=== PATIENT | male | born 1960 | race Caucasian/White ===

== ENCOUNTER 2024-02-15 08:23 | Emergency (ER) | payer OTHER, SELFPAY ==
--- NOTE | ~2024-02-15 | CT_ITS ---
EXAMINATION: CT HEAD WITHOUT CONTRAST CLINICAL INFORMATION: Mechanical fall. Blunt head trauma without loss of consciousness, significant head injury and posttraumatic headache and dizziness. COMPARISON: None available. TECHNIQUE: Contiguous axial imaging was performed from the skull base to vertex without intravenous administration of contrast. This CT examination was performed using dose optimization techniques as appropriate, variously including the following: *Automated exposure control *Adjustment of mA and/or kV according to patient size (this includes techniques or standardized protocols for targeted exams where dose is matched to indication/reason for exam; i.e. extremities or head) *Use of iterative reconstruction technique DLP: 891.31 mGy-cm FINDINGS: Ventricles, sulci and cisterns are normal for the patient's age. There is no midline shift, no abnormal intra- or extra- axial fluid accumulation. [place] and white matter differentiation is normal. Bone window images show no evidence of skull fracture. CT/CT cervical spine wo IV con IMPRESSION: 1. Normal CT scan of the brain. 2. No intracranial hemorrhage or skull fracture is seen. 3. No evidence of space occupying lesion could be found. 4. The current plain CT scan of the brain shows no diagnostic evidence of acute cerebral infarction. EXAMINATION: CT CERVICAL SPINE WITHOUT CONTRAST CLINICAL INFORMATION: Mechanical fall. Blunt head trauma without loss of consciousness, significant head injury and posttraumatic headache and dizziness. COMPARISON: None available. TECHNIQUE: Multiple 2.0 mm axial images were obtained from base of skull to T1 levels without IV contrast enhancement. Sagittal and coronal 2.0 mm bone window images were reconstructed from axial image data. This CT examination was performed using dose optimization techniques as appropriate, variously including the following: *Automated exposure control *Adjustment of mA and/or kV according to patient size (this includes techniques or standardized protocols for targeted exams where dose is matched to indication/reason for exam; i.e. extremities or head) *Use of iterative reconstruction technique DLP: 733.91 mGy-cm FINDINGS: C1/C2: Bony structures are intact with normal alignment. There is no spinal stenosis. C2/C3: Bony structures are intact with normal alignment. There is no spinal stenosis. Bilateral C2/C3 neuroforamina are patent. Bilateral apophyseal joints are intact with normal alignment. C3/C4: Bony structures are intact with normal alignment. There is no spinal stenosis. There is moderate asymmetric left C3/C4 neural foraminal stenosis. Bilateral apophyseal joints are intact with normal alignment. C4/C5: Bony structures are intact with normal alignment. Large sharp anterior bridging syndesmophytes are present. There is no spinal stenosis. Bilateral C4/C5 neuroforamina are patent. Bilateral apophyseal joints are intact with normal alignment. C5/C6: Bony structures are intact with normal alignment. Large sharp anterior bridging syndesmophytes are present. There is asymmetric right posterior inferior C5 syndesmophyte mildly effacing the right lateral recess. There is no spinal stenosis. Bilateral C5/C6 neuroforamina are mildly stenosed. Bilateral apophyseal joints are intact with normal alignment. C6/C7: Bony structures are intact with normal alignment. Sharp anterior inferior C6 syndesmophyte is present. There is no spinal stenosis. Bilateral C6/C7 neuroforamina are patent. Bilateral apophyseal joints are intact with normal alignment. C7/T1: Bony structures are intact with normal alignment. Large sharp anterior bridging syndesmophytes are present. There is marked loss of intervertebral disc height. There is no spinal stenosis. Bilateral C7/T1 neuroforamina are patent. Bilateral apophyseal joints are intact with normal alignment. IMPRESSION: 1. Multilevel cervical syndesmophytes, advanced C7-T1 degenerative cervical disc disease are seen. 2. Right posterior inferior C5 syndesmophyte is present, mildly effacing the right lateral recess at C5-C6 level. 3. No cervical fracture or dislocation is seen. Fleischner guidelines were followed.
--- NOTE | ~2024-02-15 | XR_ITS ---
EXAMINATION: XR KNEE, RIGHT CLINICAL INFORMATION: Patient states he fell yesterday, right knee pain. COMPARISON: None available. TECHNIQUE: 5 views of the right knee. FINDINGS: Trace joint effusion. Minimal tricompartmental arthritic changes. Minimal narrowing of the medial compartment. XR/XR knee RT 4V IMPRESSION: Minimal tricompartmental arthritic changes. This study was presented today February 15, 2024 for interpretation. Stat results provided at this time as requested by referring provider.
[2024-02-15 08:37] VITALS: BP 120/64; PULSE 62; RESP 16; TEMP 37; O2SAT 97; BMI 36.8
--- NOTE | 2024-02-15 08:45 | ECG_ITS ---
Test Reason : dizziness Blood Pressure : / mmHG Vent. Rate : 059 BPM Atrial Rate : 059 BPM P-R Int : 130 ms QRS Dur : 100 ms QT Int : 442 ms P-R-T Axes : 052 054 069 degrees QTc Int : 437 ms Sinus bradycardia Otherwise normal ECG No previous ECGs available Referred By: Generic ED Physician Electronically Signed By:BLAKE CHERRY MD
--- NOTE | 2024-02-15 08:54 | ED.GENADULT ---
HPI - General Adult General Chief complaint: Fall Stated complaint: Fall - knee injury Time Seen by Provider: 02/15/24 08:54 Source: patient Mode of arrival: ambulatory Limitations: no limitations History of Present Illness ED Provider: mary CORDERO narrative: Patient is a 63-year-old male with history of DM, HTN, CLL, CHF, COPD, CKD stage III, neurogenic bladder presenting to the ED with complaint of right knee pain after a fall yesterday. He was at [facility] for a pre-op echo, and when walking out of the parking lot he circled his cane several times while fooling around. This caused him to become dizzy and he fell to the ground onto his right knee. He did strike his head but denies loss of consciousness. He was able to ambulate afterwards but complains of ongoing pain to his knee, worse with kneeling. He also reports intermittnet episodes of dizziness over the last 1-2 months. He describes these as brief episodes of a few seconds of the room spinning, worse with position changes. He notices this specifically when getting into bed to lay down and with other position changes. He denies headaches, blurred vision, double vision or other visual changes. Denies chest pain, palpitations or dyspnea. States his primary concern today is evaluation of his knee pain. MD complaint: right knee pain Onset (ago): hour(s) Radiation: non-radiation Severity: moderate Quality: aching Pain Consistency: colicky Relieving factors: rest Exacerbating factors: movement and other (kneeling) Associated symptoms: other (episodic dizziness) Treatments prior to arrival: none Related Data Allergies Allergy/AdvReac Type Severity Reaction Status Date / Time Sulfa (Sulfonamide Allergy Rash Verified 02/15/24 08:44 Antibiotics) ticagrelor [From Brilinta] Allergy Abdominal Verified 02/15/24 08:44 Pain Review of Systems Review of Systems: As per HPI. Yes all other systems are reviewed and are negative Constitutional: Constitutional: Reports as per HPI [facility] Social History Social History Advance Directives: Yes Advance Directives Information Provided: Yes Advance Directives on File: No Physical Exam ED Vital Signs: Vital Signs - 24 hr 02/15/24 08:37 02/15/24 09:42 02/15/24 09:44 Temperature 98.6 F Pulse Rate 62 54 60 Respiratory Rate 16 Blood Pressure 120/64 109/63 94/49 L Pulse Oximetry 97 Oxygen Delivery Method Room Air 02/15/24 09:46 Temperature Pulse Rate 59 Respiratory Rate Blood Pressure 115/62 Pulse Oximetry Oxygen Delivery Method BMI result Body Mass Index 36.8 Vital signs have been reviewed and appear to be correct. Blood pressure normal. Heart rate normal. Respiratory rate normal. Temperature normal. Oxygen saturation normal. Const General: cooperative and no acute distress Orientation/consciousness: oriented to person, oriented to place, oriented to time and patient oriented x3 Limitations: no limitations HENMT Head: Yes normocephalic and Yes atraumatic Ears: external ears normal General nose exam: Normal external nose present Face and sinus: Yes face symmetric Mouth: oropharynx normal and moist mucous membranes Throat: Yes uvula midline Eyes General: appearance normal, both eyes and all related structures Pupils: Equal, round and reactive pupils present EOM: EOMs intact bilaterally and No Nystagmus present Neck Neck: Yes normal visual inspection, Yes no meningeal signs and Yes supple Resp Effort & Inspection: normal respiratory effort and able to speak in complete sentences Auscultation: clear to auscultation bilaterally Cardio Rate: regular rate Rhythm: regular rhythm Heart sounds: S1 normal heart sound present and S2 normal heart sound present GI Palpation (GI): Soft to palpation and nontender Auscultation: normoactive bowel sounds General: Yes no CVA tenderness Back/Spine/Pelvis Back: no CVA tenderness Skin General skin exam: elasticity normal and turgor normal Neuro General: oriented to person, oriented to place, oriented to time, patient oriented x3, No gait normal (ambulates with limp at baseline, no ataxia), tone normal, moves all extremities, Normal light touch and pain sensation, no meningeal signs, no focal motor deficits, CN's II-XI intact bilaterally, deep tendon reflexes 2+ bilaterally and [place] (positive left) Cranial nerves: Yes Equal, round and reactive pupils present and No Nystagmus present Cognition (Neuro): normal cognition Gait exam (Neuro): not ataxic Motor exam (neuro): 5/5 motor strength present throughout, Pronator motor function not present, no tremor noted, Normal motor muscle tone present throughout and Motor abnormalities not present Coordination: [id number] test normal, [id number] test normal, does not sway with eyes open and Romberg test negative Extrem General: Yes full ROM, Yes no pedal edema and Yes no calf tenderness Right lower extremity: knee Details: tenderness Location: of the patella, normal ROM, knee ligament exam normal and abrasion knee Details: multiple; no swelling, no ecchymosis, no deformity and no unusual warmth and foot Details: vascular exam Details: dorsalis pedis pulse present and posterior tibial pulse present Psych Mental Status: mental status grossly normal Affect: normal affect Thought process: Normal thought process present Medical Decision Making Medical Decision Making [facility] Narrative: Patient is a 63-year-old male with history of DM, HTN, CLL, CHF, COPD, CKD stage III, neurogenic bladder presenting to the ED with complaint of right knee pain after a fall yesterday. On exam patient is awake, A+Ox3, VS WNL, afebrile, normal neurological exam without focal deficits, physical exam findings as above. Given reported symptoms and physical exam findings, initial differential includes right knee contusion vs fracture. Patient stating he is only concerned with his knee and not his dizziness, however concern for ICH, skull or cervical vertebral fracture or subluxation given fall with headstrike. Physical exam findings consistent with peripheral cause for dizziness such as BPPV. Labs notable for leukocytosis, neutropenia, and elevated lymphocytes consistent with CLL. X-ray right knee notable for no acute fracture. CT head and c-spine notable for no evidence of ICH, skull or cervical vertebral fracture or subluxation. My interpretation is in agreement with the radiologist's interpretation. Patient updated on results. Left-sided Monique maneuver performed, and patient provided with printed instructions for how to continue with these exercises at home. Instructed patient to follow up with PCP. Return precautions discussed at bedside. Patient verbalized understanding of and agreement with plan. Differential Diagnosis Differential Diagnoses: The differential diagnosis associated with the presentation includes As per [facility]. Admission/Observation Consideration of admission/observation: Escalation of care including admission/observation considered Patient would have been admitted to the hospital had their work up had any findings where hospital admission was appropriate and their clinical presentation warranted hospital admission. Lab Data [facility] Lab Attestation statement: I reviewed the patient's lab results. as per [facility] 02/15/24 08:59 02/15/24 08:59 Labs: Lab Results 02/15/24 Range/Units 08:59 WBC 14.9 H (4.8-10.8) X10*3/uL RBC 4.97 (4.60-5.80) X10*6/uL Hgb 15.1 (14.0-18.0) g/dl Hct 44.0 (42.0-52.0) % MCV 88.5 (80.0-98.0) fL MCH 30.4 (27.0-33.0) pg MCHC 34.3 (31.0-36.0) g/dl RDW 14.0 (11.0-16.0) % Plt Count 109 L (160-400) X10*3/uL MPV 10.6 (9.4-12.4) fL Immature Gran % (Auto) Cancelled Neut % (Auto) Cancelled Lymph % (Auto) Cancelled [place] % (Auto) Cancelled Eos % (Auto) Cancelled Baso % (Auto) Cancelled Lymph # (Auto) Cancelled [place] # (Auto) Cancelled Eos # (Auto) Cancelled Baso # (Auto) Cancelled Abs Immat Gran (auto) Cancelled Absolute Neuts (auto) Cancelled Absolute Nucleated RBC 0.000 (0.0-0.012) X10*3/uL Nucleated RBC % (auto) 0.0 (0.0-0.2) /100WBC Neutrophils % (Manual) 32 L (45-73) % Band Neutrophils % 1 L (3-5) % Lymphocytes % (Manual) 58 H (20-40) % Atypical Lymphs % (Man) 2 (0-6) % Monocytes % (Manual) 3 (2-11) % Eosinophils % (Manual) 2 (0-4) % Basophils % (Manual) 1 (0-2) % Metamyelocytes % 1 % Abs Neuts (Manual) 4.9 (2.0-8.3) X10*3/uL Lymphocytes # (Manual) 8.6 H (1.2-4.9) X10*3/uL Atyp Lymphs # (Manual) 0.3 x10*3/uL Monocytes # (Manual) 0.4 (0.1-1.2) X10*3/uL Eosinophils # (Manual) 0.3 (0.0-0.4) X10*3/uL Basophils # (Manual) 0.1 (0.0-0.2) X10*3/uL Metamyelocytes # 0.1 X10*3/uL Smudge Cells PRESENT Platelet Estimate DECREASED (NORMAL) Plt Morphology Comment NORMAL RBC Morphology NORMAL Sodium 142 (135-145) mmol/L Potassium 4.1 (3.3-5.1) mmol/L Chloride 105 (96-108) mmol/L Carbon Dioxide 26 (22-29) mmol/L Anion Gap 15 (12-20) BUN 17 H (9-16) mg/dL Creatinine 1.39 (0.5-1.4) mg/dL Estim Creat Clear Calc 71.3 Estimated GFR 52 Random Glucose 250 H (60-115) mg/dL Calcium 9.5 (8.4-10.2) mg/dL Independent Interpretation I performed an independent interpretation of an: Plain X-Ray and CT Scan Interpretation: X-ray right knee notable for no acute fracture. CT head and c-spine notable for no evidence of ICH, skull or cervical vertebral fracture or subluxation. Radiology Impression Discussion of test interpretation with radiology: I have reviewed the radiologist's reading. Radiologist Impression: MPRESSION: 1. Multilevel cervical syndesmophytes, advanced C7-T1 degenerative cervical disc disease are seen. 2. Right posterior inferior C5 syndesmophyte is present, mildly effacing the right lateral recess at C5-C6 level. 3. No cervical fracture or dislocation is seen. XR/XR knee RT 4V IMPRESSION: Minimal tricompartmental arthritic changes. This study was presented today February 15, 2024 for interpretation. Stat results provided at this time as requested by referring provider. External Record Review External record reviewed: Inpatient record, Office record and Outpatient record Discharge Plan Discharge Clinical Impression: Contusion of right knee, Vertigo Patient Disposition: Home, Self-Care Instructions: Vertigo (DC), Contusion in Adults (ED), R.I.C.E. Treatment (ED) Additional Instructions: You were evaluated in the emergency department today for right knee pain after an episode of dizziness. Your knee x-ray did not show evidence of a fracture. We recommend keeping your leg elevated at rest, and applying ice for 10-15 minutes at a time several times daily. Do not apply ice directly to your skin. Your evaluation suggests that your dizziness symptoms are most likely due to peripheral vertigo. You can continue to do the Monique maneuvers at home 3 times daily to help relieve your symptoms, instructions have been included in your discharge paperwork. Please follow up with your primary care provider within the next 3 days. Return to the emergency department immediately for worsening or uncontrolled symptoms, worsening headache, chest pain, shortness of breath, persistent vomiting, vision changes, fainting, or for any other concerning symptoms. Print Language: Syriac
[2024-02-15 09:10] LABS: Hemoglobin 15.1 g/dl (14.0-18.0); Mean Corpuscular HGB Conc 34.3 g/dl (31.0-36.0); Mean Corpuscular Hemoglobin 30.4 pg (27.0-33.0); Mean Corpuscular Volume 88.5 fL (80.0-98.0); Red Blood Count 4.97 X10*6/uL (4.60-5.80); White Blood Count 14.9 X10*3/uL (4.8-10.8)
[2024-02-15 09:19] LABS: Anion Gap 15 (12-20); Blood Urea Nitrogen 17 mg/dL (9-16); Calcium 9.5 mg/dL (8.4-10.2); Carbon Dioxide 26 mmol/L (22-29); Chloride 105 mmol/L (96-108); Creatinine Clr Calc Pharmacy 71.3; Estimated Glomerular Filt Rate 52; Glucose Random 250 mg/dL (60-115); Potassium 4.1 mmol/L (3.3-5.1); Sodium 142 mmol/L (135-145)
--- NOTE | 2024-02-15 09:19 | PC.NURSE ---
pt to radiology
[2024-02-15 09:42] VITALS: BP 109/63; PULSE 54
[2024-02-15 09:44] VITALS: BP 94/49; PULSE 60
[2024-02-15 09:46] VITALS: BP 115/62; PULSE 59
--- NOTE | 2024-02-15 09:53 | PC.NURSE ---
orthostats performed, pt became extremely dizzy from laying to sitting but remained unchanged from sitting to standing. denies shest pain/sob
[2024-02-15 10:01] LABS: Mean Platelet Volume 10.6 fL (9.4-12.4); Platelet Count 109 X10*3/uL (160-400)
[2024-02-15 10:03] LABS: Atypical Lymph Absolute Manual 0.3 x10*3/uL; Atypical Lymphs Percent Manual 2 % (0-6); Band Neutrophils Percent 1 % (3-5); Basophils Abs Manual 0.1 X10*3/uL (0.0-0.2); Basophils Percent Manual 1 % (0-2); Eosinophils Absolute Manual 0.3 X10*3/uL (0.0-0.4); Eosinophils Percent Manual 2 % (0-4); Lymphocytes Absolute Manual 8.6 X10*3/uL (1.2-4.9); Lymphocytes Percent Manual 58 % (20-40); Metamyelocytes Absolute 0.1 X10*3/uL; Metamyelocytes Percent 1 %; Monocytes Absolute Manual 0.4 X10*3/uL (0.1-1.2); Monocytes Percent Manual 3 % (2-11); Neutrophils Absolute Manual 4.9 X10*3/uL (2.0-8.3); Neutrophils Percent Manual 32 % (45-73)
[2024-02-15 10:04] LABS: Platelet Estimate DECREASED (NORMAL); Platelet Morphology Comment NORMAL; RBC Morphology NORMAL; Smudge Cells PRESENT
--- NOTE | 2024-02-15 11:08 | PC.NURSE ---
per provider UA is not needed, pt also states he self caths and has no feeling of urgency as to when to go he caths himself throughout the day.
--- NOTE | 2024-02-15 12:46 | MHC.EDTECH ---
This tech answered call bailee. Patient asking for something surgery , He states his sugar is low I asked him what his meter was saying, he stated 117 and that is low for him. Relayed information to SHILA Pickens
[2024-02-15 14:48] VITALS: BP 105/62; PULSE 53; RESP 15; TEMP 36.3; O2SAT 98
== END 2024-02-15 14:48 | disposition home or self-care (01) ==
PROVIDERS: Emergency Provider Emergency Medicine
DX: S80.01XA Contusion of right knee, initial encounter (principal); W18.30XA Fall on same level, unspecified, initial encounter; Y93.9 Activity, unspecified; Y92.9 Unspecified place or not applicable; Y99.9 Unspecified external cause status; R42 Dizziness and giddiness; M25.561 Pain in right knee; E11.22 Type 2 diabetes mellitus with diabetic chronic kidney disease; I13.0 Hypertensive heart and chronic kidney disease with heart failure and stage 1 through stage 4 chronic kidney disease, or unspecified chronic kidney disease; N18.30 Chronic kidney disease, stage 3 unspecified
CPT/HCPCS: 36415; 70450; 72125; 73564; 80048; 85007; 85025; 85027; 93005; 99284

== ENCOUNTER → 2024-02-15 08:45 | Outpatient (BNV) | payer OTHER, SELFPAY | PROVIDERS: Emergency Provider Emergency Medicine; Visit Provider Internal Medicine Cardiovascular Disease | DX: R42 Dizziness and giddiness (principal); R00.1 Bradycardia, unspecified | CPT/HCPCS: 93010 ==

== ENCOUNTER 2024-04-13 11:28 | Inpatient (IN) | payer MEDICAID, SELFPAY ==
--- NOTE | ~2024-04-13 | XR_ITS ---
EXAMINATION: XR CHEST CLINICAL INFORMATION: Right-sided rib cage pain COMPARISON: CT abdomen scalp 04/13/2024. CT cervical spine 02/15/2024. TECHNIQUE: AP portable upright view of the chest was obtained. FINDINGS: No acute rib fracture. Widening of the right AC joint raises the possibility of an AC joint separation. However, there is also widening of the left AC joint. Minor streaky lung opacities at the right base likely subsegmental atelectasis due to splinting. No lobar consolidation, effusion or pneumothorax. Heart and mediastinal grossly within normal limits. Nonobstructive gas pattern. XR/XR chest 1V IMPRESSION: 1. Widening of the right acromioclavicular joint. 2. Streaky opacity at the right base. Electronically signed by: Juan Jose Harris MD 04/15/2024 10:47 AM EDT
--- NOTE | ~2024-04-13 | CT_ITS ---
EXAMINATION: CT ABDOMEN AND PELVIS WITH CONTRAST CLINICAL INFORMATION: Right lower quadrant pain COMPARISON: None available. TECHNIQUE: Multidetector volumetric images were obtained from the superior aspect of the liver through the pubic symphysis following administration 85 mL of Omnipaque 350 intravenous contrast. Sagittal and coronal reformatted images were obtained on the technologist's workstation. Oral contrast: No This CT examination was performed using dose optimization techniques as appropriate, variously including the following: *Automated exposure control *Adjustment of mA and/or kV according to patient size (this includes techniques or standardized protocols for targeted exams where dose is matched to indication/reason for exam; i.e. extremities or head) *Use of iterative reconstruction technique DLP: 903 mGy-cm FINDINGS: LUNG BASES: There is platelike atelectasis right middle lobe. The heart size is normal. No evidence of hiatal hernia. LIVER, GALLBLADDER, AND BILIARY TREE: The liver is enlarged in size measuring 19 cm. Otherwise liver is normal shape and attenuation. No focal lesion or biliary ductal dilatation seen. The gallbladder is unremarkable with no evidence of radiopaque gallstones, gallbladder wall thickening, or obvious pericholecystic inflammatory changes. PANCREAS: Unremarkable. SPLEEN: Unremarkable. ADRENAL GLANDS: Unremarkable. KIDNEYS AND URETERS: The kidneys are normal in size, shape, and attenuation. No hydronephrosis, hydroureter, or calculi seen. No perinephric stranding. There is a 1.2 cm exophytic cyst mid pole right kidney and lower pole left kidney BLADDER: The bladder is mildly distended There is mild posterior bladder wall thickening. No radiopaque calculi. GASTROINTESTINAL TRACT: There are scattered stool, diverticuli and gas seen in colon without distention. The small bowel loops are normal caliber. Appendix is normal caliber. No free air or free fluid seen. ABDOMINAL WALL: No significant hernia is appreciated. LYMPH NODES: Normal. VASCULAR: Unremarkable. PELVIC VISCERA: The prostate gland is mildly enlarged. Mild posterior bladder wall thickening with bladder enlargement is noted. OSSEOUS STRUCTURES: Mild degenerative disc changes L4-5 and L2-3 disc levels. No aggressive lytic or sclerotic process seen. There is mild ventral spondylosis throughout lower dorsal and lumbar spine. CT/CT abdomen pelvis w IV con IMPRESSION: 1. No acute intra-abdominal process seen. 2. Mild hepatomegaly. 3. Mild constipation. 4. Mild posterior bladder wall thickening with bladder enlargement. 5. Mild prostate enlargement. Fleischner guidelines were followed. Electronically signed by: Braulio Pierre MD 04/13/2024 10:36 PM EDT RP
[2024-04-13 11:34] VITALS: BP 135/68; PULSE 69; RESP 16; TEMP 35.8; O2SAT 98; BMI 38.0
--- NOTE | 2024-04-13 11:35 | ED.MALEGU ---
HPI - Male Genitourinary General Chief complaint: Urogenital-Male Stated complaint: private area discomfort Time Seen by Provider: 04/13/24 20:51 Source: patient Mode of arrival: ambulatory Limitations: no limitations History of Present Illness ED Provider: Dr. Maribell Cha HPI Narrative: Patient comes to the emergency room complaining of right lower quadrant pain starting today. Patient states that he has history of neurogenic bladder, frequent UTIs. Patient has had dysuria and abdominal discomfort for several months, but today patient started having right upper quadrant pain and it has been constant nonradiating. Patient denies history of kidney stones. Patient denies hematuria or dysuria. Related Data Allergies Allergy/AdvReac Type Severity Reaction Status Date / Time Sulfa (Sulfonamide Allergy Rash Verified 04/13/24 11:35 Antibiotics) ticagrelor [From Brilinta] Allergy Abdominal Verified 04/13/24 11:35 Pain Review of Systems Review of Systems: Constitutional : No Weight loss, No Fever, No Chills, No Night Sweats, No Fatigue, No Malaise ENT/Mouth : No Hearing loss, No Ear Pain, No Nasal Congestion, No Sinus Pain, No Hoarseness, No sore throat, No Rhinorrhea, No Swallowing Difficulty Eyes: No Eye Pain, No Swelling, No Redness, No Foreign Body, No Discharge, No Vision Changes Cardiovascular : No Chest Pain, No SOB, No Dyspnea on Exertion, No Orthopnea, No Edema, No Palpitations Respiratory : No Cough, No Sputum, No Wheezing, No Smoke Exposure, No Dyspnea Gastrointestinal : No Nausea, No Vomiting, No Diarrhea, No Constipation, complaining of suprapubic pressure and right lower quadrant pain, no hematochezia Genitourinary : no irregular bleeding, No Dysuria, No Urinary Frequency, No Hematuria, No Urinary Incontinence, No Urgency, denies Flank Pain, No Urinary Flow Changes, No Hesitancy Musculoskeletal : No joint pain, No Myalgias, No Joint Swelling Skin : No Skin Lesions, No rash Neuro : No Weakness, No Numbness, No Paresthesias, No Loss of Consciousness, No Dizziness, No Headache Psych : No Anxiety/Panic, No Depression, No SI/HI/AH/VH, No Social Issues, Heme/Lymph: No Bruising, No Bleeding,No Lymphadenopathy Endocrine : No Polyuria, No Polydipsia, No Temperature Intolerance [facility] Past Medical History Medical History (Updated 04/13/24 @ 23:04 by Maribell Cha MD) CLL (chronic lymphocytic leukemia) Frequent UTI Neurogenic bladder Coronary artery disease Diabetes Hyperlipidemia Hypertension Social History Social History Alcohol intake: current Alcohol intake frequency: holidays/special occasions only Smoked in Last 30 Days: No Use of substances other than those prescribed or required for medical reasons: Yes Substance Use Type: Marijuana Substance Use Frequency: Occasionally Advance Directives: No Advance Directives Information Provided: No Do you have a plan to hurt others: No Plan Physical Exam Vital Signs: Vital Signs: Last Vital Signs Temp 97.9 F 04/13/24 19:11 Pulse 60 04/13/24 19:11 Resp 18 04/13/24 19:11 BP 134/67 04/13/24 19:11 Pulse Ox 97 04/13/24 19:11 O2 Del Method Room Air 04/13/24 11:34 BMI result Body Mass Index 38.0 Const: Other: Appearance: Alert. Oriented X3. No acute distress. Eyes: Pupils equal, round and reactive to light. ENT: Pharynx normal. Neck: Normal inspection. Neck supple. No lymph nodes noted. No crepitus CVS: Normal heart rate and rhythm. Pulses normal. Normal S1 and S2 Respiratory: No respiratory distress. Breath sounds normal. No Wheezing. No rales Abdomen: Soft , significant tenderness to palpation in the right lower quadrant, mild rebound, no guarding , mild CVA tenderness Skin: Skin warm and dry. Normal skin color. Normal skin turgor. Extremities: No lower extremity edema. No Lacerations. No Rash Neuro: Oriented X 3. No motor deficit. No sensory deficit. Moving all extremities. No slurred speech. CN 2 through 12 grossly intact Psych: calm, cooperative, normal affect Course Course Course Narrative: This is a Rapid Medical Examination (RME) performed by Matthew Barragan PA-C in triage. Full HPI, ROS, assessment and treatment plan per primary provider in the Main ED. 63 yo male with history of neurogenic bladder who self-cathiterizes, recurrent UTIs, hx CLL who presents to the ER for evaluation of UTI symptoms for the last 3 days. recently on antibiotics for UTI 1 week ago. reports extreme genital pain, bladder pain, urgency and frequency. no fevers, N/V/D. denies history of MDRO that he is aware of. Plan: labs and UA Medications Administered Discontinued Medications Generic Name Dose Route Start Last Admin Trade Name Isela PRN Reason Stop Dose Admin Piperacillin Sod/Tazobactam 50 mls @ 100 mls/hr 04/13/24 21:01 04/13/24 22:23 Sod 3.375 gm/ Sodium Chloride IV 04/13/24 21:30 Infused ONCE ONE Infusion Iohexol 85 ml 04/13/24 22:15 04/13/24 22:16 Iohexol 350 Mg/Ml 100 Ml Infus..Btl IV 04/13/24 22:16 85 ml ONCE ONE Administration Morphine Sulfate 4 mg 04/13/24 21:01 04/13/24 21:28 Morphine Sulfate 4 Mg/Ml Cartridge IVPUSH 04/13/24 21:02 4 mg ONCE ONE Administration Protocol Ondansetron HCl 4 mg 04/13/24 21:01 04/13/24 21:28 Ondansetron Hcl 4 Mg/2 Ml Vial IVPUSH 04/13/24 21:02 4 mg ONCE ONE Administration Medical Decision Making Medical Decision Making [facility] Narrative: On physical exam, patient has significant pain to palpation in the right lower quadrant, no CVA tenderness. Physical exam concerning for appendicitis -my interpretation of labs: Patient's white blood cell count 25.9, chemistry shows a creatinine of 1.44, positive UTI. -empirically treating for appendicitis and UTI, patient receiving a dose of Zosyn. -patient receiving IV fluids, Zofran and IV morphine. -CT scan of the abdomen pelvis do not show appendicitis or a kidney stone. Patient's pain likely secondary to pyelonephritis. -patient is still having pain despite having pain medication. Patient has high leukocytosis. Blood cultures pending. Patient was treated with Zosyn empirically. -patient's blood pressure within normal limits, no fever. Sepsis is not suspected. -I discussed the patient with Dr. Andrade from the Medicine team, patient being admitted. -Patient agrees with plan Differential Diagnosis Differential Diagnoses: The differential diagnosis associated with the presentation includes (Appendicitis, pyelonephritis, ureterolithiasis, UTI, SBO) Admission/Observation Consideration of admission/observation: Escalation of care including admission/observation considered (Given patient's labs and symptoms, admission considered) Lab Data [facility] Lab Attestation statement: I reviewed the patient's lab results. 04/13/24 12:24 04/13/24 12:24 Labs: Lab Results 04/13/24 04/13/24 Range/Units 12:24 21:22 WBC 25.9 H (4.8-10.8) X10*3/uL RBC 5.42 (4.60-5.80) X10*6/uL Hgb 16.2 (14.0-18.0) g/dl Hct 49.0 (42.0-52.0) % MCV 90.4 (80.0-98.0) fL MCH 29.9 (27.0-33.0) pg MCHC 33.1 (31.0-36.0) g/dl RDW 15.5 (11.0-16.0) % Plt Count 150 L D (160-400) X10*3/uL MPV 10.3 (9.4-12.4) fL Immature Gran % (Auto) 3.0 H (0.0-0.4) % Neut % (Auto) 36.7 L (45-73) % Lymph % (Auto) 56.7 H (20-40) % [place] % (Auto) 3.0 (2-11) % Eos % (Auto) 0.2 (0-4) % Baso % (Auto) 0.4 (0-2) % Lymph # (Auto) 14.7 H (1.2-4.9) X10*3/uL [place] # (Auto) 0.8 (0.1-1.2) X10*3/uL Eos # (Auto) 0.0 (0.0-0.4) X10*3/uL Baso # (Auto) 0.1 (0.0-0.2) X10*3/uL Abs Immat Gran (auto) 0.78 H (0.00-0.03) X10*3/uL Absolute Neuts (auto) 9.5 H (2.0-8.3) x10*3/uL Absolute Nucleated RBC 0.000 (0.0-0.012) X10*3/uL Nucleated RBC % (auto) 0.0 (0.0-0.2) /100WBC Smear Tech's Comments VERIFIED Sodium 142 (135-145) mmol/L Potassium 4.6 (3.3-5.1) mmol/L Chloride 106 (96-108) mmol/L Carbon Dioxide 29 (22-29) mmol/L Anion Gap 12 (12-20) BUN 28 H (9-16) mg/dL Creatinine 1.44 H (0.5-1.4) mg/dL Estim Creat Clear Calc 70.0 Estimated GFR 50 Random Glucose 230 H (60-115) mg/dL Lactic Acid 1.3 (0.5-2.0) mmol/L Calcium 10.2 D (8.4-10.2) mg/dL Magnesium 2.2 (1.6-2.6) mg/dL Total Bilirubin 0.7 (0.0-1.0) mg/dL Direct Bilirubin 0.2 (0.0-0.5) mg/dL AST 8 (5-37) U/L ALT 13 (0-40) U/L Alkaline Phosphatase 163 H (39-117) U/L Total Protein 6.9 (6.5-8.0) g/dL Albumin 4.3 (3.5-5.0) g/dL Urine Color Yellow Urine Appearance Hazy Urine pH 6.0 (5.0-9.0) Ur Specific [place] 1.010 (1.005-1.025) Urine Protein 30 (1+) H (Neg-Trace) mg/dL Urine Glucose (UA) 500 H (Negative) mg/dL Urine Ketones Negative (Negative) mg/dL Urine Blood Moderate (2+) H (Negative) Urine Nitrite Negative (Negative) Ur Leukocyte Esterase Large (3+) H (Negative) Urine RBC 0-2 (0-2) /HPF Urine WBC >50 H (0-5) /HPF Ur Squamous Epith Cells 0-2 (0-2) /HPF Urine Bacteria None Seen (None Seen) Hyaline Casts 0-2 (0-2) /LPF Urine Yeast Present Independent Interpretation I performed an independent interpretation of an: CT Scan Radiology Impression Discussion of test interpretation with radiology: I have reviewed the radiologist's reading. Radiologist Impression: FINDINGS: LUNG BASES: There is platelike atelectasis right middle lobe. The heart size is normal. No evidence of hiatal hernia. LIVER, GALLBLADDER, AND BILIARY TREE: The liver is enlarged in size measuring 19 cm. Otherwise liver is normal shape and attenuation. No focal lesion or biliary ductal dilatation seen. The gallbladder is unremarkable with no evidence of radiopaque gallstones, gallbladder wall thickening, or obvious pericholecystic inflammatory changes. PANCREAS: Unremarkable. SPLEEN: Unremarkable. ADRENAL GLANDS: Unremarkable. KIDNEYS AND URETERS: The kidneys are normal in size, shape, and attenuation. No hydronephrosis, hydroureter, or calculi seen. No perinephric stranding. There is a 1.2 cm exophytic cyst mid pole right kidney and lower pole left kidney BLADDER: The bladder is mildly distended There is mild posterior bladder wall thickening. No radiopaque calculi. GASTROINTESTINAL TRACT: There are scattered stool, diverticuli and gas seen in colon without distention. The small bowel loops are normal caliber. Appendix is normal caliber. No free air or free fluid seen. ABDOMINAL WALL: No significant hernia is appreciated. LYMPH NODES: Normal. VASCULAR: Unremarkable. PELVIC VISCERA: The prostate gland is mildly enlarged. Mild posterior bladder wall thickening with bladder enlargement is noted. OSSEOUS STRUCTURES: Mild degenerative disc changes L4-5 and L2-3 disc levels. No aggressive lytic or sclerotic process seen. There is mild ventral spondylosis throughout lower dorsal and lumbar spine. CT/CT abdomen pelvis w IV con IMPRESSION: 1. No acute intra-abdominal process seen. 2. Mild hepatomegaly. 3. Mild constipation. 4. Mild posterior bladder wall thickening with bladder enlargement. 5. Mild prostate enlargement. Fleischner guidelines were followed. Critical Care Time Critical Care Time Critical Care Time: Yes Total Critical Care Time: 60 Attestation: I have personally provided critical care time. Time includes review of lab data, radiology results, discussion with consultants, and monitoring for potential decompensation. Intervention performed as documented. Discharge Plan Discharge Clinical Impression: Acute pyelonephritis Patient Disposition: Admitted As Inpatient Print Language: [place] Zealander
--- NOTE | 2024-04-13 12:12 | MHC.EDTECH ---
Patient self catheterized for urine sample.
[2024-04-13 12:33] LABS: Basophils Absolute Auto 0.1 X10*3/uL (0.0-0.2); Basophils Percent Auto 0.4 % (0-2); Eosinophils Percent Auto 0.2 % (0-4); Hemoglobin 16.2 g/dl (14.0-18.0); Imm Gran Abs Auto 0.78 X10*3/uL (0.00-0.03); Lymphocytes Absolute Auto 14.7 X10*3/uL (1.2-4.9); Lymphocytes Percent Auto 56.7 % (20-40); MANUAL DIFF FLAG SCAN; Mean Corpuscular HGB Conc 33.1 g/dl (31.0-36.0); Mean Corpuscular Hemoglobin 29.9 pg (27.0-33.0); Mean Corpuscular Volume 90.4 fL (80.0-98.0); Mean Platelet Volume 10.3 fL (9.4-12.4); Monocytes Absolute Auto 0.8 X10*3/uL (0.1-1.2); Neutrophils Absolute Auto 9.5 x10*3/uL (2.0-8.3); Neutrophils Percent Auto 36.7 % (45-73); Platelet Count 150 X10*3/uL (160-400); Red Blood Count 5.42 X10*6/uL (4.60-5.80); Red Cell Distribution Width 15.5 % (11.0-16.0); SCAN SMEAR FLAG 1; White Blood Count 25.9 X10*3/uL (4.8-10.8)
[2024-04-13 12:35] LABS: Appearance Urine Hazy; Color Urine Yellow; Glucose Urine UA 500 mg/dL (Negative); Leukocyte Esterase Urine Large (3+) (Negative); Nitrite Urine Negative (Negative); UMIC TRIGGER UACC YES; Urine Blood Moderate (2+) (Negative); Urine Ketones Negative (Negative); Urine Protein 30 (1+) mg/dL (Neg-Trace)
[2024-04-13 12:50] LABS: SLIDE REVIEW VERIFIED
[2024-04-13 12:52] LABS: Alanine Aminotransferase 13 U/L (0-40); Albumin Level 4.3 g/dL (3.5-5.0); Alkaline Phosphatase 163 U/L (39-117); Anion Gap 12 (12-20); Aspartate Amino Transferase 8 U/L (5-37); Bilirubin Direct 0.2 mg/dL (0.0-0.5); Bilirubin Total 0.7 mg/dL (0.0-1.0); Blood Urea Nitrogen 28 mg/dL (9-16); Calcium 10.2 mg/dL (8.4-10.2); Carbon Dioxide 29 mmol/L (22-29); Chloride 106 mmol/L (96-108); Estimated Glomerular Filt Rate 50; Glucose Random 230 mg/dL (60-115); Magnesium 2.2 mg/dL (1.6-2.6); Potassium 4.6 mmol/L (3.3-5.1); Sodium 142 mmol/L (135-145); Total Protein 6.9 g/dL (6.5-8.0)
[2024-04-13 12:56] LABS: Bacteria Urine None Seen (None Seen); Hyaline Casts Urine 0-2 /LPF (0-2); RBC Urine 0-2 /HPF (0-2); Squamous Epithelial Cell Urine 0-2 /HPF (0-2); UACC Culture Trigger YES; WBC Urine >50 /HPF (0-5)
[2024-04-13 19:11] VITALS: BP 134/67; PULSE 60; RESP 18; TEMP 36.6; O2SAT 97
[2024-04-13] MEDS: Piperacillin Sodium/Tazobactam 3.375 GM in 0.9 % Sodium Chloride 50 ML IV (21:28)
[2024-04-13] MEDS: Morphine Sulfate 4 MG/ML CARTRIDGE IVPUSH (21:28)
[2024-04-13] MEDS: ondansetron HCL 4 MG/2 ML VIAL IVPUSH (21:28)
[2024-04-13 21:40] LABS: Lactic Acid 1.3 mmol/L (0.5-2.0)
[2024-04-13] MEDS: iohexoL 350 MG/ML 100 ML INFUS..BTL 85 ML IV (22:16)
--- NOTE | 2024-04-13 23:33 | P.HPHOSP_ITS ---
History of Present Illness Date of Service: 04/13/24 Attending physician on admission: Caitlyn Rees Chief Complaint: Right lower quadrant pain John Dowell is a 63 y/o man with past medical history of neurogenic bladder self catheterizations, type 2 diabetes mellitus on insulin, CKD, CLL, COPD and hypertension presents to the emergency department complaining of right lower quadrant pain that has been getting worse over the last several days. He denied associated nausea, vomiting, fevers or chills. He denied bloody years. He did not report any headache, dizziness or palpitations. Did not report any acute cardiopulmonary symptoms. He is a former tobacco smoker. Denied tobacco smoking or illicit drug use. In the ED, he was found to have normal vital signs. Blood workup significant for leukocytosis of 25.9. There is no lactic acidosis. Creatinine is 1.44 and BUN 28. Urinalysis is consistent with urinary tract infection. Abdominal pelvis CT scan showed no acute intra-abdominal process. ED tx: Zosyn 3.375 mg IV, morphine 4 mg IV, Zofran 4 mg IV. Review of Systems 2 Review of Systems: All 12 systems were reviewed and normal except as noted in HPI. [facility] Medical History (Updated 04/14/24 @ 00:02 by Caitlyn Rees MD) CLL (chronic lymphocytic leukemia) Frequent UTI Neurogenic bladder Coronary artery disease Diabetes Hyperlipidemia Hypertension Social History Alcohol intake: current Alcohol intake frequency: holidays/special occasions only Smoked in Last 30 Days: No Use of substances other than those prescribed or required for medical reasons: Yes Substance Use Type: Marijuana Substance Use Frequency: Occasionally Advance Directives: No Advance Directives Information Provided: No Do you have a plan to hurt others: No Plan Meds Allergies Allergy/AdvReac Type Severity Reaction Status Date / Time Sulfa (Sulfonamide Allergy Rash Verified 04/13/24 11:35 Antibiotics) ticagrelor [From Brilinta] Allergy Abdominal Verified 04/13/24 11:35 Pain Active Medications: Current Medications Acetaminophen (Acetaminophen 325 Mg Tablet) 975 mg PO Q6H PRN PRN Reason: Pain, Mild (Pain Scale 1-3), fever or headache Atorvastatin Calcium (Atorvastatin Calcium 40 Mg Tablet) 40 mg PO ONCE ONE Stop: 04/13/24 23:30 Calcium Carbonate (Calcium Carbonate 750 Mg Tab.Chew) 750 mg PO Q4H PRN PRN Reason: Heartburn Enoxaparin Sodium (Enoxaparin Sodium 40 Mg/0.4 Ml Syringe) 40 mg SUBCUT Q24H MONICA Glucose (Glucose Gel 15 Gm Gel..Gram.) 15 gm PO Q15M PRN; Protocol PRN Reason: per Hypoglycemia Standing Ord. Lactated Ringer's (Lr) 1,000 mls @ 125 mls/hr IVCONT .Q8H MONICA Dextrose (D10) 250 mls @ 750 mls/hr IV Q15M PRN; Protocol PRN Reason: per Hypoglycemia Standing Ord. Lactated Ringer's (Lr) 1,000 mls @ 80 mls/hr IVCONT .[id number] [facility] Insulin Glargine (Insulin Glargine,Hum.Rec.Anlog 100 Unit/Ml 10 Ml Vial) 48 unit SUBCUT DAILY [facility] Insulin Human Lispro (Insulin Lispro 100 Unit/Ml 3 Ml Vial) 0 unit SUBCUT QIDACHS [facility]; Protocol Magnesium Hydroxide (Milk Of Magnesia 30 Ml Oral.Susp) 30 ml PO DAILY PRN PRN Reason: Constipation Melatonin (Melatonin 3 Mg Tablet) 6 mg PO BEDTIME PRN PRN Reason: Insomnia Pregabalin (Pregabalin 200 Mg Capsule) 200 mg PO ONCE ONE Stop: 04/13/24 23:30 Ranolazine (Ranolazine 500 Mg Tab.Er.12h) 1,000 mg PO ONCE ONE Stop: 04/13/24 23:30 Sodium Chloride (0.9 % Sodium Chloride Flush 3 Ml Syringe) 3 ml IVFLUSH QSHIFT [facility] Physical Exam 2 Vital Signs and Narrative: Vital Signs: Last Vital Signs Temp 97.9 F 04/13/24 19:11 Pulse 60 04/13/24 19:11 Resp 18 04/13/24 19:11 BP 134/67 04/13/24 19:11 Pulse Ox 97 04/13/24 19:11 O2 Del Method Room Air 04/13/24 11:34 BMI result Body Mass Index 38.0 Constitutional - Awake and Alert, No apparent distress. Pleasant. Cooperative. HEENT - PERRL, EOMI Heart - RRR, No murmurs. Lungs - Normal lung expansion, Normal respiratory effort, No respiratory distress, CTA bilaterally Abdomen - Nondistended, RLQ tenderness. No rebound. No guarding. Normal bowel sounds. - (+) CVA tenderness Extremities - mild bilateral pitting edema. Musculoskeletal - Normal inspection, normal ROM Skin - Warm/Dry Neurological - Alert & oriented x3. No focal weakness. Normal speech. Psychological - Appropriate affect Results Labs 04/13/24 12:24 04/13/24 12:24 Labs: Laboratory Results - last 24 hr 04/13/24 04/13/24 12:24 21:22 MCV 90.4 MCH 29.9 MCHC 33.1 RDW 15.5 Plt Count 150 L D MPV 10.3 Immature Gran % (Auto) 3.0 H Neut % (Auto) 36.7 L Lymph % (Auto) 56.7 H [place] % (Auto) 3.0 Eos % (Auto) 0.2 Baso % (Auto) 0.4 Lymph # (Auto) 14.7 H [place] # (Auto) 0.8 Eos # (Auto) 0.0 Baso # (Auto) 0.1 Abs Immat Gran (auto) 0.78 H Absolute Neuts (auto) 9.5 H Absolute Nucleated RBC 0.000 Nucleated RBC % (auto) 0.0 Smear Tech's Comments VERIFIED Anion Gap 12 Estim Creat Clear Calc 70.0 Estimated GFR 50 Random Glucose 230 H Lactic Acid 1.3 Calcium 10.2 D Magnesium 2.2 Total Bilirubin 0.7 Direct Bilirubin 0.2 AST 8 ALT 13 Alkaline Phosphatase 163 H Total Protein 6.9 Albumin 4.3 Urine Color Yellow Urine Appearance Hazy Urine pH 6.0 Ur Specific [place] 1.010 Urine Protein 30 (1+) H Urine Glucose (UA) 500 H Urine Ketones Negative Urine Blood Moderate (2+) H Urine Nitrite Negative Ur Leukocyte Esterase Large (3+) H Urine RBC 0-2 Urine WBC >50 H Ur Squamous Epith Cells 0-2 Urine Bacteria None Seen Hyaline Casts 0-2 Urine Yeast Present Imaging Radiologist's Impressions: Impressions Abdomen/Pelvis CT 04/13/24 22:20 IMPRESSION: 1. No acute intra-abdominal process seen. 2. Mild hepatomegaly. 3. Mild constipation. 4. Mild posterior bladder wall thickening with bladder enlargement. 5. Mild prostate enlargement. Fleischner guidelines were followed. Electronically signed by: Braulio Pierre MD 04/13/2024 10:36 PM EDT Assessment and Plan (1) Acute pyelonephritis: Status: Acute (2) Leukocytosis: Status: Acute Plan John Dowell is a 63 y/o man with past medical history of neurogenic bladder self cath admitted with: * Acute pyelonephritis. Admit to hospitalist service. Continue empiric IV antibiotic therapy with Zosyn and IV fluids. Blood and urine culture obtained -will follow results. * Leukocytosis likely multifactorial: CLL, UTI and dehydration. Continue to monitor. * Type 2 diabetes mellitus. Continue Lantus and insulin sliding scale. BG monitoring before meals at bedtime. Diabetic diet. * COPD, not in acute exacerbation. Continue home inhalers. * Essential hypertension. Continue metoprolol and losartan. * CKD stage 3A. Continue to monitor renal function. Avoid nephrotoxic agents. * History of CLL. Continue follow-up as an outpatient. * Hyperlipidemia. Continue statin. * GERD. Continue pantoprazole. * Obesity, class II. BMI 30.1 kg/m2. Weight loss. DVT prophylaxis: Lovenox Code status: Full Patient will need hospitalization for at least 2 midnights for acute pyelonephritis treatment with IV antibiotics and IV fluids. Quality Stroke Does the patient have a stroke diagnosis?: No VTE Prior VTE?: No VTE Risk Level:: Medical - moderate - high VTE Device Contraindication: Treatment Not Indicated VTE Drug Contraindication: N/A - Med Ordered
[2024-04-14 00:24] VITALS: BP 105/61; PULSE 55; RESP 17; TEMP 36.6; O2SAT 93
[2024-04-14] MEDS: Lactated Ringers 1,000 ML 80 ML IVCONT ×3 (00:27→21:41)
[2024-04-14] MEDS: 0.9 % Sodium Chloride Flush 3 ML SYRINGE IVFLUSH ×3 (00:30→21:27)
[2024-04-14] MEDS: Pregabalin 200 MG CAPSULE PO ×3 (01:35→21:27)
[2024-04-14] MEDS: Atorvastatin Calcium 40 MG TABLET PO ×2 (01:35→21:27)
[2024-04-14] MEDS: Ranolazine 500 MG TAB.ER.12H 1000 MG PO ×3 (01:35→21:36)
--- NOTE | 2024-04-14 03:25 | PC.NURSE ---
1500ml output after straight cath
[2024-04-14 03:57] VITALS: BMI 36.9
[2024-04-14 04:00] VITALS: BP 166/79; PULSE 55; RESP 17; TEMP 36.1; O2SAT 97
[2024-04-14] MEDS: Piperacillin Sodium/Tazobactam 3.375 GM in 0.9 % Sodium Chloride 50 ML IV ×3 (04:32→21:33)
[2024-04-14] MEDS: Acetaminophen 325 MG TABLET 975 MG PO ×4 (04:35→21:28)
[2024-04-14 06:48] VITALS: BP 153/69; PULSE 58; RESP 16; TEMP 36.6; O2SAT 100
[2024-04-14 07:11] LABS: Hematocrit 45.9 % (42.0-52.0); Mean Corpuscular HGB Conc 32.7 g/dl (31.0-36.0); Mean Corpuscular Hemoglobin 30.2 pg (27.0-33.0); Mean Corpuscular Volume 92.4 fL (80.0-98.0); Mean Platelet Volume 11.1 fL (9.4-12.4); Platelet Count 130 X10*3/uL (160-400); Red Blood Count 4.97 X10*6/uL (4.60-5.80); Red Cell Distribution Width 15.5 % (11.0-16.0); White Blood Count 19.5 X10*3/uL (4.8-10.8)
[2024-04-14 07:15] LABS: Glucose, Whole Blood 116 mg/dL (60-115)
[2024-04-14 07:16] LABS: Anion Gap 13 (12-20); Blood Urea Nitrogen 26 mg/dL (9-16); Calcium 9.4 mg/dL (8.4-10.2); Carbon Dioxide 28 mmol/L (22-29); Chloride 106 mmol/L (96-108); Creatinine Clr Calc Pharmacy 76.4; Estimated Glomerular Filt Rate 56; Glucose Random 120 mg/dL (60-115); Magnesium 2.1 mg/dL (1.6-2.6); Potassium 4.3 mmol/L (3.3-5.1); Sodium 143 mmol/L (135-145)
[2024-04-14 07:24] LABS: Band Neutrophils Percent 3 % (3-5); Lymphocytes Absolute Manual 5.1 X10*3/uL (1.2-4.9); Lymphocytes Percent Manual 26 % (20-40); Metamyelocytes Absolute 1.2 X10*3/uL; Metamyelocytes Percent 6 %; Monocytes Absolute Manual 0.4 X10*3/uL (0.1-1.2); Monocytes Percent Manual 2 % (2-11); Neutrophils Absolute Manual 12.9 X10*3/uL (2.0-8.3); Neutrophils Percent Manual 63 % (45-73)
[2024-04-14 07:25] LABS: Platelet Estimate DECREASED (NORMAL); Platelet Morphology Comment NORMAL; RBC Morphology NORMAL; Smudge Cells PRESENT
[2024-04-14] MEDS: Insulin Glargine,Hum.rec.anlog 100 UNIT/ML 10 ML VIAL 48 UNIT SUBCUT (09:13)
--- NOTE | 2024-04-14 10:33 | PHA.MEDREC ---
Addendum entered by Paty Jo RPh 04/14/24 10:59: Reviewed by [facility]. Pt states he takes 48 units of Lantus in the morning. Pt takes a sliding scale of Humalog 12-14 based on glucose levels. Original Note: Pharmacy Consult ? Medication Reconciliation Pharmacy has completed the medication reconciliation. Confirmed medications with patient and list patient had on him. Patient has on his person is Baqsimi, Glucose tablets and Nitroglycerin. I asked more about those and Mirtazapine 30mg and the patient states hes still taking the Mirtazapine and get that and the other medications [facility] in [place]. I called the [facility] and they confirmed the patient got the Baqsimi on January 062023, He got the Glucose tablets December 20 2023, He filled Mirtazapine 30mg tabs February 03 for 90 days and his Nitroglycerin tabs were last filled November of this year for him but patient says he has not had to use them in a while . He also confirmed his Lantus Solostar injection and he confirmed he injects 48 units every morning and he last did that yesterday morning. Patient also on a Insulin Lispo 100 unit injection and hes doing it based on a sliding scale per his sugar levels, he claims he was not able to take it yesterday but was able to do it 2 days ago.
[2024-04-14 11:02] LABS: Glucose, Whole Blood 297 mg/dL (60-115)
[2024-04-14] MEDS: Insulin Lispro 100 UNIT/ML 3 ML VIAL SUBCUT ×3 (11:40→21:26)
[2024-04-14] MEDS: Aspirin Enteric Coated 81 MG TABLET.DR PO (11:41)
[2024-04-14] MEDS: Metoprolol Succinate ER 50 MG TAB.ER.24H PO (11:41)
[2024-04-14] MEDS: Losartan Potassium 25 MG TABLET PO (11:41)
[2024-04-14] MEDS: Fluticasone Propionate Nasal 16 GM SPRAY 2 SPRAY NOSTRIL-B (13:12)
[2024-04-14] MEDS: oxyCODONE HCl Immed Release 5 MG TABLET PO ×2 (13:12→21:36)
--- NOTE | 2024-04-14 15:02 | MHC.CM.PN ---
Patient lives in a home w/ sister/nephew. Functionally independent. Ambulates w/ cane. Has CPAP, supplied by [facility]. Dx neurogenic bladder, self caths. Supplies through [facility] in [place]. PCP Alex Felipe MD Reports he has an HCP listing HCA's as 1) sister Rosibel and 2) ex Lisa Dowell DP: Goal is home self care. ? need for services, referrals in place. Car is in [facility] lot and patient would like to self transport. CM will continue to follow.
[2024-04-14 15:29] VITALS: BP 122/72; PULSE 57; RESP 18; TEMP 36.4; O2SAT 93
--- NOTE | 2024-04-14 15:57 | P.PNIM_ITS ---
Subjective Subjective Date of Service: 04/14/24 Interval History: pyelonephritis Review of Systems pain seems improving Encouraged for p.o. intake and hydration No fevers. Physical Exam 2 Vital Signs: Vital Signs: Last Vital Signs Temp 97.6 F 04/14/24 15:29 Pulse 57 04/14/24 15:29 Resp 18 04/14/24 15:29 BP 122/72 04/14/24 15:29 Pulse Ox 93 04/14/24 15:29 O2 Del Method Room Air 04/14/24 15:29 O2 Flow Rate 2 04/14/24 06:48 BMI result Body Mass Index 36.9 Appearance: Alert.? Oriented X3.? cvs: rrr, [id number] . res: clear to auscultation ,no rhonchii or wheezing abd: no rebound or guarding ,nt, bs present. ext pulses present , no cyanosis . neuro: axo3 , nonfocal. Objective Data Active Medications Acetaminophen (Acetaminophen 325 Mg Tablet) 975 mg PO TID [facility] Last Admin: 04/14/24 14:15 Dose: 975 mg Documented By: LEIDA Albuterol Sulfate (Albuterol Sulfate 90 Mcg 8 Gm Inhaler) 2 puff INHALE RQ6H PRN PRN Reason: wheezing Aspirin (Aspirin Enteric Coated 81 Mg Tablet.) 81 mg PO DAILY [facility] Last Admin: 04/14/24 11:41 Dose: 81 mg Documented By: LEIDA Atorvastatin Calcium (Atorvastatin Calcium 40 Mg Tablet) 40 mg PO BEDTIME [facility] Calcium Carbonate (Calcium Carbonate 750 Mg Tab.Chew) 750 mg PO Q4H PRN PRN Reason: Heartburn Docusate Sodium (Docusate Sodium 100 Mg Capsule) 100 mg PO BEDTIME [facility] Enoxaparin Sodium (Enoxaparin Sodium 40 Mg/0.4 Ml Syringe) 40 mg SUBCUT Q24H [facility] Last Admin: 04/14/24 01:32 Dose: Not Given Documented By: JOSY Non-Admin Reason: allergy to sulfa Fluticasone Propionate (Fluticasone Propionate Nasal 16 Gm [place]) 2 spray NOSTRIL-B DAILY [facility] Last Admin: 04/14/24 13:12 Dose: 2 spray Documented By: LEIDA Glucose (Glucose Gel 15 Gm Gel..Gram.) 15 gm PO Q15M PRN; Protocol PRN Reason: per Hypoglycemia Standing Ord. Dextrose (D10) 250 mls @ 750 mls/hr IV Q15M PRN; Protocol PRN Reason: per Hypoglycemia Standing Ord. Lactated Ringer's (Lr) 1,000 mls @ 80 mls/hr IVCONT .[id number] [facility] Last Admin: 04/14/24 13:08 Dose: 80 mls/hr Documented By: LEIDA Piperacillin Sod/Tazobactam (Sod 3.375 gm/ Sodium Chloride) 50 mls @ 100 mls/hr IV Q8H [facility] Last Infusion: 04/14/24 14:54 Dose: Infused Documented By: LEIDA Insulin Glargine (Insulin Glargine,Hum.Rec.Anlog 100 Unit/Ml 10 Ml Vial) 48 unit SUBCUT DAILY [facility] Last Admin: 04/14/24 09:13 Dose: 48 unit Documented By: LEIDA Insulin Human Lispro (Insulin Lispro 100 Unit/Ml 3 Ml Vial) 0.1 - 10 unit SUBCUT QIDACHS [facility]; Protocol Last Admin: 04/14/24 11:40 Dose: 6 unit Documented By: LEIDA Losartan Potassium (Losartan Potassium 25 Mg Tablet) 25 mg PO DAILY [facility]; Protocol Last Admin: 04/14/24 11:41 Dose: 25 mg Documented By: LEIDA Magnesium Hydroxide (Milk Of Magnesia 30 Ml Oral.Susp) 30 ml PO DAILY PRN PRN Reason: Constipation Melatonin (Melatonin 3 Mg Tablet) 6 mg PO BEDTIME PRN PRN Reason: Insomnia Metoprolol Succinate (Metoprolol Succinate Er 50 Mg Tab.Er.24h) 50 mg PO DAILY [facility]; Protocol Last Admin: 04/14/24 11:41 Dose: 50 mg Documented By: LEIDA Mirtazapine (Mirtazapine 30 Mg Tablet) 30 mg PO BEDTIME [facility] Nitroglycerin (Nitroglycerin 0.4 Mg Tab.Subl) 0.4 mg SUBLINGUAL Q5MX3 PRN PRN Reason: Chest Pain Non-Formulary Medication (Finerenone [Kerendia]) 10 mg PO DAILY [facility] Omeprazole (Omeprazole 20 Mg Capsule.Dr) 20 mg PO DAILY@0630 [facility] Oxycodone HCl (Oxycodone Hcl Immed Release 5 Mg Tablet) 5 mg PO Q4H PRN PRN Reason: Pain, Severe (Pain Scale 7-10) Last Admin: 04/14/24 13:12 Dose: 5 mg Documented By: LEIDA Polyethylene Glycol (Polyethylene Glycol 3350 17 Gm Powd.Pack) 17 gm PO DAILY PRN PRN Reason: Constipation Pregabalin (Pregabalin 200 Mg Capsule) 200 mg PO BID [facility] Last Admin: 04/14/24 11:41 Dose: 200 mg Documented By: LEIDA Ranolazine (Ranolazine 500 Mg Tab.Er.12h) 1,000 mg PO BID [facility] Last Admin: 04/14/24 11:41 Dose: 1,000 mg Documented By: LEIDA Sodium Chloride (0.9 % Sodium Chloride Flush 3 Ml Syringe) 3 ml IVFLUSH QSHIFT [facility] Last Admin: 04/14/24 14:15 Dose: 3 ml Documented By: LEIDA Tamsulosin HCl (Tamsulosin Hcl 0.4 Mg Capsule) 0.4 mg PO BEDTIME [facility] Labs 04/14/24 05:51 04/14/24 05:51 Labs: Laboratory Results - last 24 hr 04/13/24 04/14/24 04/14/24 21:22 05:51 07:08 MCV 92.4 MCH 30.2 MCHC 32.7 RDW 15.5 Plt Count 130 L MPV 11.1 Immature Gran % (Auto) Cancelled Neut % (Auto) Cancelled Lymph % (Auto) Cancelled [place] % (Auto) Cancelled Eos % (Auto) Cancelled Baso % (Auto) Cancelled Lymph # (Auto) Cancelled [place] # (Auto) Cancelled Eos # (Auto) Cancelled Baso # (Auto) Cancelled Abs Immat Gran (auto) Cancelled Absolute Neuts (auto) Cancelled Absolute Nucleated RBC 0.000 Nucleated RBC % (auto) 0.0 Neutrophils % (Manual) 63 Band Neutrophils % 3 Lymphocytes % (Manual) 26 Monocytes % (Manual) 2 Metamyelocytes % 6 Abs Neuts (Manual) 12.9 H Lymphocytes # (Manual) 5.1 H Monocytes # (Manual) 0.4 Metamyelocytes # 1.2 Smudge Cells PRESENT Platelet Estimate DECREASED Plt Morphology Comment NORMAL RBC Morphology NORMAL Anion Gap 13 Estim Creat Clear Calc 76.4 Estimated GFR 56 POC Glucose 116 H Random Glucose 120 H Lactic Acid 1.3 Calcium 9.4 D Magnesium 2.1 04/14/24 10:59 MCV MCH MCHC RDW Plt Count MPV Immature Gran % (Auto) Neut % (Auto) Lymph % (Auto) [place] % (Auto) Eos % (Auto) Baso % (Auto) Lymph # (Auto) [place] # (Auto) Eos # (Auto) Baso # (Auto) Abs Immat Gran (auto) Absolute Neuts (auto) Absolute Nucleated RBC Nucleated RBC % (auto) Neutrophils % (Manual) Band Neutrophils % Lymphocytes % (Manual) Monocytes % (Manual) Metamyelocytes % Abs Neuts (Manual) Lymphocytes # (Manual) Monocytes # (Manual) Metamyelocytes # Smudge Cells Platelet Estimate Plt Morphology Comment RBC Morphology Anion Gap Estim Creat Clear Calc Estimated GFR POC Glucose 297 H Random Glucose Lactic Acid Calcium Magnesium Microbiology Microbiology Results: Microbiology 04/13/24 Unknown Urine Culture - Preliminary Urine Catheterized - Straight Catheter Culture in progress. Assessment and Plan (1) Leukocytosis: Status: Acute (2) Acute pyelonephritis: Status: Acute Plan 63 y/o man with past medical history of neurogenic bladder self cath admitted with: Acute pyelonephritis: leucocystosis improving-multifactorial: CLL, UTI and dehydration. Continue empiric IV antibiotic therapy with Zosyn and IV fluids. Blood and urine culture obtained -will follow results. Type 2 diabetes mellitus. Continue Lantus and insulin sliding scale. BG monitoring before meals at bedtime. Diabetic diet. COPD, not in acute exacerbation. Continue home inhalers. Essential hypertension. Continue metoprolol and losartan. CKD stage 3A. Continue to monitor renal function. Avoid nephrotoxic agents. History of CLL. Continue follow-up as an outpatient. Hyperlipidemia. Continue statin. GERD. Continue pantoprazole. Obesity, class II. BMI 30.1 kg/m2. Encouraged for Weight loss and cutdown calories. Ongoing need for hospitalization: Acute pyelonephritis-need IV antibiotics and clinical monitoring for any worsening, monitor renal function electrolytes. Quality Stroke Does the patient have a stroke diagnosis?: No VTE Prior VTE?: No VTE Risk Level:: Medical - moderate - high VTE Device Contraindication: Treatment Not Indicated VTE Drug Contraindication: N/A - Med Ordered
[2024-04-14 16:10] LABS: Glucose, Whole Blood 180 mg/dL (60-115)
[2024-04-14 19:45] VITALS: PULSE 55; RESP 16; TEMP 36.1; O2SAT 93
[2024-04-14 20:07] LABS: Glucose, Whole Blood 225 mg/dL (60-115)
[2024-04-14] MEDS: Tamsulosin HCL 0.4 MG CAPSULE PO (21:27)
[2024-04-14] MEDS: Docusate Sodium 100 MG CAPSULE PO (21:27)
[2024-04-14] MEDS: Mirtazapine 30 MG TABLET PO (21:27)
[2024-04-14 22:50] VITALS: PULSE 53; RESP 16; O2SAT 92
[2024-04-15] VITALS (7 sets, daily range): BP systolic 96–125; BP diastolic 51–64; PULSE 50–63; RESP 16–20; TEMP 36.2–36.5; O2SAT 93–97
[2024-04-15] MEDS: Omeprazole 20 MG CAPSULE.DR PO (06:21)
[2024-04-15] MEDS: Piperacillin Sodium/Tazobactam 3.375 GM in 0.9 % Sodium Chloride 50 ML IV ×3 (06:24→21:00)
[2024-04-15 07:36] LABS: Glucose, Whole Blood 103 mg/dL (60-115)
[2024-04-15] MEDS: FINERENONE 10 MG 10 EACH PO (07:56)
[2024-04-15] MEDS: Ranolazine 500 MG TAB.ER.12H 1000 MG PO ×2 (07:57→20:49)
[2024-04-15] MEDS: Acetaminophen 325 MG TABLET 975 MG PO ×3 (07:57→20:50)
[2024-04-15] MEDS: Losartan Potassium 25 MG TABLET PO (07:58)
[2024-04-15] MEDS: Insulin Glargine,Hum.rec.anlog 100 UNIT/ML 10 ML VIAL 48 UNIT SUBCUT (07:59)
[2024-04-15] MEDS: Pregabalin 200 MG CAPSULE PO ×2 (07:59→21:00)
[2024-04-15] MEDS: 0.9 % Sodium Chloride Flush 3 ML SYRINGE IVFLUSH ×3 (07:59→20:48)
[2024-04-15] MEDS: Aspirin Enteric Coated 81 MG TABLET.DR PO (07:59)
[2024-04-15] MEDS: Fluticasone Propionate Nasal 16 GM SPRAY 2 SPRAY NOSTRIL-B (09:23)
[2024-04-15] MEDS: Lactated Ringers 1,000 ML 80 ML IVCONT (09:32)
[2024-04-15] MEDS: polyethylene glycoL 3350 17 GM POWD.PACK PO (09:35)
[2024-04-15 09:40] LABS: Hematocrit 45.1 % (42.0-52.0); Hemoglobin 14.7 g/dl (14.0-18.0); Mean Corpuscular HGB Conc 32.6 g/dl (31.0-36.0); Mean Platelet Volume 10.3 fL (9.4-12.4); Platelet Count 118 X10*3/uL (160-400); Red Cell Distribution Width 15.5 % (11.0-16.0); White Blood Count 16.7 X10*3/uL (4.8-10.8)
[2024-04-15 09:54] LABS: Alanine Aminotransferase 12 U/L (0-40); Albumin Level 3.5 g/dL (3.5-5.0); Alkaline Phosphatase 87 U/L (39-117); Anion Gap 11 (12-20); Aspartate Amino Transferase 8 U/L (5-37); Bilirubin Total 0.9 mg/dL (0.0-1.0); Blood Urea Nitrogen 24 mg/dL (9-16); Calcium 8.8 mg/dL (8.4-10.2); Carbon Dioxide 28 mmol/L (22-29); Chloride 105 mmol/L (96-108); Creatinine Clr Calc Pharmacy 65.3; Estimated Glomerular Filt Rate 47; Glucose Random 270 mg/dL (60-115); Potassium 4.5 mmol/L (3.3-5.1); Sodium 139 mmol/L (135-145); Total Protein 5.5 g/dL (6.5-8.0)
[2024-04-15 10:52] LABS: Folate 9.2 ng/mL (> or = 4.0); Vitamin B12 265 pg/mL (200-900)
--- NOTE | 2024-04-15 11:04 | HO.PM.IMPN ---
Subjective Subjective Date of Service: 04/15/24 Interval History: uti generalised weak has right side rib cage discomfort Review of Systems no fever rest as above. Physical Exam Vital Signs: Vital Signs: Last Vital Signs Temp 97.1 F 04/15/24 07:52 Pulse 51 04/15/24 07:52 Resp 18 04/15/24 07:52 BP 113/62 04/15/24 07:52 Pulse Ox 97 04/15/24 07:52 O2 Del Method Room Air 04/15/24 07:24 O2 Flow Rate 2 04/14/24 06:48 BMI result Body Mass Index 36.9 Appearance: Alert.? Oriented X3,?generalised weak cvs: rrr, [id number] . res: air entry seems fair , no rales or wheezing has some right sided rib cage discomfort abd: no rebound or guarding ,nt, bs present. ext pulses present , no cyanosis . neuro: axo3 , nonfocal. Objective Data Active Medications Acetaminophen (Acetaminophen 325 Mg Tablet) 975 mg PO TID [facility] Last Admin: 04/15/24 07:57 Dose: 975 mg Documented By: JIM Albuterol Sulfate (Albuterol Sulfate 90 Mcg 8 Gm Inhaler) 2 puff INHALE RQ6H PRN PRN Reason: wheezing Aspirin (Aspirin Enteric Coated 81 Mg Tablet.) 81 mg PO DAILY [facility] Last Admin: 04/15/24 07:59 Dose: 81 mg Documented By: JIM Atorvastatin Calcium (Atorvastatin Calcium 40 Mg Tablet) 40 mg PO BEDTIME [facility] Last Admin: 04/14/24 21:27 Dose: 40 mg Documented By: KIESHA Calcium Carbonate (Calcium Carbonate 750 Mg Tab.Chew) 750 mg PO Q4H PRN PRN Reason: Heartburn Docusate Sodium (Docusate Sodium 100 Mg Capsule) 100 mg PO BEDTIME [facility] Last Admin: 04/14/24 21:27 Dose: 100 mg Documented By: KIESHA Enoxaparin Sodium (Enoxaparin Sodium 40 Mg/0.4 Ml Syringe) 40 mg SUBCUT Q24H [facility] Last Admin: 04/14/24 21:39 Dose: Not Given Documented By: KIESHA Non-Admin Reason: Patient Refused Fluticasone Propionate (Fluticasone Propionate Nasal 16 Gm [place]) 2 spray NOSTRIL-B DAILY [facility] Last Admin: 04/15/24 09:23 Dose: 2 spray Documented By: JIM Glucose (Glucose Gel 15 Gm Gel..Gram.) 15 gm PO Q15M PRN; Protocol PRN Reason: per Hypoglycemia Standing Ord. Dextrose (D10) 250 mls @ 750 mls/hr IV Q15M PRN; Protocol PRN Reason: per Hypoglycemia Standing Ord. Lactated Ringer's (Lr) 1,000 mls @ 80 mls/hr IVCONT .[id number] [facility] Last Admin: 04/15/24 09:32 Dose: 80 mls/hr Documented By: JIM Piperacillin Sod/Tazobactam (Sod 3.375 gm/ Sodium Chloride) 50 mls @ 100 mls/hr IV Q8H [facility] Last Infusion: 04/15/24 06:55 Dose: Infused Documented By: KIESHA Insulin Glargine (Insulin Glargine,Hum.Rec.Anlog 100 Unit/Ml 10 Ml Vial) 48 unit SUBCUT DAILY [facility] Last Admin: 04/15/24 07:59 Dose: 48 unit Documented By: JIM Insulin Human Lispro (Insulin Lispro 100 Unit/Ml 3 Ml Vial) 0.1 - 10 unit SUBCUT QIDACHS [facility]; Protocol Last Admin: 04/15/24 08:34 Dose: Not Given Documented By: JIM Non-Admin Reason: No Insulin Coverage Losartan Potassium (Losartan Potassium 25 Mg Tablet) 25 mg PO DAILY [facility]; Protocol Last Admin: 04/15/24 07:58 Dose: 25 mg Documented By: JIM Magnesium Hydroxide (Milk Of Magnesia 30 Ml Oral.Susp) 30 ml PO DAILY PRN PRN Reason: Constipation Melatonin (Melatonin 3 Mg Tablet) 6 mg PO BEDTIME PRN PRN Reason: Insomnia Metoprolol Succinate (Metoprolol Succinate Er 50 Mg Tab.Er.24h) 50 mg PO DAILY [facility]; Protocol Last Admin: 04/15/24 08:35 Dose: Not Given Documented By: JIM Non-Admin Reason: held for HR 51 Mirtazapine (Mirtazapine 30 Mg Tablet) 30 mg PO BEDTIME [facility] Last Admin: 04/14/24 21:27 Dose: 30 mg Documented By: KIESHA Nitroglycerin (Nitroglycerin 0.4 Mg Tab.Subl) 0.4 mg SUBLINGUAL Q5MX3 PRN PRN Reason: Chest Pain Pt Own (Finerenone [ Kerendia] 10 Mg Tablet) 10 mg PO DAILY [facility] Last Admin: 04/15/24 07:56 Dose: 10 mg Documented By: JIM Omeprazole (Omeprazole 20 Mg Capsule.Dr) 20 mg PO DAILY@0630 [facility] Last Admin: 04/15/24 06:21 Dose: 20 mg Documented By: KIESHA Oxycodone HCl (Oxycodone Hcl Immed Release 5 Mg Tablet) 5 mg PO Q4H PRN PRN Reason: Pain, Severe (Pain Scale 7-10) Last Admin: 04/14/24 21:36 Dose: 5 mg Documented By: KIESHA Polyethylene Glycol (Polyethylene Glycol 3350 17 Gm Powd.Pack) 17 gm PO DAILY PRN PRN Reason: Constipation Last Admin: 04/15/24 09:35 Dose: 17 gm Documented By: JIM Pregabalin (Pregabalin 200 Mg Capsule) 200 mg PO BID [facility] Last Admin: 04/15/24 07:59 Dose: 200 mg Documented By: JIM Ranolazine (Ranolazine 500 Mg Tab.Er.12h) 1,000 mg PO BID [facility] Last Admin: 04/15/24 07:57 Dose: 1,000 mg Documented By: JIM Sodium Chloride (0.9 % Sodium Chloride Flush 3 Ml Syringe) 3 ml IVFLUSH QSHIFT [facility] Last Admin: 04/15/24 07:59 Dose: 3 ml Documented By: JIM Tamsulosin HCl (Tamsulosin Hcl 0.4 Mg Capsule) 0.4 mg PO BEDTIME [facility] Last Admin: 04/14/24 21:27 Dose: 0.4 mg Documented By: KIESHA Labs 04/15/24 09:01 04/15/24 09:01 Labs: Laboratory Results - last 24 hr 04/14/24 04/14/24 04/15/24 16:04 19:47 07:12 MCV MCH MCHC RDW Plt Count MPV Absolute Nucleated RBC Nucleated RBC % (auto) Anion Gap Estim Creat Clear Calc Estimated GFR POC Glucose 180 H 225 H 103 Random Glucose Calcium Total Bilirubin AST ALT Alkaline Phosphatase Total Protein Albumin Vitamin B12 Folate 04/15/24 09:01 MCV 92.0 MCH 30.0 MCHC 32.6 RDW 15.5 Plt Count 118 L MPV 10.3 Absolute Nucleated RBC 0.000 Nucleated RBC % (auto) 0.0 Anion Gap 11 L Estim Creat Clear Calc 65.3 Estimated GFR 47 POC Glucose Random Glucose 270 H Calcium 8.8 D Total Bilirubin 0.9 AST 8 ALT 12 Alkaline Phosphatase 87 Total Protein 5.5 L Albumin 3.5 Vitamin B12 265 Folate 9.2 Microbiology Microbiology Results: Microbiology 04/13/24 21:22 Blood Culture - Preliminary Blood - Venous No growth after 24 hours. 04/13/24 21:22 Blood Culture - Preliminary Blood - Venous No growth after 24 hours. 04/13/24 Unknown Urine Culture - Preliminary Urine Catheterized - Straight Catheter Culture in progress. Assessment and Plan (1) Leukocytosis: Status: Acute (2) Acute pyelonephritis: Status: Acute Plan 63 y/o man with past medical history of neurogenic bladder self cath admitted with: Acute pyelonephritis: leucocystosis improving-multifactorial: CLL, UTI and dehydration. Blood and urine culture obtained -will follow results. Continue empiric IV antibiotic therapy with Zosyn and IV fluids. rib cage pain may be reffered due to above -no cough or any other symptoms -will check cxr. id eval Type 2 diabetes mellitus. insulin COPD:stable continue albuterol. Essential hypertension. Continue metoprolol. gaurav onCKD stage 3A. Continue to monitor renal function. Avoid nephrotoxic agents. hold losartan, adjusted Lr@100 ml/hr History of CLL. Continue follow-up as an outpatient. Hyperlipidemia. Continue statin. GERD. Continue pantoprazole. Neurogenic bladder: prn self staright cath. Obesity, class II. BMI 30.1 kg/m2. Encouraged for Weight loss and cutdown calories. Ongoing need for hospitalization: Acute pyelonephritis-need IV antibiotics and clinical monitoring for any worsening, monitor renal function electrolytes. Quality Stroke Does the patient have a stroke diagnosis?: No VTE Prior VTE?: No VTE Risk Level:: Medical - moderate - high VTE Device Contraindication: Treatment Not Indicated VTE Drug Contraindication: N/A - Med Ordered
[2024-04-15 11:10] LABS: Glucose, Whole Blood 207 mg/dL (60-115)
--- NOTE | 2024-04-15 11:34 | PC.NURSE ---
Addendum entered by Edith Carrizales RN 04/15/24 16:29: Pt straight cathed self again for 500Ml, pt used good technique with this RN supervision. Original Note: Pt self caths at home per baseline. Pt straight cathing self at hospital every 4-6hrs, MD Horton aware. This RN assisted pt in bathroom at 11:30 for 900ml. Pt practiced good hand hygiene and technique.
[2024-04-15] MEDS: Insulin Lispro 100 UNIT/ML 3 ML VIAL SUBCUT ×2 (11:59→20:49)
--- NOTE | 2024-04-15 13:09 | P.CNID_ITS ---
History of Present Illness Data of Consult Service Date: 04/15/24 Requesting physician: Aimee Horton Primary Care Provider: Unknown Physician HPI Reason for consult: pyelonephritis He presents with RLQ on 04/13 for a day. He reports being prescribed Cipro he thinks one week ago for dysuria. He denies h/o nephrolithiasis. He has CT increased bladder size and prostatomegaly. He has neurogenic bladder and self caths. He has CLL as well. His WBC is 25.9 on admission and blood cultures negative and urine culture negative so far. Review of Systems 2 Review of Systems: Yes all other systems are reviewed and are negative PMFSH Past Medical History Medical History CLL (chronic lymphocytic leukemia) Frequent UTI Neurogenic bladder Coronary artery disease Diabetes Hyperlipidemia Hypertension Family History Family history: reviewed and not pertinent Social History Social History Household Members: Family Household Members Other:: patient lives with his sister and her son who is 27yrs old. Do you presently have visiting nurse or other home services: No Alcohol intake: current Alcohol intake frequency: holidays/special occasions only Patient Tobacco Use Status: Former Tobacco user Tobacco use type: Cigarette Second Hand Smoke Exposure: No Substance Use Type: Marijuana service: No Meds Allergies Allergy/AdvReac Type Severity Reaction Status Date / Time Sulfa (Sulfonamide Allergy Rash Verified 04/13/24 11:35 Antibiotics) ticagrelor [From Brilinta] Allergy Abdominal Verified 04/13/24 11:35 Pain Active Medications: Current Medications Acetaminophen (Acetaminophen 325 Mg Tablet) 975 mg PO TID [facility] Last Admin: 04/15/24 07:57 Dose: 975 mg Albuterol Sulfate (Albuterol Sulfate 90 Mcg 8 Gm Inhaler) 2 puff INHALE RQ6H PRN PRN Reason: wheezing Aspirin (Aspirin Enteric Coated 81 Mg Tablet.) 81 mg PO DAILY [facility] Last Admin: 04/15/24 07:59 Dose: 81 mg Atorvastatin Calcium (Atorvastatin Calcium 40 Mg Tablet) 40 mg PO BEDTIME [facility] Last Admin: 04/14/24 21:27 Dose: 40 mg Calcium Carbonate (Calcium Carbonate 750 Mg Tab.Chew) 750 mg PO Q4H PRN PRN Reason: Heartburn Docusate Sodium (Docusate Sodium 100 Mg Capsule) 100 mg PO BEDTIME [facility] Last Admin: 04/14/24 21:27 Dose: 100 mg Enoxaparin Sodium (Enoxaparin Sodium 40 Mg/0.4 Ml Syringe) 40 mg SUBCUT Q24H [facility] Last Admin: 04/14/24 21:39 Dose: Not Given Fluticasone Propionate (Fluticasone Propionate Nasal 16 Gm S[place]) 2 spray NOSTRIL-B DAILY [facility] Last Admin: 04/15/24 09:23 Dose: 2 spray Glucose (Glucose Gel 15 Gm Gel..Gram.) 15 gm PO Q15M PRN; Protocol PRN Reason: per Hypoglycemia Standing Ord. Dextrose (D10) 250 mls @ 750 mls/hr IV Q15M PRN; Protocol PRN Reason: per Hypoglycemia Standing Ord. Lactated Ringer's (Lr) 1,000 mls @ 100 mls/hr IVCONT .Q10H [facility] Last Infusion: 04/15/24 11:10 Dose: 100 mls/hr Piperacillin Sod/Tazobactam (Sod 3.375 gm/ Sodium Chloride) 50 mls @ 100 mls/hr IV Q8H [facility] Last Infusion: 04/15/24 06:55 Dose: Infused Insulin Glargine (Insulin Glargine,Hum.Rec.Anlog 100 Unit/Ml 10 Ml Vial) 48 unit SUBCUT DAILY [facility] Last Admin: 04/15/24 07:59 Dose: 48 unit Insulin Human Lispro (Insulin Lispro 100 Unit/Ml 3 Ml Vial) 0.1 - 10 unit SUBCUT QIDACHS [facility]; Protocol Last Admin: 04/15/24 11:59 Dose: 4 unit Magnesium Hydroxide (Milk Of Magnesia 30 Ml Oral.Susp) 30 ml PO DAILY PRN PRN Reason: Constipation Melatonin (Melatonin 3 Mg Tablet) 6 mg PO BEDTIME PRN PRN Reason: Insomnia Metoprolol Succinate (Metoprolol Succinate Er 50 Mg Tab.Er.24h) 50 mg PO DAILY [facility]; Protocol Last Admin: 04/15/24 08:35 Dose: Not Given Mirtazapine (Mirtazapine 30 Mg Tablet) 30 mg PO BEDTIME [facility] Last Admin: 04/14/24 21:27 Dose: 30 mg Nitroglycerin (Nitroglycerin 0.4 Mg Tab.Subl) 0.4 mg SUBLINGUAL Q5MX3 PRN PRN Reason: Chest Pain Pt Own (Finerenone [ Kerendia] 10 Mg Tablet) 10 mg PO DAILY [facility] Last Admin: 04/15/24 07:56 Dose: 10 mg Omeprazole (Omeprazole 20 Mg Capsule.Dr) 20 mg PO DAILY@0630 [facility] Last Admin: 04/15/24 06:21 Dose: 20 mg Oxycodone HCl (Oxycodone Hcl Immed Release 5 Mg Tablet) 5 mg PO Q4H PRN PRN Reason: Pain, Severe (Pain Scale 7-10) Last Admin: 04/14/24 21:36 Dose: 5 mg Polyethylene Glycol (Polyethylene Glycol 3350 17 Gm Powd.Pack) 17 gm PO DAILY PRN PRN Reason: Constipation Last Admin: 04/15/24 09:35 Dose: 17 gm Pregabalin (Pregabalin 200 Mg Capsule) 200 mg PO BID [facility] Last Admin: 04/15/24 07:59 Dose: 200 mg Ranolazine (Ranolazine 500 Mg Tab.Er.12h) 1,000 mg PO BID [facility] Last Admin: 04/15/24 07:57 Dose: 1,000 mg Sodium Chloride (0.9 % Sodium Chloride Flush 3 Ml Syringe) 3 ml IVFLUSH QSHIFT [facility] Last Admin: 04/15/24 07:59 Dose: 3 ml Tamsulosin HCl (Tamsulosin Hcl 0.4 Mg Capsule) 0.4 mg PO BEDTIME [facility] Last Admin: 04/14/24 21:27 Dose: 0.4 mg Home Medications ?Medication ?Instructions ?Recorded ?Confirmed ?Last Taken ?Type albuterol sulfate 90 mcg/actuation 2 puff inhalation Q6H PRN wheezing 04/14/24 04/14/24 Unknown History aerosol inhaler (Ventolin HFA) aspirin 81 mg tablet,delayed 81 mg PO DAILY 04/14/24 04/14/24 04/13/24 History release atorvastatin 40 mg tablet 40 mg PO BEDTIME 04/14/24 04/14/24 04/12/24 History finerenone 10 mg tablet (Kerendia) 10 mg PO DAILY 04/14/24 04/14/24 04/13/24 History fluticasone propionate 50 2 spray intranasal DAILY 04/14/24 04/14/24 04/13/24 History mcg/actuation nasal spray,suspension glucagon 3 mg/actuation nasal 3 mg intranasal DAILY PRN 04/14/24 04/14/24 04/13/24 History spray (Baqsimi) Hypoglycemia glucose 4 gram chewable tablet 16 g PO TID PRN diabetes mellitus 04/14/24 04/14/24 Unknown History insulin glargine 100 unit/mL (3 48 unit subcut DAILY@0730 04/14/24 04/14/24 04/13/24 History mL) subcutaneous pen (Lantus Solostar U-100 Insulin) insulin lispro 100 unit/mL 12 - 14 unit subcut BID-TID 04/14/24 04/14/24 04/12/24 History subcutaneous pen losartan 25 mg tablet 25 mg PO DAILY 04/14/24 04/14/24 04/13/24 History metoprolol succinate 50 mg 50 mg PO DAILY 04/14/24 04/14/24 04/13/24 History tablet,extended release 24 hr mirtazapine 30 mg tablet 30 mg PO BEDTIME 04/14/24 04/14/24 04/12/24 History nitroglycerin 0.4 mg sublingual 0.4 mg sublingual USEASDIRECTD PRN 04/14/24 04/14/24 Unknown History tablet Chest Pain pantoprazole 40 mg tablet,delayed 40 mg PO DAILY@0630 04/14/24 04/14/24 04/13/24 History release pregabalin 200 mg capsule 200 mg PO BID neuropathy 04/14/24 04/14/24 04/13/24 History ranolazine 1,000 mg 1,000 mg PO BID 04/14/24 04/14/24 04/13/24 History tablet,extended release,12 hr Physical Exam 2 Vital Signs: Vital Signs: Last Vital Signs Temp 97.1 F 04/15/24 07:52 Pulse 51 04/15/24 12:43 Resp 18 04/15/24 07:52 BP 113/62 04/15/24 12:43 Pulse Ox 97 04/15/24 12:43 O2 Del Method Room Air 04/15/24 07:24 O2 Flow Rate 2 04/14/24 06:48 BMI result Body Mass Index 36.9 Const: General: cooperative HEENT: Head: Yes normal to inspection Face and sinus: Yes normal facial exam Mouth: Normal oral and palatal mucosa present Teeth and gingiva: d entition normal Eyes: General: appearance normal, both eyes and all related structures P upils: Equal, round and reactive pupils present Resp: Effort & Inspection: normal respiratory effort Cardio: Rate: regular rate Rhythm: regular rhythm GI: Palpation (GI): Soft to palpation and nontender : General: Yes no CVA tenderness Back/Spine/Pelvis: Back: no CVA tenderness Skin: General skin exam: no rashes or lesions noted Neuro: General: moves all extremities Cranial nerves: Yes Equal, round and reactive pupils present Extrem: General: Yes normal to inspection Psych: Appearance: grossly normal Results Labs 04/15/24 09:01 04/15/24 09:01 Labs: Short CBC 04/15/24 Range/Units 09:01 WBC 16.7 H (4.8-10.8) X10*3/uL Hgb 14.7 (14.0-18.0) g/dl Hct 45.1 (42.0-52.0) % Plt Count 118 L (160-400) X10*3/uL BMP 04/15/24 09:01 Sodium 139 Potassium 4.5 Chloride 105 Carbon Dioxide 28 BUN 24 H Creatinine 1.52 H Calcium 8.8 D Liver Function 04/15/24 Range/Units 09:01 Total Bilirubin 0.9 (0.0-1.0) mg/dL AST 8 (5-37) U/L ALT 12 (0-40) U/L Alkaline Phosphatase 87 (39-117) U/L Albumin 3.5 (3.5-5.0) g/dL Microbiology Microbiology Results: Microbiology 04/13/24 21:22 Blood - Venous Blood Culture - Preliminary No growth after 24 hours. 04/13/24 21:22 Blood - Venous Blood Culture - Preliminary No growth after 24 hours. 04/13/24 Unknown Urine Catheterized - Straight Catheter Urine Culture - Preliminary Culture in progress. Assessment and Plan (1) Leukocytosis: Status: Acute (2) Acute pyelonephritis: Status: Acute Plan He has possible resistant pyelonephritis with possible gram negative MDRO. He feels improved on piperacilin/tazobactam but still no positive cultures. Would continue piperacillin/tazobactam for now. Would await cultures. Possible po Augmentin for 14 d as outpatient.
[2024-04-15 15:49] LABS: Glucose, Whole Blood 150 mg/dL (60-115)
--- NOTE | 2024-04-15 18:08 | PC.NURSE ---
Right foot second toe, EMILY. Pt has Hx DM2, wound care nurse consulted.
[2024-04-15] MEDS: Lactated Ringers 1,000 ML 100 ML IVCONT (19:49)
[2024-04-15 20:04] LABS: Glucose, Whole Blood 330 mg/dL (60-115)
[2024-04-15] MEDS: Mirtazapine 30 MG TABLET PO (20:49)
[2024-04-15] MEDS: Atorvastatin Calcium 40 MG TABLET PO (20:50)
[2024-04-15] MEDS: Tamsulosin HCL 0.4 MG CAPSULE PO (20:50)
[2024-04-15] MEDS: oxyCODONE HCl Immed Release 5 MG TABLET PO (20:50)
[2024-04-15] MEDS: Docusate Sodium 100 MG CAPSULE PO (20:50)
[2024-04-16 03:52] VITALS: BP 123/69; PULSE 50; RESP 16; TEMP 36.1; O2SAT 98
[2024-04-16] MEDS: Omeprazole 20 MG CAPSULE.DR PO (05:58)
[2024-04-16] MEDS: Piperacillin Sodium/Tazobactam 3.375 GM in 0.9 % Sodium Chloride 50 ML IV ×3 (06:00→21:28)
[2024-04-16 07:13] VITALS: BP 119/65; PULSE 62; RESP 20; TEMP 36.1; O2SAT 95
[2024-04-16 07:25] LABS: Glucose, Whole Blood 112 mg/dL (60-115)
[2024-04-16] MEDS: Ranolazine 500 MG TAB.ER.12H 1000 MG PO ×2 (08:47→21:27)
[2024-04-16] MEDS: Metoprolol Succinate ER 50 MG TAB.ER.24H PO (08:47)
[2024-04-16] MEDS: Pregabalin 200 MG CAPSULE PO ×2 (08:48→21:28)
[2024-04-16] MEDS: Aspirin Enteric Coated 81 MG TABLET.DR PO (08:48)
[2024-04-16] MEDS: Insulin Glargine,Hum.rec.anlog 100 UNIT/ML 10 ML VIAL 48 UNIT SUBCUT (08:48)
[2024-04-16] MEDS: FINERENONE 10 MG 10 EACH PO (08:48)
[2024-04-16] MEDS: 0.9 % Sodium Chloride Flush 3 ML SYRINGE IVFLUSH ×3 (08:49→21:33)
[2024-04-16] MEDS: Fluticasone Propionate Nasal 16 GM SPRAY 2 SPRAY NOSTRIL-B (08:49)
[2024-04-16] MEDS: Fluticasone/Vilanterol 200/25 BLST.W.DEV 1 PUFF INHALE (09:34)
[2024-04-16 09:35] VITALS: PULSE 62; RESP 20; O2SAT 97
--- NOTE | 2024-04-16 10:20 | HO.PM.IMPN ---
Subjective Subjective Date of Service: 04/16/24 Interval History: pyelonephritis Review of Systems urinary symptoms improving no fever still generalised weak Physical Exam Vital Signs: Vital Signs: Last Vital Signs Temp 97.0 F 04/16/24 07:13 Pulse 62 04/16/24 09:35 Resp 20 04/16/24 09:35 BP 119/65 04/16/24 07:13 Pulse Ox 95 04/16/24 07:13 O2 Del Method Room Air 04/16/24 07:13 O2 Flow Rate 2 04/14/24 06:48 BMI result Body Mass Index 36.9 Appearance: Alert.? Oriented X3,?generalised weak cvs: rrr, [id number] . res: air entry seems fair , no rales or wheezing has some right sided rib cage discomfort abd: no rebound or guarding ,nt, bs present. ext pulses present , no cyanosis . neuro: axo3 , nonfocal. Objective Data Active Medications Acetaminophen (Acetaminophen 325 Mg Tablet) 975 mg PO TID [facility] Last Admin: 04/16/24 08:54 Dose: Not Given Documented By: JIM Non-Admin Reason: Patient Refused Albuterol Sulfate (Albuterol Sulfate 90 Mcg 8 Gm Inhaler) 2 puff INHALE RQ6H PRN PRN Reason: wheezing Aspirin (Aspirin Enteric Coated 81 Mg Tablet.) 81 mg PO DAILY [facility] Last Admin: 04/16/24 08:48 Dose: 81 mg Documented By: JIM Atorvastatin Calcium (Atorvastatin Calcium 40 Mg Tablet) 40 mg PO BEDTIME [facility] Last Admin: 04/15/24 20:50 Dose: 40 mg Documented By: KIESHA Calcium Carbonate (Calcium Carbonate 750 Mg Tab.Chew) 750 mg PO Q4H PRN PRN Reason: Heartburn Docusate Sodium (Docusate Sodium 100 Mg Capsule) 100 mg PO BEDTIME [facility] Last Admin: 04/15/24 20:50 Dose: 100 mg Documented By: KIESHA Enoxaparin Sodium (Enoxaparin Sodium 40 Mg/0.4 Ml Syringe) 40 mg SUBCUT Q24H [facility] Last Admin: 04/15/24 21:01 Dose: Not Given Documented By: KIESHA Non-Admin Reason: Patient Refused Comments: pt refused d/t allergy Fluticasone Propionate (Fluticasone Propionate Nasal 16 Gm [place]) 2 spray NOSTRIL-B DAILY [facility] Last Admin: 04/16/24 08:49 Dose: 2 spray Documented By: JIM Fluticasone/Vilanterol (Fluticasone/Vilanterol 200/25 Blst.W.Dev) 1 puff INHALE RDAILY [facility] Last Admin: 04/16/24 09:34 Dose: 1 puff Documented By: GUIDO Glucose (Glucose Gel 15 Gm Gel..Gram.) 15 gm PO Q15M PRN; Protocol PRN Reason: per Hypoglycemia Standing Ord. Guaifenesin (Guaifenesin 200 Mg/10 Ml 10 Ml Liquid) 10 ml PO Q4H PRN PRN Reason: Cough Dextrose (D10) 250 mls @ 750 mls/hr IV Q15M PRN; Protocol PRN Reason: per Hypoglycemia Standing Ord. Piperacillin Sod/Tazobactam (Sod 3.375 gm/ Sodium Chloride) 50 mls @ 100 mls/hr IV Q8H [facility] Last Infusion: 04/16/24 06:59 Dose: Infused Documented By: JIM Insulin Glargine (Insulin Glargine,Hum.Rec.Anlog 100 Unit/Ml 10 Ml Vial) 48 unit SUBCUT DAILY [facility] Last Admin: 04/16/24 08:48 Dose: 48 unit Documented By: JIM Insulin Human Lispro (Insulin Lispro 100 Unit/Ml 3 Ml Vial) 0.1 - 10 unit SUBCUT QIDACHS [facility]; Protocol Last Admin: 04/16/24 08:39 Dose: Not Given Documented By: JIM Non-Admin Reason: No Insulin Coverage Magnesium Hydroxide (Milk Of Magnesia 30 Ml Oral.Susp) 30 ml PO DAILY PRN PRN Reason: Constipation Melatonin (Melatonin 3 Mg Tablet) 6 mg PO BEDTIME PRN PRN Reason: Insomnia Metoprolol Succinate (Metoprolol Succinate Er 50 Mg Tab.Er.24h) 50 mg PO DAILY [facility]; Protocol Last Admin: 04/16/24 08:47 Dose: 50 mg Documented By: JIM Mirtazapine (Mirtazapine 30 Mg Tablet) 30 mg PO BEDTIME [facility] Last Admin: 04/15/24 20:49 Dose: 30 mg Documented By: KIESHA Nitroglycerin (Nitroglycerin 0.4 Mg Tab.Subl) 0.4 mg SUBLINGUAL Q5MX3 PRN PRN Reason: Chest Pain Pt Own (Finerenone [ Kerendia] 10 Mg Tablet) 10 mg PO DAILY [facility] Last Admin: 04/16/24 08:48 Dose: 10 mg Documented By: JIM Omeprazole (Omeprazole 20 Mg Capsule.Dr) 20 mg PO DAILY@0630 [facility] Last Admin: 04/16/24 05:58 Dose: 20 mg Documented By: KIESHA Oxycodone HCl (Oxycodone Hcl Immed Release 5 Mg Tablet) 5 mg PO Q4H PRN PRN Reason: Pain, Severe (Pain Scale 7-10) Last Admin: 04/15/24 20:50 Dose: 5 mg Documented By: KIESHA Polyethylene Glycol (Polyethylene Glycol 3350 17 Gm Powd.Pack) 17 gm PO DAILY PRN PRN Reason: Constipation Last Admin: 04/15/24 09:35 Dose: 17 gm Documented By: JIM Pregabalin (Pregabalin 200 Mg Capsule) 200 mg PO BID [facility] Last Admin: 04/16/24 08:48 Dose: 200 mg Documented By: JIM Ranolazine (Ranolazine 500 Mg Tab.Er.12h) 1,000 mg PO BID [facility] Last Admin: 04/16/24 08:47 Dose: 1,000 mg Documented By: JIM Sodium Chloride (0.9 % Sodium Chloride Flush 3 Ml Syringe) 3 ml IVFLUSH QSHIFT [facility] Last Admin: 04/16/24 08:49 Dose: 3 ml Documented By: JIM Tamsulosin HCl (Tamsulosin Hcl 0.4 Mg Capsule) 0.4 mg PO BEDTIME [facility] Last Admin: 04/15/24 20:50 Dose: 0.4 mg Documented By: KIESHA Labs 04/15/24 09:01 04/15/24 09:01 Labs: Laboratory Results - last 24 hr 04/15/24 04/15/24 04/15/24 09:01 11:03 15:46 POC Glucose 207 H 150 H Vitamin B12 265 Folate 9.2 04/15/24 04/16/24 19:59 07:21 POC Glucose 330 H 112 Vitamin B12 Folate Microbiology Microbiology Results: Microbiology 10/03/24 Unknown Urine Culture - Final Urine Catheterized - Straight Catheter Liss albicans 04/13/24 21:22 Blood Culture - Preliminary Blood - Venous No growth after 48 hours. 04/13/24 21:22 Blood Culture - Preliminary Blood - Venous No growth after 48 hours. Assessment and Plan (1) Leukocytosis: Status: Acute (2) Acute pyelonephritis: Status: Acute Plan 63 y/o man with past medical history of neurogenic bladder self cath admitted with: Acute pyelonephritis: leucocystosis improving-multifactorial: CLL, UTI and dehydration. Blood and urine culture obtained -will follow results. rib cage pain improving, cxr - possible right lower lobe atelactasis vs aspiration pneumonitis. Continue empiric IV antibiotic therapy with Zosyn and IV fluids. Type 2 diabetes mellitus. insulin COPD:stable continue albuterol. Essential hypertension. Continue metoprolol. gaurav onCKD stage 3A. Continue to monitor renal function. Avoid nephrotoxic agents. hold losartan, adjusted Lr@100 ml/hr History of CLL. Continue follow-up as an outpatient. Hyperlipidemia. Continue statin. GERD. Continue pantoprazole. Neurogenic bladder: prn self staright cath. Obesity, class II. BMI 30.1 kg/m2. Encouraged for Weight loss and cutdown calories. Ongoing need for hospitalization: Acute pyelonephritis-need IV antibiotics and clinical monitoring for any worsening, monitor renal function electrolytes. Quality Stroke Does the patient have a stroke diagnosis?: No VTE Prior VTE?: No VTE Risk Level:: Medical - moderate - high VTE Device Contraindication: Treatment Not Indicated VTE Drug Contraindication: N/A - Med Ordered
[2024-04-16 11:10] LABS: Anion Gap 13 (12-20); Blood Urea Nitrogen 26 mg/dL (9-16); Calcium 8.8 mg/dL (8.4-10.2); Carbon Dioxide 26 mmol/L (22-29); Chloride 106 mmol/L (96-108); Creatinine Clr Calc Pharmacy 66.6; Estimated Glomerular Filt Rate 48; Glucose Random 258 mg/dL (60-115); Potassium 4.2 mmol/L (3.3-5.1); Sodium 141 mmol/L (135-145)
[2024-04-16 11:28] LABS: Glucose, Whole Blood 179 mg/dL (60-115)
[2024-04-16] MEDS: Insulin Lispro 100 UNIT/ML 3 ML VIAL SUBCUT ×3 (11:55→21:28)
[2024-04-16 15:37] VITALS: BP 123/69; PULSE 53; RESP 18; TEMP 36.6; O2SAT 96
[2024-04-16 16:04] LABS: Glucose, Whole Blood 212 mg/dL (60-115)
[2024-04-16] MEDS: Acetaminophen 325 MG TABLET 975 MG PO ×2 (17:01→21:27)
[2024-04-16 20:00] VITALS: BP 124/65; PULSE 57; RESP 17; TEMP 36.4; O2SAT 94
[2024-04-16 20:53] LABS: Glucose, Whole Blood 274 mg/dL (60-115)
[2024-04-16] MEDS: Tamsulosin HCL 0.4 MG CAPSULE PO (21:27)
[2024-04-16] MEDS: Mirtazapine 30 MG TABLET PO (21:27)
[2024-04-16] MEDS: Docusate Sodium 100 MG CAPSULE PO (21:28)
[2024-04-16] MEDS: Atorvastatin Calcium 40 MG TABLET PO (21:28)
[2024-04-16 22:32] VITALS: PULSE 55; RESP 24; O2SAT 94
[2024-04-17 04:00] VITALS: BP 111/68; PULSE 50; RESP 18; TEMP 36; O2SAT 97
[2024-04-17] MEDS: Piperacillin Sodium/Tazobactam 3.375 GM in 0.9 % Sodium Chloride 50 ML IV (05:18)
[2024-04-17] MEDS: Omeprazole 20 MG CAPSULE.DR PO (05:51)
[2024-04-17] MEDS: Fluticasone/Vilanterol 200/25 BLST.W.DEV 1 PUFF INHALE (07:45)
[2024-04-17 07:46] VITALS: PULSE 50; RESP 18; O2SAT 96
[2024-04-17 07:47] LABS: Glucose, Whole Blood 96 mg/dL (60-115)
[2024-04-17 08:00] VITALS: BP 109/62; PULSE 54; RESP 14; TEMP 36.6; O2SAT 96
[2024-04-17] MEDS: Aspirin Enteric Coated 81 MG TABLET.DR PO (08:53)
[2024-04-17] MEDS: Pregabalin 200 MG CAPSULE PO (08:53)
[2024-04-17] MEDS: Acetaminophen 325 MG TABLET 975 MG PO (08:53)
[2024-04-17] MEDS: FINERENONE 10 MG 10 EACH PO (08:54)
[2024-04-17] MEDS: Ranolazine 500 MG TAB.ER.12H 1000 MG PO (08:54)
[2024-04-17] MEDS: Insulin Glargine,Hum.rec.anlog 100 UNIT/ML 10 ML VIAL 48 UNIT SUBCUT (08:56)
[2024-04-17] MEDS: Fluticasone Propionate Nasal 16 GM SPRAY 2 SPRAY NOSTRIL-B (09:01)
[2024-04-17 09:02] LABS: Anion Gap 6 (12-20); Blood Urea Nitrogen 22 mg/dL (9-16); Calcium 8.8 mg/dL (8.4-10.2); Carbon Dioxide 32 mmol/L (22-29); Chloride 110 mmol/L (96-108); Creatinine Clr Calc Pharmacy 69.4; Estimated Glomerular Filt Rate 50; Glucose Random 125 mg/dL (60-115); Potassium 4.3 mmol/L (3.3-5.1); Sodium 144 mmol/L (135-145)
[2024-04-17] MEDS: 0.9 % Sodium Chloride Flush 3 ML SYRINGE IVFLUSH (09:02)
[2024-04-17 09:03] VITALS: BP 107/55; PULSE 56; RESP 16; O2SAT 96
[2024-04-17 09:47] VITALS: PULSE 61
[2024-04-17] MEDS: Metoprolol Succinate ER 50 MG TAB.ER.24H PO (09:47)
--- NOTE | 2024-04-17 10:44 | PM.DS ---
DS: Providers Provider Date of Service: 04/17/24 Date of admission: 04/13/24 23:01 Date of discharge: 04/17/24 Primary care physician: Unknown Physician Consults: 04/15/24 11:15 Consult to Infectious Diseases Routine Consulting Provider: [facility] Reason for consultation: pyelonephritis Has provider been notified: No 04/15/24 18:12 Consult to Wound Care Routine Reason for consultation: right foot 2nd toe small ulcer Attending physician on discharge: Aimee Horton Discharging clinician: Aimee Horton DS: Diagnosis Discharge Diagnosis (1) Leukocytosis: Status: Acute (2) Acute pyelonephritis: Status: Acute DS: Summary Hospital Course Hospital Course: HPI:63 y/o man with past medical history of neurogenic bladder self catheterizations, type 2 diabetes mellitus on insulin, CKD, CLL, COPD and hypertension presents to the emergency department complaining of right lower quadrant pain that has been getting worse over the last several days. He denied associated nausea, vomiting, fevers or chills. He denied bloody years. He did not report any headache, dizziness or palpitations. Did not report any acute cardiopulmonary symptoms. He is a former tobacco smoker. Denied tobacco smoking or illicit drug use. In the ED, he was found to have normal vital signs. Blood workup significant for leukocytosis of 25.9. There is no lactic acidosis. Creatinine is 1.44 and BUN 28. Urinalysis is consistent with urinary tract infection. Abdominal pelvis CT scan showed no acute intra-abdominal process. ED tx: Zosyn 3.375 mg IV, morphine 4 mg IV, Zofran 4 mg IV. hospital course: 63 y/o man with past medical history CLL of neurogenic bladder self cath admitted with:came with right flank/lower quadrent pain ,ua-pyuria ,has leucocytosis , lactic acid normal ,blood cultures and urine cultures sent ,ct abd No acute intra-abdominal process seen, Mild prostate enlargement and constipation, also has gaurav on possible ckd 3 -patient was started on iv antibiotics(zosyn) ,fluids as well as losartan placed on hold due to gaurav, also give cough medication,albuterol and incentive spriometry . also given luxative for constipation. blood culture neg , urine culture -priti ( seems colonization d/w ID) patient seems improved with above supportive care .seen by ID- patient will be going home with po augmentin 13 days and luxative prn for constipation gaurav improivng with hydration cr around 1.4 , losartan stopped , bp stable -patient encouraged for po intake and hydration-repeat bmp in 1 week outpatient ,flomax 0.4 mg at bedtime(has mild prostate enlargement). morbid obesity- Encouraged for Weight loss and cutdown calories. plan: complete augmentin 875 mg po bid for 13 days flomax 0.4 mg at bedtime . losartan stopped. repeat bmp outpatient in 1 week. continue incentive spriometry outaptient and ambulation. repeat cxr in 1 month to see resolution of atelactasis. follow up bmp outpatient-consider outpatient urology and nephrology outpatient. Time Attestation Total time managing care of this patient today: 40 mintues. Discharge Coordination Time (in mins): 40 min Quality: Safe Use of Opioids Does Pt have an Active Cancer Diagnosis on the Problem List?: No Quality: Stroke Does the patient have a stroke diagnosis?: No Physical Exam Vital Signs: Vital Signs: Last Vital Signs Temp 98 F 04/17/24 08:00 Pulse 61 04/17/24 09:47 Resp 16 04/17/24 09:03 BP 107/55 L 04/17/24 09:03 Pulse Ox 96 04/17/24 09:03 O2 Del Method Room Air 04/17/24 09:03 O2 Flow Rate 2 04/14/24 06:48 BMI result Body Mass Index 36.9 Appearance: Alert.? Oriented X3,?generalised weak cvs: rrr, [id number] . res: air entry seems fair , no rales or wheezing has some right sided rib cage discomfort seems improving abd: no rebound or guarding ,nt, bs present. ext pulses present , no cyanosis . neuro: axo3 , nonfocal. DS: Data Data Completed and Pending Labs on day of discharge: Laboratory Results - last 24 hr 04/16/24 04/16/24 04/16/24 09:31 11:24 16:00 Sodium 141 Potassium 4.2 Chloride 106 Carbon Dioxide 26 Anion Gap 13 BUN 26 H Creatinine 1.49 H Estim Creat Clear Calc 66.6 Estimated GFR 48 POC Glucose 179 H 212 H Random Glucose 258 H Calcium 8.8 04/16/24 04/17/24 04/17/24 20:44 07:27 08:17 Sodium 144 Potassium 4.3 Chloride 110 H Carbon Dioxide 32 H Anion Gap 6 L BUN 22 H Creatinine 1.43 H Estim Creat Clear Calc 69.4 Estimated GFR 50 POC Glucose 274 H 96 Random Glucose 125 H Calcium 8.8 Preliminary micro results at discharge 04/13/24 21:22 Blood Culture - Preliminary Blood - Venous No growth after 48 hours. 04/13/24 21:22 Blood Culture - Preliminary Blood - Venous No growth after 48 hours. Imaging Chest x-ray: Radiologist's impression: ITS Impressions Abdomen/Pelvis CT 04/13/24 22:20 IMPRESSION: 1. No acute intra-abdominal process seen. 2. Mild hepatomegaly. 3. Mild constipation. 4. Mild posterior bladder wall thickening with bladder enlargement. 5. Mild prostate enlargement. Fleischner guidelines were followed. Electronically signed by: Braulio Pierre MD 04/13/2024 10:36 PM EDT RP Chest X-Ray 04/15/24 08:40 IMPRESSION: 1. Widening of the right acromioclavicular joint. 2. Streaky opacity at the right base. Electronically signed by: Juan Jose Harris MD 04/15/2024 10:47 AM EDT RP Discharge Plan Discharge Anticipated Discharge Date/Time: 04/17/24 10:16 Patient Disposition: Home Health Service Discharge Diagnosis: gaurav on ckd ,uti ,possible atelactasis Referrals: Cameron MUNOZ [Outside] - 3-5 Days Physician,Unknown J [Physician] - 1 Week Discharge Medications: New acetaminophen 325 mg Tablet 975 mg PO TID Qty: 10 0RF polyethylene glycol 3350 17 gram Powder In Packet 17 g PO DAILY PRN (Reason: Constipation) Qty: 30 0RF tamsulosin 0.4 mg Capsule 0.4 mg PO BEDTIME Qty: 30 0RF docusate sodium 100 mg Capsule 100 mg PO BEDTIME Qty: 30 0RF amoxicillin-pot clavulanate 875-125 mg tablet 1 tab PO BID Qty: 25 0RF Robitussin Cough-Sore Throat 325-10 mg/10 mL liquid 20 ml PO Q4H PRN (Reason: cough) Qty: 118 0RF lidocaine 4 % adhesive patch,medicated 1 patch topical DAILY PRN (Reason: pain (scale score 4-6)) Qty: 10 0RF (DME) zuly [facility] [place] See Rx Instructions .ROUTE .MEDSUPPLY Qty: 1 0RF Rx Instructions: As directed Continued atorvastatin 40 mg tablet 40 mg PO BEDTIME metoprolol succinate 50 mg tablet extended release 24 hr 50 mg PO DAILY aspirin 81 mg tablet,delayed release (DR/EC) 81 mg PO DAILY pantoprazole 40 mg tablet,delayed release (DR/EC) 40 mg PO DAILY@0630 mirtazapine 30 mg tablet 30 mg PO BEDTIME glucose 4 gram tablet,chewable 16 g PO TID PRN (Reason: diabetes mellitus) Rx Instructions: if blood sugar is 70 or lower fluticasone propionate 50 mcg/actuation spray,suspension 2 spray intranasal DAILY Rx Instructions: 2 sprays each nostril pregabalin 200 mg capsule 200 mg PO BID ranolazine 1,000 mg tablet extended release 12 hr 1,000 mg PO BID Baqsimi 3 mg/actuation spray,non-aerosol 3 mg intranasal DAILY PRN (Reason: Hypoglycemia) Kerendia 10 mg tablet 10 mg PO DAILY nitroglycerin 0.4 mg tablet, sublingual 0.4 mg sublingual USEASDIRECTD PRN (Reason: Chest Pain) albuterol sulfate [Ventolin HFA] 90 mcg/actuation HFA aerosol inhaler 2 puff inhalation Q6H PRN (Reason: wheezing) insulin glargine [Lantus Solostar U-100 Insulin] 100 unit/mL (3 mL) insulin pen 48 unit subcut DAILY@0730 insulin lispro 100 unit/mL insulin pen 12 - 14 unit subcut BID-TID Discontinued losartan 25 mg tablet 25 mg PO DAILY Discharge Orders: Discharge Order (Routine); Ordered 04/17/24 Ordered By: Aimee Horton Diet: Advance to usual diet Activity on Discharge: As tolerated Stand Alone Forms: Patient Portal Discharge page Print Language: Sinhala Care Plan Goals: 63 y/o man with past medical history CLL of neurogenic bladder self cath admitted with:came with right flank/lower quadrent pain ,ua-pyuria ,has leucocytosis , lactic acid normal ,blood cultures and urine cultures sent ,ct abd No acute intra-abdominal process seen, Mild prostate enlargement and constipation, also has gaurav on possible ckd 3 -patient was started on iv antibiotics(zosyn) ,fluids as well as losartan placed on hold due to gaurav, also give cough medication,albuterol and incentive spriometry . also given luxative for constipation. blood culture neg , urine culture -priti ( seems contaminant) patient seems improved with above supportive care .seen by ID- patient will be going home with po augmentin 13 days and luxative prn for constipation gaurav improivng with hydration cr around 1.4 , losartan stopped , bp stable -patient encouraged for po intake and hydration-repeat bmp in 1 week outpatient ,flomax 0.4 mg at bedtime(has mild prostate enlargement). morbid obesity- Encouraged for Weight loss and cutdown calories. Health Concerns: complete augmentin 875 mg po bid for 13 days flomax 0.4 mg at bedtime . losartan stopped. repeat bmp outpatient in 1 week. walker prescription given since generalsied weak-see by pt-rec home pt and walker. continue incentive spriometry outaptient and ambulation. repeat cxr in 1 month to see resolution of atelactasis. follow up bmp outpatient-consider outpatient urology and nephrology outpatient. Plan of Treatment: as above. Assessment: as above. Patient Instructions: Acute Kidney Injury (DC), Kidney Infection (DC), Atelectasis (DC) Discharge Date/Time: 04/17/24 11:44
--- NOTE | 2024-04-17 10:50 | P.F2F_ITS ---
Service Date Service Date: 04/17/24 Encounter Date of encounter: 04/17/24 Encounter: gaurav,uti Reasons for Services Signs and symptoms assessed: fever or abd pain or urinary c/o. Reason for prison: CV/CP assess and/or care, medication management, medication treatment and teach disease management Homebound: Leaving the home is medically contraindicated at this time without the asist of a device and/or another person due th the listed conditions above and below. Reason homebound: weakness related to hospital stay Homebound supporting statement: patient is generalised weak post hospitlisation and need help with going to appointments and labs draws as well as PT. Certification: Based on the above findings, I certify that this patient is confined to the home and needs intermittent prison care, physical therapy and/or speech therapy, or continues to need occupational therapy. The patient is under my care, and I have initiated the establishment of the plan of care. The patient will be followed by a physician who will periodically review the plan of care. Time Spent With Patient Time: Total time managing care of this patient today ____ minutes.
--- NOTE | 2024-04-17 10:53 | MHC.CM.PN ---
Per MD rounds patient medically cleared for dc home w/ new [facility] services. [facility] made aware of dc. Patient's car is in [facility] lot. He prefers to self transport home if appropriate. RN aware. Requested rx for walker. aware.
--- NOTE | 2024-04-17 10:57 | P.F2F_ITS ---
Service Date Service Date: 04/17/24 Encounter Date of encounter: 04/17/24 Encounter: gaurav,uti Reasons for Services Signs and symptoms assessed: fever or abd pain or urinary c/o. Reason for physical therapy: home safety and mobility, therapeutic exercises, restore joint function, gait/transfer training, assess need for DME, ADL t raining, energy conservation and other Homebound: Leaving the home is medically contraindicated at this time without the asist of a device and/or another person due th the listed conditions above and below. Reason homebound: weakness related to hospital stay Homebound supporting statement: patient is generalised weak post hospitlisation and need help with going to appointments and labs draws as well as PT. Certification: Based on the above findings, I certify that this patient is confined to the home and needs intermittent long-term care, physical therapy and/or speech therapy, or continues to need occupational therapy. The patient is under my care, and I have initiated the establishment of the plan of care. The patient will be followed by a physician who will periodically review the plan of care. Time Spent With Patient Time: Total time managing care of this patient today ____ minutes.
--- NOTE | 2024-04-17 11:55 | HO.WOUND ---
Wound Consult: Initial 63yr old? male admitted to [facility] [place] [place] on 04/15/24 - See progress notes and H&P for detailed history.? Wound consult placed for Right 2nd toe wound.? Patient agreeable to assessment and photo documentation.? Patient reports he injured his tow several months ago. There is a stable dry scab noted - no oozing noted - no s/s of infection. Patient reports he has initial Podiatry appointment in May - he understands importance of keeping appointment. No topical intervention is needed at this time. The patient should keep the site dry and clean. May apply betadine every few days to ensure stable scab. Patient instructed to not attempt to cut his own nail on that toe until he discusses with podiatry since the toe nail is thickened and has split in the past with nail trimming.
[2024-04-17 12:11] VITALS: PULSE 61
--- NOTE | 2024-04-18 15:46 | MHC.CM.PN ---
Post d/c this CM was informed by [facility] that they cannot accept the patient d/t not being contracted w/ insurance. CM Director made aware. CM reached out to patient's insurance for list of contracted agencies and referrals expanded in [facility]. No accepting agency. Per CM director, called patient to update and advise f/u w/ PCP. No answer, LM w/ this information and requested call back.
== END 2024-04-17 11:44 | disposition home health service (06) | DRG 463 ==
LOC: HO.ED 23:04 → HO.EDOVER 23:09 → HO.S3 04-14 01:03
PROVIDERS: Physician Assistant; Admitting Provider Internal Medicine; Emergency Provider Emergency Medicine; Visit Provider Internal Medicine
DX: N10 Acute pyelonephritis (principal); N17.9 Acute kidney failure, unspecified; E11.22 Type 2 diabetes mellitus with diabetic chronic kidney disease; N40.0 Benign prostatic hyperplasia without lower urinary tract symptoms; J44.9 Chronic obstructive pulmonary disease, unspecified; N18.31 Chronic kidney disease, stage 3a; E78.5 Hyperlipidemia, unspecified; E86.0 Dehydration; I12.9 Hypertensive chronic kidney disease with stage 1 through stage 4 chronic kidney disease, or unspecified chronic kidney disease; E66.01 Morbid (severe) obesity due to excess calories; J98.11 Atelectasis; Z85.6 Personal history of leukemia; Z71.3 Dietary counseling and surveillance; Z68.36 Body mass index [BMI] 36.0-36.9, adult; K21.9 Gastro-esophageal reflux disease without esophagitis; N31.9 Neuromuscular dysfunction of bladder, unspecified; Z79.4 Long term (current) use of insulin; Z87.440 Personal history of urinary (tract) infections; Z79.82 Long term (current) use of aspirin; Z79.899 Other long term (current) drug therapy
CPT/HCPCS: 36415; 71045; 74177; 80048; 80053; 80076; 81001; 82607; 82746; 82947; 83605; 83735; 85007; 85025; 85027; 87040; 87086; 87088; 94640; 94660; 97162; 97530; 99285; J2270; J2405; J2543; J7120; Q9967

== ENCOUNTER → 2024-04-13 23:01 | Outpatient (BNV) | payer OTHER, SELFPAY | PROVIDERS: Admitting Provider Internal Medicine; Emergency Provider Emergency Medicine; Visit Provider Internal Medicine | DX: D72.829 Elevated white blood cell count, unspecified (principal); N10 Acute pyelonephritis | CPT/HCPCS: 99222; 99232; 99239; G0180 ==

== ENCOUNTER → 2024-04-13 23:01 | Outpatient (BNV) | payer MEDICAID, SELFPAY | PROVIDERS: Admitting Provider Internal Medicine; Emergency Provider Emergency Medicine; Visit Provider Internal Medicine | DX: D72.829 Elevated white blood cell count, unspecified (principal); N10 Acute pyelonephritis | CPT/HCPCS: 99222 ==

== ENCOUNTER 2024-04-24 14:07 | Emergency (ER) | payer MEDICAID, SELFPAY ==
[2024-04-24 14:26] VITALS: BP 125/59; PULSE 67; RESP 20; TEMP 37.2; O2SAT 97; BMI 38.6
--- NOTE | 2024-04-24 14:28 | ED_ITS ---
HPI - General Adult General Chief complaint: Abdominal Pain Stated complaint: UTI seen here recently Time Seen by Provider: 04/24/24 22:52 Source: patient, RN notes reviewed and old records reviewed Mode of arrival: ambulatory Limitations: no limitations History of Present Illness ED Provider: Bárbara CORDERO narrative: 63-year-old male with past medical history significant for CLL, neurogenic bladder, diabetes, hyperlipidemia, hypertension, CAD presents for evaluation of bladder pain Patient was admitted to this facility on 04/13/2024 and discharged on 04/17/2024 for a diagnosis of pyelonephritis The patient's self catheterize is due to neurogenic bladder. He reports he has been having increased bladder pain after catheterizing He describes his pain as ?spasms. ? He is still taking his course of Augmentin that he was prescribed for 2 weeks recommended by Infectious Disease on his discharge Of note, his urine culture from his admission grew out Liss albicans, but no actual bacteria The patient does not believe he has ever been on any antifungal medications. He follows with urology in the [place] area but recently moved to [place] in his looking to get established with Urology locally. He reports his last cystoscopy was about 6 months ago The patient denies any fevers, chills Related Data Home Medications ?Medication ?Instructions ?Recorded ?Confirmed albuterol sulfate 90 mcg/actuation 2 puff inhalation Q6H PRN wheezing 04/14/24 04/14/24 aerosol inhaler (Ventolin HFA) aspirin 81 mg tablet,delayed 81 mg PO DAILY 04/14/24 04/14/24 release atorvastatin 40 mg tablet 40 mg PO BEDTIME 04/14/24 04/14/24 finerenone 10 mg tablet (Kerendia) 10 mg PO DAILY 04/14/24 04/14/24 fluticasone propionate 50 2 spray intranasal DAILY 04/14/24 04/14/24 mcg/actuation nasal spray,suspension glucagon 3 mg/actuation nasal 3 mg intranasal DAILY PRN 04/14/24 04/14/24 spray (Baqsimi) Hypoglycemia glucose 4 gram chewable tablet 16 g PO TID PRN diabetes mellitus 04/14/24 04/14/24 insulin glargine 100 unit/mL (3 48 unit subcut DAILY@0730 04/14/24 04/14/24 mL) subcutaneous pen (Lantus Solostar U-100 Insulin) insulin lispro 100 unit/mL 12 - 14 unit subcut BID-TID 04/14/24 04/14/24 subcutaneous pen metoprolol succinate 50 mg 50 mg PO DAILY 04/14/24 04/14/24 tablet,extended release 24 hr mirtazapine 30 mg tablet 30 mg PO BEDTIME 04/14/24 04/14/24 nitroglycerin 0.4 mg sublingual 0.4 mg sublingual USEASDIRECTD PRN 04/14/24 04/14/24 tablet Chest Pain pantoprazole 40 mg tablet,delayed 40 mg PO DAILY@0630 04/14/24 04/14/24 release pregabalin 200 mg capsule 200 mg PO BID neuropathy 04/14/24 04/14/24 ranolazine 1,000 mg 1,000 mg PO BID 04/14/24 04/14/24 tablet,extended release,12 hr Previous Rx's ?Medication ?Instructions ?Recorded acetaminophen 325 mg tablet 975 mg (3 x 325 mg) PO TID #10 tabs 04/17/24 acetaminophen 325 mg-DM 10 mg/10 20 ml PO Q4H PRN cough #118 mL 04/17/24 mL oral liquid (Robitussin Cough-Sore Throat) amoxicillin 875 mg-potassium 1 tab PO BID #25 tabs 04/17/24 clavulanate 125 mg tablet docusate sodium 100 mg capsule 100 mg PO BEDTIME #30 caps 04/17/24 lidocaine 4 % topical patch 1 patch topical DAILY PRN pain 04/17/24 (scale score 4-6) #10 ea polyethylene glycol 3350 17 gram 17 g PO DAILY PRN Constipation #30 04/17/24 oral powder packet ea tamsulosin 0.4 mg capsule 0.4 mg PO BEDTIME #30 caps 04/17/24 walker #1 ea 04/17/24 fluconazole 200 mg tablet 200 mg PO DAILY #14 tabs 04/24/24 (Diflucan) phenazopyridine 200 mg tablet 200 mg PO TID PRN pain 6 doses #6 04/24/24 (Pyridium) tabs Allergies Allergy/AdvReac Type Severity Reaction Status Date / Time Sulfa (Sulfonamide Allergy Rash Verified 04/24/24 14:29 Antibiotics) ticagrelor [From Brilinta] Allergy Abdominal Verified 04/24/24 14:29 Pain Review of Systems 2 Constitutional: Constitutional: Denies body ache(s), Denies chills, Denies fever(s) and Denies frequent falls Eyes: Eyes: Denies blurry vision ENT: Denies sore throat Cardiovascular: Cardiovascular: Denies chest pain and Denies dyspnea Respiratory: Respiratory: Denies cough and Denies dyspnea Gastrointestinal: Gastrointestinal: Reports abdominal pain, Denies nausea and Denies vomiting Genitourinary: Genitourinary: Denies hematuria, Denies oliguria, Denies difficulty urinating, Reports dysuria, Denies nocturia, Denies urinary frequency and Reports urinary hesitancy Musculoskeletal: Musculoskeletal: Denies back pain Integumentary/Breasts: Skin/Breast: Denies rash Neurologic: Denies frequent falls PMFSH Past Medical History Medical History CLL (chronic lymphocytic leukemia) Frequent UTI Neurogenic bladder Coronary artery disease Diabetes Hyperlipidemia Hypertension Social History Social History Household Members: Family Household Members Other:: patient lives with his sister and her son who is 27yrs old. Do you presently have visiting nurse or other home services: No Alcohol intake: current Alcohol intake frequency: holidays/special occasions only Patient Tobacco Use Status: Former Tobacco user Tobacco use type: Cigarette Second Hand Smoke Exposure: No Substance Use Type: Marijuana Advance Directives: No Advance Directives Information Provided: No Do you have a plan to hurt others: No Plan service: No Physical Exam ED Vital Signs: Vital Signs - 24 hr 04/24/24 14:26 04/24/24 21:24 04/24/24 22:49 Temperature 98.9 F 98.3 F 97.6 F Pulse Rate 67 60 56 Respiratory Rate 20 16 18 Blood Pressure 125/59 L 142/75 H 109/53 L Pulse Oximetry 97 96 95 Oxygen Delivery Method Room Air Room Air Room Air BMI result Body Mass Index 38.6 Const General: healthy appearing, comfortable, no acute distress, alert and awake Nutritional Appearance: well nourished Orientation/consciousness: patient oriented x3 HENMT Head: Yes normocephalic and Yes atraumatic Eyes Eyelids: Yes eyelids normal Conjunctivae: conjunctivae normal Sclerae: sclerae normal Corneas: corneas normal Pupils: Equal, round and reactive pupils present EOM: EOMs intact bilaterally Neck Neck: Yes full ROM Resp Effort & Inspection: normal respiratory effort, able to speak in complete sentences and not labored GI Inspection: No distended Palpation (GI): Soft to palpation, not firm, nontender, no guarding and not rigid Skin General skin exam: elasticity normal Neuro General: patient oriented x3 Cranial nerves: Yes Equal, round and reactive pupils present and Yes Bilaterally intact EOM present Cognition (Neuro): normal cognition Course Course Course Narrative: 63 y/o man with past medical history of neurogenic bladder self catheterizations, type 2 diabetes mellitus on insulin, CKD, CLL, COPD and hypertension presents to the emergency department with complaints of suprapubic pain since yesterday. No Fevers, chills, N/V/D. 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 Recent admission from 04/13 - 04/17 for pyelonephritis. Plan: Labs, UA, further ER eval needed. Medications Administered Discontinued Medications Generic Name Dose Route Start Last Admin Trade Name Fitoq PRN Reason Stop Dose Admin Fluconazole 150 mg 04/24/24 23:39 04/25/24 00:00 Fluconazole 150 Mg Tablet PO 04/24/24 23:40 150 mg ONCE ONE Administration Phenazopyridine HCl 200 mg 04/24/24 23:39 04/24/24 23:59 Phenazopyridine Hcl 200 Mg Tablet PO 04/24/24 23:40 200 mg ONCE ONE Administration Medical Decision Making Medical Decision Making [facility] Narrative: 63-year-old male past medical history as documented above presents for evaluation of abdominal pain specifically after urinating/self catheterizing. The patient is afebrile, he is not tachycardic, he is mildly hypotensive. He does have a leukocytosis to 15.6 K. this is continuing to trend downward from his last admission his chemistries are significant for a mild KALEY with a creatinine of 1.70 which is above his baseline of 1.4. This may be related to mild dehydration versus bladder outlet obstruction. He has no significant electrolyte abnormalities warranting intervention. I reviewed his recent admission which showed Liss albicans as the only cultured organism. There was no bacteria. Per up-to-date recommendations given the patient is experiencing symptomatic candiduria we will treat with Diflucan daily for 2 weeks. The patient was given referral to urology and follow-up locally Differential Diagnosis Differential Diagnoses: The differential diagnosis associated with the presentation includes UTI Pyelonephritis Cystitis Neurogenic bladder Candiduria Admission/Observation Consideration of admission/observation: Escalation of care including admission/observation considered The patient is not septic Lab Data MDM Lab Attestation statement: I reviewed the patient's lab results. See above 04/24/24 14:42 04/24/24 14:42 Labs: Lab Results 04/24/24 04/24/24 Range/Units 14:42 14:46 WBC 15.6 H (4.8-10.8) X10*3/uL RBC 5.02 (4.60-5.80) X10*6/uL Hgb 15.0 (14.0-18.0) g/dl Hct 44.6 (42.0-52.0) % MCV 88.8 (80.0-98.0) fL MCH 29.9 (27.0-33.0) pg MCHC 33.6 (31.0-36.0) g/dl RDW 15.4 (11.0-16.0) % Plt Count 114 L (160-400) X10*3/uL MPV 10.2 (9.4-12.4) fL Immature Gran % (Auto) 1.2 H (0.0-0.4) % Neut % (Auto) 37.4 L (45-73) % Lymph % (Auto) 58.0 H (20-40) % [place] % (Auto) 2.6 (2-11) % Eos % (Auto) 0.6 (0-4) % Baso % (Auto) 0.2 (0-2) % Lymph # (Auto) 9.1 H (1.2-4.9) X10*3/uL [place] # (Auto) 0.4 (0.1-1.2) X10*3/uL Eos # (Auto) 0.1 (0.0-0.4) X10*3/uL Baso # (Auto) 0.0 (0.0-0.2) X10*3/uL Abs Immat Gran (auto) 0.18 H (0.00-0.03) X10*3/uL Absolute Neuts (auto) 5.9 (2.0-8.3) x10*3/uL Absolute Nucleated RBC 0.000 (0.0-0.012) X10*3/uL Nucleated RBC % (auto) 0.0 (0.0-0.2) /100WBC Smear Tech's Comments VERIFIED Sodium 137 (135-145) mmol/L Potassium 4.4 (3.3-5.1) mmol/L Chloride 106 (96-108) mmol/L Carbon Dioxide 22 (22-29) mmol/L Anion Gap 13 (12-20) BUN 20 H (9-16) mg/dL Creatinine 1.70 H (0.5-1.4) mg/dL Estim Creat Clear Calc 57.9 Estimated GFR 41 Random Glucose 309 H (60-115) mg/dL Calcium 9.7 D (8.4-10.2) mg/dL Total Bilirubin 0.6 (0.0-1.0) mg/dL Direct Bilirubin 0.2 (0.0-0.5) mg/dL AST 10 (5-37) U/L ALT 19 (0-40) U/L Alkaline Phosphatase 137 H (39-117) U/L Total Protein 6.3 L (6.5-8.0) g/dL Albumin 4.1 (3.5-5.0) g/dL Lipase 119 H (8-78) U/L Urine Color Yellow Urine Appearance Turbid Urine pH 6.5 (5.0-9.0) Ur Specific [place] 1.010 (1.005-1.025) Urine Protein 30 (1+) H (Neg-Trace) mg/dL Urine Glucose (UA) 500 H (Negative) mg/dL Urine Ketones Negative (Negative) mg/dL Urine Blood Small (1+) H (Negative) Urine Nitrite Negative (Negative) Ur Leukocyte Esterase Large (3+) H (Negative) Urine RBC 6-10 H (0-2) /HPF Urine WBC >50 H (0-5) /HPF Ur Squamous Epith Cells 0-2 (0-2) /HPF Urine Bacteria None Seen (None Seen) Hyaline Casts 0-2 (0-2) /LPF Discharge Plan Discharge Clinical Impression: Urethritis Patient Disposition: Home, Self-Care Instructions: Urinary Tract Infection in Men (ED) Additional Instructions: Your workup in the ER today showed pyuria but no obvious bacteria in the urine. I recommend increasing water intake as you had a mild elevation of your kidney function You were given a dose of Diflucan and a medication called Pyridium that helps treat urinary pain I recommend that you take Diflucan daily for 2 weeks Follow with Urology You may call Dr. Bonds's office tomorrow morning to schedule follow-up Prescriptions: New fluconazole [Diflucan] 200 mg tablet 200 mg PO DAILY Qty: 14 0RF phenazopyridine [Pyridium] 200 mg tablet 200 mg PO TID PRN (Reason: pain) Qty: 6 0RF No Action atorvastatin 40 mg tablet 40 mg PO BEDTIME metoprolol succinate 50 mg tablet extended release 24 hr 50 mg PO DAILY aspirin 81 mg tablet,delayed release (DR/EC) 81 mg PO DAILY pantoprazole 40 mg tablet,delayed release (DR/EC) 40 mg PO DAILY@0630 mirtazapine 30 mg tablet 30 mg PO BEDTIME glucose 4 gram tablet,chewable 16 g PO TID PRN (Reason: diabetes mellitus) Rx Instructions: if blood sugar is 70 or lower fluticasone propionate 50 mcg/actuation spray,suspension 2 spray intranasal DAILY Rx Instructions: 2 sprays each nostril pregabalin 200 mg capsule 200 mg PO BID ranolazine 1,000 mg tablet extended release 12 hr 1,000 mg PO BID Baqsimi 3 mg/actuation spray,non-aerosol 3 mg intranasal DAILY PRN (Reason: Hypoglycemia) Kerendia 10 mg tablet 10 mg PO DAILY nitroglycerin 0.4 mg tablet, sublingual 0.4 mg sublingual USEASDIRECTD PRN (Reason: Chest Pain) albuterol sulfate [Ventolin HFA] 90 mcg/actuation HFA aerosol inhaler 2 puff inhalation Q6H PRN (Reason: wheezing) insulin glargine [Lantus Solostar U-100 Insulin] 100 unit/mL (3 mL) insulin pen 48 unit subcut DAILY@0730 insulin lispro 100 unit/mL insulin pen 12 - 14 unit subcut BID-TID acetaminophen 325 mg Tablet 975 mg PO TID Qty: 10 0RF polyethylene glycol 3350 17 gram Powder In Packet 17 g PO DAILY PRN (Reason: Constipation) Qty: 30 0RF tamsulosin 0.4 mg Capsule 0.4 mg PO BEDTIME Qty: 30 0RF docusate sodium 100 mg Capsule 100 mg PO BEDTIME Qty: 30 0RF amoxicillin-pot clavulanate 875-125 mg tablet 1 tab PO BID Qty: 25 0RF Robitussin Cough-Sore Throat 325-10 mg/10 mL liquid 20 ml PO Q4H PRN (Reason: cough) Qty: 118 0RF lidocaine 4 % adhesive patch,medicated 1 patch topical DAILY PRN (Reason: pain (scale score 4-6)) Qty: 10 0RF (DME) zuly Misc See Rx Instructions .ROUTE .MEDSUPPLY Qty: 1 0RF Rx Instructions: As directed Interventions: ED Discharge Assessment Last Done: 04/25/24 00:08 Print Language: Azeri
[2024-04-24 14:47] LABS: Basophils Percent Auto 0.2 % (0-2); Eosinophils Absolute Auto 0.1 X10*3/uL (0.0-0.4); Eosinophils Percent Auto 0.6 % (0-4); Hematocrit 44.6 % (42.0-52.0); Imm Gran Abs Auto 0.18 X10*3/uL (0.00-0.03); Imm Gran Pct Auto 1.2 % (0.0-0.4); Lymphocytes Absolute Auto 9.1 X10*3/uL (1.2-4.9); MANUAL DIFF FLAG SCAN; Mean Corpuscular HGB Conc 33.6 g/dl (31.0-36.0); Mean Corpuscular Hemoglobin 29.9 pg (27.0-33.0); Mean Corpuscular Volume 88.8 fL (80.0-98.0); Mean Platelet Volume 10.2 fL (9.4-12.4); Monocytes Absolute Auto 0.4 X10*3/uL (0.1-1.2); Monocytes Percent Auto 2.6 % (2-11); Neutrophils Absolute Auto 5.9 x10*3/uL (2.0-8.3); Neutrophils Percent Auto 37.4 % (45-73); Platelet Count 114 X10*3/uL (160-400); Red Blood Count 5.02 X10*6/uL (4.60-5.80); Red Cell Distribution Width 15.4 % (11.0-16.0); SCAN SMEAR FLAG 1; White Blood Count 15.6 X10*3/uL (4.8-10.8)
[2024-04-24 14:54] LABS: Appearance Urine Turbid; Color Urine Yellow; Glucose Urine UA 500 mg/dL (Negative); Leukocyte Esterase Urine Large (3+) (Negative); Nitrite Urine Negative (Negative); PH 6.5 (5.0-9.0); UMIC TRIGGER UACC YES; Urine Blood Small (1+) (Negative); Urine Ketones Negative (Negative); Urine Protein 30 (1+) mg/dL (Neg-Trace)
[2024-04-24 14:56] LABS: Bacteria Urine None Seen (None Seen); Hyaline Casts Urine 0-2 /LPF (0-2); Squamous Epithelial Cell Urine 0-2 /HPF (0-2); UACC Culture Trigger YES; WBC Urine >50 /HPF (0-5)
[2024-04-24 15:09] LABS: Alanine Aminotransferase 19 U/L (0-40); Albumin Level 4.1 g/dL (3.5-5.0); Alkaline Phosphatase 137 U/L (39-117); Anion Gap 13 (12-20); Aspartate Amino Transferase 10 U/L (5-37); Bilirubin Direct 0.2 mg/dL (0.0-0.5); Bilirubin Total 0.6 mg/dL (0.0-1.0); Blood Urea Nitrogen 20 mg/dL (9-16); Calcium 9.7 mg/dL (8.4-10.2); Carbon Dioxide 22 mmol/L (22-29); Chloride 106 mmol/L (96-108); Creatinine Clr Calc Pharmacy 57.9; Estimated Glomerular Filt Rate 41; Glucose Random 309 mg/dL (60-115); Lipase 119 U/L (8-78); Potassium 4.4 mmol/L (3.3-5.1); Sodium 137 mmol/L (135-145); Total Protein 6.3 g/dL (6.5-8.0)
[2024-04-24 15:11] LABS: SLIDE REVIEW VERIFIED
[2024-04-24 21:24] VITALS: BP 142/75; PULSE 60; RESP 16; TEMP 36.8; O2SAT 96
[2024-04-24 22:49] VITALS: BP 109/53; PULSE 56; RESP 18; TEMP 36.4; O2SAT 95
[2024-04-24] MEDS: Phenazopyridine HCL 200 MG TABLET PO (23:59)
[2024-04-25] MEDS: Fluconazole 150 MG TABLET PO
[2024-04-25 00:08] VITALS: BP 109/53; PULSE 56; RESP 18; TEMP 36.4; O2SAT 95
== END 2024-04-25 00:17 | disposition home or self-care (01) ==
PROVIDERS: Physician Assistant Medical; Emergency Provider Emergency Medicine
DX: N34.2 Other urethritis (principal); R39.89 Other symptoms and signs involving the genitourinary system; R10.2 Pelvic and perineal pain; Z79.899 Other long term (current) drug therapy; Z87.891 Personal history of nicotine dependence
CPT/HCPCS: 36415; 80048; 80076; 81001; 83690; 85025; 87086; 99283

== ENCOUNTER 2024-05-09 06:22 | Emergency (ER) | payer MEDICAID, SELFPAY ==
[2024-05-09] VITALS (8 sets, daily range): BP systolic 102–132; BP diastolic 60–68; PULSE 56–66; RESP 16–18; TEMP 36.4–36.9; O2SAT 94–100; BMI 36.5
--- NOTE | ~2024-05-09 | XR_ITS ---
EXAMINATION: XR KNEE, LEFT CLINICAL INFORMATION: Left knee pain COMPARISON: None available. TECHNIQUE: Four views of the left knee. FINDINGS: BONES: Bony structures are intact. Tiny osteophytes are seen at the left patellar articular border. There is no focal bone destruction or periosteal reaction seen. JOINTS: Alignment of joints is normal. There is moderate asymmetric decrease in medial compartment left knee joint space. SOFT TISSUE: Left suprapatellar fat pad shows increase in density. No radiopaque foreign body or abnormal air collection is seen. XR/XR knee LT 4V IMPRESSION: 1. Moderate medial compartment left tibiofemoral joint osteoarthritis and mild left patellofemoral joint osteoarthritis. 2. No fracture or dislocation or signs of osteomyelitis are found. 3. Trace left knee effusion is present. Electronically signed by: Karly Hamilton MD 05/09/2024 07:40 AM EDT
--- NOTE | ~2024-05-09 | US_ITS ---
EXAMINATION: US VENOUS LEFT LOWER EXTREMITY CLINICAL INFORMATION: Left lower extremity pain COMPARISON: None. TECHNIQUE: Doppler spectral analysis and color flow Doppler imaging was performed of the left lower extremity. Compression and augmentation maneuvers were performed. FINDINGS: The left common femoral, femoral, popliteal and calf veins were well-identified and normal. They demonstrate normal compressibility and color fill-in. US/US venous duplex LE IMPRESSION: No evidence for left lower extremity deep vein thrombosis. Electronically signed by: Migel Cee MD 05/09/2024 08:05 AM EDT
--- NOTE | 2024-05-09 06:37 | ED.LOWEXIN ---
HPI - Extremity Injury (Lower) General Chief Complaint: Extremity Injury, Lower Stated Complaint: L Knee Pain No Injury Time Seen by Provider: 05/09/24 06:36 Source: patient Mode of arrival: ambulatory Limitations: no limitations History of Present Illness ED Provider: Gema Gordon PA-C HPI Narrative: THis is a [id number]-male, with a medical history of neurogenic bladder self catheterizations, type 2 diabetes mellitus on insulin, CKD, CLL, COPD and hypertension who presents to the ER with complaints of atraumatic L knee pain x 2 days. He reports no recent trauma, injury or twisting. He states that since he has felt the pain yesterday morning the pain has only increased in severity. He has tried taking OTC tylenol which has provided him with minimal relief. Reports previous knee dislocation but unsure what knee this was. No fevers, chills, chest pain, or shortness of breath. He is able to weight bear on his left knee however reports pain when doing so. No other complaints or concerns at this time. Onset (ago): day(s) Injury: Left: knee Type of Injury: unknown Severity: moderate Relieving factors: rest Exacerbating factors: weight bearing, movement and palpation Other symptoms: none Related Data Home Medications ?Medication ?Instructions ?Recorded ?Confirmed albuterol sulfate 90 mcg/actuation 2 puff inhalation Q6H PRN wheezing 04/14/24 04/14/24 aerosol inhaler (Ventolin HFA) aspirin 81 mg tablet,delayed 81 mg PO DAILY 04/14/24 04/14/24 release atorvastatin 40 mg tablet 40 mg PO BEDTIME 04/14/24 04/14/24 finerenone 10 mg tablet (Kerendia) 10 mg PO DAILY 04/14/24 04/14/24 fluticasone propionate 50 2 spray intranasal DAILY 04/14/24 04/14/24 mcg/actuation nasal spray,suspension glucagon 3 mg/actuation nasal 3 mg intranasal DAILY PRN 04/14/24 04/14/24 spray (Baqsimi) Hypoglycemia glucose 4 gram chewable tablet 16 g PO TID PRN diabetes mellitus 04/14/24 04/14/24 insulin glargine 100 unit/mL (3 48 unit subcut DAILY@0730 04/14/24 04/14/24 mL) subcutaneous pen (Lantus Solostar U-100 Insulin) insulin lispro 100 unit/mL 12 - 14 unit subcut BID-TID 04/14/24 04/14/24 subcutaneous pen metoprolol succinate 50 mg 50 mg PO DAILY 04/14/24 04/14/24 tablet,extended release 24 hr mirtazapine 30 mg tablet 30 mg PO BEDTIME 04/14/24 04/14/24 nitroglycerin 0.4 mg sublingual 0.4 mg sublingual USEASDIRECTD PRN 04/14/24 04/14/24 tablet Chest Pain pantoprazole 40 mg tablet,delayed 40 mg PO DAILY@0630 04/14/24 04/14/24 release pregabalin 200 mg capsule 200 mg PO BID neuropathy 04/14/24 04/14/24 ranolazine 1,000 mg 1,000 mg PO BID 04/14/24 04/14/24 tablet,extended release,12 hr Previous Rx's ?Medication ?Instructions ?Recorded acetaminophen 325 mg tablet 975 mg (3 x 325 mg) PO TID #10 tabs 04/17/24 acetaminophen 325 mg-DM 10 mg/10 20 ml PO Q4H PRN cough #118 mL 04/17/24 mL oral liquid (Robitussin Cough-Sore Throat) amoxicillin 875 mg-potassium 1 tab PO BID #25 tabs 04/17/24 clavulanate 125 mg tablet docusate sodium 100 mg capsule 100 mg PO BEDTIME #30 caps 04/17/24 lidocaine 4 % topical patch 1 patch topical DAILY PRN pain 04/17/24 (scale score 4-6) #10 ea polyethylene glycol 3350 17 gram 17 g PO DAILY PRN Constipation #30 04/17/24 oral powder packet ea tamsulosin 0.4 mg capsule 0.4 mg PO BEDTIME #30 caps 04/17/24 walker #1 ea 04/17/24 fluconazole 200 mg tablet 200 mg PO DAILY #14 tabs 04/24/24 (Diflucan) phenazopyridine 200 mg tablet 200 mg PO TID PRN pain 6 doses #6 04/24/24 (Pyridium) tabs acetaminophen 500 mg tablet 1,000 mg (2 x 500 mg) PO Q8H PRN 05/09/24 (Tylenol Extra Strength) pain #30 tabs oxycodone 5 mg tablet 5 mg PO Q6H PRN severe pain (scale 05/09/24 score 7-10) #7 tabs Allergies Allergy/AdvReac Type Severity Reaction Status Date / Time Sulfa (Sulfonamide Allergy Rash Verified 05/09/24 06:36 Antibiotics) ticagrelor [From Brilinta] Allergy Abdominal Verified 05/09/24 06:36 Pain Review of Systems Review of Systems: Yes all other systems are reviewed and are negative Constitutional: Constitutional: Reports as per [facility] Past Medical History Attestation statement: The following information was validated with the patient. Medical History CLL (chronic lymphocytic leukemia) Frequent UTI Neurogenic bladder Coronary artery disease Diabetes Hyperlipidemia Hypertension Social History Social History Household Members: Family Household Members Other:: patient lives with his sister and her son who is 27yrs old. Do you presently have visiting nurse or other home services: No Alcohol intake: current Alcohol intake frequency: holidays/special occasions only Patient Tobacco Use Status: Former Tobacco user Tobacco use type: Cigarette Smoked in Last 30 Days: No Second Hand Smoke Exposure: No Use of substances other than those prescribed or required for medical reasons: Yes Substance Use Type: Marijuana Substance Use Frequency: Occasionally Advance Directives: Yes Advance Directives Information Provided: Yes Advance Directives on File: No Do you have a plan to hurt others: No Plan service: No Physical Exam Vital Signs: Vital Signs: Last Vital Signs Temp 98.3 F 05/09/24 12:00 Pulse 57 05/09/24 12:00 Resp 16 05/09/24 12:00 BP 124/68 05/09/24 12:00 Pulse Ox 99 05/09/24 12:00 O2 Del Method Room Air 05/09/24 12:00 BMI result Body Mass Index 36.5 Const: General: cooperative, comfortable and no acute distress Orientation/consciousness: patient oriented x3 Limitations: no limitations HEENT: Head: Yes normal to inspection, Yes normocephalic and Yes atraumatic Ears: hearing grossly normal bilaterally General nose exam: Normal external nose present Face and sinus: Yes normal facial exam Mouth: Normal oral and palatal mucosa present, oropharynx normal and moist mucous membranes Throat: Yes posterior oropharynx normal Eyes: General: appearance normal, both eyes and all related structures Eyelids: Yes eyelids normal Conjunctivae: conjunctivae normal Sclerae: sclerae normal Pupils: Equal, round and reactive pupils present EOM: EOMs intact bilaterally Neck: Neck: Yes normal visual inspection, Yes full ROM and Yes no lymphadenopathy Lymphatic: no lymphadenopathy noted Chest: Chest palpation & inspection: normal inspection of the chest Resp: Effort & Inspection: normal respiratory effort and able to speak in complete sentences Auscultation: clear to auscultation bilaterally, no crackles, no rales, no rhonchi and no wheezes Cardio: Rate: regular rate Rhythm: regular rhythm Heart sounds: S1 normal heart sound present and S2 normal heart sound present GI: Inspection: Yes normal to inspection Skin: General skin exam: no rashes or lesions noted Trauma: no lacerations or abrasions Wounds: no wounds Neuro: General: patient oriented x3 and moves all extremities Cranial nerves: Yes Equal, round and reactive pupils present Extrem: Other: Left knee with no obvious bony deformity. Mild effusion noted overlying the medial and lateral joint line. Tenderness palpation overlying the medial and lateral joint line. No overlying erythema or warmth. DP pulse 2+. Able to flex and extend at the left knee. Mild tenderness palpation along the left calf. General: Yes normal to inspection Right upper extremity: normal to inspection Left upper extremity: normal to inspection Right lower extremity: normal to inspection Left lower extremity: normal to inspection Course Reevaluation(s) Reevaluation #1: Knee x-ray revealing moderate medial compartment left tibial femoral joint osteoarthritis and mild left patellofemoral joint osteoarthritis. No fracture dislocation or signs of osteomyelitis. There is a trace left joint effusion present. Awaiting ultrasound to be performed. Time: 07:44 Reevaluation #2: Ultrasound performed, no evidence of DVT. Discussed overall workup with patient. He was previously seen by [facility] for joint injections. I advised patient to call them to follow-up. He states that he did so however they are unable to see him until July. Time: 08:20 Reevaluation #3: Physician observation was initiated as patient should be seen by Physical therapy as we attempted to discharge patient however appeared to be slightly unstable secondary to knee pain. Time: 11:19 Additional Reevaluation(s): 1867 - Observation care revealed that the patient [does or does not meet] medical necessity for hospitalization. Final disposition discussed with the patient. The patient completed observation care at 1427. He will go home with services at home. Patient stable for discharge. Medications Administered Discontinued Medications Generic Name Dose Route Start Last Admin Trade Name Isela PRN Reason Stop Dose Admin Acetaminophen 975 mg 05/09/24 06:43 05/09/24 06:48 Acetaminophen 325 Mg Tablet PO 05/09/24 06:44 975 mg ONCE ONE Administration Medical Decision Making Medical Decision Making MDM Narrative: This is a 53-zjrx-gew-male, with a medical history of neurogenic bladder self catheterizations, type 2 diabetes mellitus on insulin, CKD, CLL, COPD and hypertension who presents emergency department with complaints of atraumatic left knee pain for the last 2 days. On arrival, vital signs within normal limits. Left knee with no obvious bony deformity, mild swelling over the medial and lateral joint line. Able to flex and extend knee with pain. He does have slight left calf tenderness. Strong DP pulse. Differential diagnoses include joint effusion, DVT, fracture, sprain, strain. Given recent hospitalization, as well as left calf tenderness, will obtain ultrasound to rule out DVT. Plan: X-ray left knee, ultrasound left leg Differential Diagnosis Differential Diagnoses: The differential diagnosis associated with the presentation includes See above Lab Data Labs: Lab Results 05/09/24 Range/Units 10:43 POC Glucose 180 H (60-115) mg/dL Radiology Impression Discussion of test interpretation with radiology: I have reviewed the radiologist's reading. Radiologist Impression: XR/XR knee LT 4V IMPRESSION: 1. Moderate medial compartment left tibiofemoral joint osteoarthritis and mild left patellofemoral joint osteoarthritis. 2. No fracture or dislocation or signs of osteomyelitis are found. 3. Trace left knee effusion is present. Electronically signed by: Karly Hamilton MD 05/09/2024 07:40 AM EDT RP Dictated By: Karly Hamilton Discharge Plan Discharge Clinical Impression: Knee pain, left Patient Disposition: Home, Self-Care Instructions: Knee Pain (ED) Additional Instructions: You were seen in the emergency department due to knee pain. Your x-rays reveal arthritis in your knee. Please rest, elevate your knee, and take Tylenol as needed for pain. I am also prescribing oxycodone, this is a strong pain medication, please be advised that this can be addictive, only take as prescribed. Please be advised that oxycodone can cause drowsiness, do not drink alcohol or drive while taking this medication. We are unable to refill strong narcotic pain medications from the emergency room, please follow-up with your PCP. If any new or worsening symptoms occur including but not limited to chest pain, shortness of breath, inability to binge your knee, increased redness, fevers, please seek emergent care Prescriptions: New acetaminophen [Tylenol Extra Strength] 500 mg tablet 1,000 mg PO Q8H PRN (Reason: pain) Qty: 30 0RF oxycodone 5 mg tablet 5 mg PO Q6H PRN (Reason: severe pain (scale score 7-10)) Qty: 7 0RF Rx Instructions: Partial Fill upon patient request. No Action atorvastatin 40 mg tablet 40 mg PO BEDTIME metoprolol succinate 50 mg tablet extended release 24 hr 50 mg PO DAILY aspirin 81 mg tablet,delayed release (DR/EC) 81 mg PO DAILY pantoprazole 40 mg tablet,delayed release (DR/EC) 40 mg PO DAILY@0630 mirtazapine 30 mg tablet 30 mg PO BEDTIME glucose 4 gram tablet,chewable 16 g PO TID PRN (Reason: diabetes mellitus) Rx Instructions: if blood sugar is 70 or lower fluticasone propionate 50 mcg/actuation spray,suspension 2 spray intranasal DAILY Rx Instructions: 2 sprays each nostril pregabalin 200 mg capsule 200 mg PO BID ranolazine 1,000 mg tablet extended release 12 hr 1,000 mg PO BID Baqsimi 3 mg/actuation spray,non-aerosol 3 mg intranasal DAILY PRN (Reason: Hypoglycemia) Kerendia 10 mg tablet 10 mg PO DAILY nitroglycerin 0.4 mg tablet, sublingual 0.4 mg sublingual USEASDIRECTD PRN (Reason: Chest Pain) albuterol sulfate [Ventolin HFA] 90 mcg/actuation HFA aerosol inhaler 2 puff inhalation Q6H PRN (Reason: wheezing) insulin glargine [Lantus Solostar U-100 Insulin] 100 unit/mL (3 mL) insulin pen 48 unit subcut DAILY@0730 insulin lispro 100 unit/mL insulin pen 12 - 14 unit subcut BID-TID acetaminophen 325 mg Tablet 975 mg PO TID Qty: 10 0RF polyethylene glycol 3350 17 gram Powder In Packet 17 g PO DAILY PRN (Reason: Constipation) Qty: 30 0RF tamsulosin 0.4 mg Capsule 0.4 mg PO BEDTIME Qty: 30 0RF docusate sodium 100 mg Capsule 100 mg PO BEDTIME Qty: 30 0RF amoxicillin-pot clavulanate 875-125 mg tablet 1 tab PO BID Qty: 25 0RF Robitussin Cough-Sore Throat 325-10 mg/10 mL liquid 20 ml PO Q4H PRN (Reason: cough) Qty: 118 0RF lidocaine 4 % adhesive patch,medicated 1 patch topical DAILY PRN (Reason: pain (scale score 4-6)) Qty: 10 0RF (DME) zuly Misc See Rx Instructions .ROUTE .MEDSUPPLY Qty: 1 0RF Rx Instructions: As directed fluconazole [Diflucan] 200 mg tablet 200 mg PO DAILY Qty: 14 0RF phenazopyridine [Pyridium] 200 mg tablet 200 mg PO TID PRN (Reason: pain) Qty: 6 0RF Referrals: [facility] [Provider Group] Print Language: Maltese
[2024-05-09] MEDS: Acetaminophen 325 MG TABLET 975 MG PO (06:48)
--- NOTE | 2024-05-09 07:13 | PC.NURSE ---
PT Axox 3 right side lying in bed. Mult scratches/bruising from dogs at home. Knee is slightly swollen. No reddness, no warmth. Ice pack applied. Awaits U/S
--- NOTE | 2024-05-09 10:45 | PC.NURSE ---
Pt reports feeling like numb, like my body is asleep POC 180. axox3. VSS. repositioned in bed. reports that ice is helping leftknee pain.
[2024-05-09 10:48] LABS: Glucose, Whole Blood 180 mg/dL (60-115)
--- NOTE | 2024-05-09 11:08 | PC.NURSE ---
RIVKA wrap applied. Pt able to ambulate short distance iwth walker. Reports diff putting weight on left leg. PT will be consulted. Pt aware of plan of care.
--- NOTE | 2024-05-09 14:58 | MHC.CM.ED ---
Received case management consult from Gema MENESES. Patient came to the ER due to knee pain. Work up essentially negative. Physical therapy eval completed. Home with services is recommended. Met with patient in regards to discharge planning. Patient lives with his sister and nephew, ambulates with a cane, and has cpap through [employer]. Patient states he was supposed to have VNA services when he was d/c'd but they weren't able to find an agency for him. Patient agreeable to referral being broadcasted. Patient will d/c home. Patient, Kaykay FUCHS and Gema MENESES aware. Continue to monitor for d/c needs.
--- NOTE | 2024-05-15 12:47 | MHC.CM.ED ---
VNA has not been able to be secured. CM assisstant requested to reach out to PCP's office to provide this info to them, so they can continue to search for a VNA for patient.
== END 2024-05-09 15:25 | disposition home or self-care (01) ==
PROVIDERS: Emergency Provider Emergency Medicine
DX: M25.562 Pain in left knee (principal); R60.0 Localized edema; R26.2 Difficulty in walking, not elsewhere classified; I25.10 Atherosclerotic heart disease of native coronary artery without angina pectoris; E11.9 Type 2 diabetes mellitus without complications; Z79.4 Long term (current) use of insulin; Z79.899 Other long term (current) drug therapy; Z87.891 Personal history of nicotine dependence
CPT/HCPCS: 73564; 82947; 93971; 97162; 99284

== ENCOUNTER 2024-05-26 12:16 | Emergency (ER) | payer MEDICAID, SELFPAY ==
--- NOTE | ~2024-05-26 | CT_ITS ---
EXAMINATION: CT ABDOMEN AND PELVIS WITHOUT CONTRAST CLINICAL INFORMATION: Right flank pain. COMPARISON: April 13, 2024. TECHNIQUE: Multidetector volumetric imaging was performed from the superior aspect of the liver through the pubic symphysis. Sagittal and coronal reformatted images were obtained on the technologist's workstation. This CT examination was performed using dose optimization techniques as appropriate, variously including the following: *Automated exposure control *Adjustment of mA and/or kV according to patient size (this includes techniques or standardized protocols for targeted exams where dose is matched to indication/reason for exam; i.e. extremities or head) *Use of iterative reconstruction technique DLP: 801 mGy-cm FINDINGS: LUNG BASES: The lung bases appear clear, with no evidence of inflammation or nodules. LIVER, GALLBLADDER, AND BILIARY TREE: The liver appears unremarkable in size, shape, and attenuation. No focal hepatic lesion or biliary ductal dilatation is appreciated. Unremarkable appearance of the gallbladder. PANCREAS: Unremarkable SPLEEN: Spleen measures approximately 16.5 cm in sagittal dimension, not significantly changed. ADRENAL GLANDS: Unremarkable KIDNEYS AND URETERS: 1.4 cm or less benign bilateral renal cysts for which no further dedicated follow-up imaging is indicated, unchanged. The kidneys otherwise appear unremarkable in size, shape, and attenuation. No hydronephrosis, hydroureter, or calculi seen. BLADDER: Atonic appearance. Question mild diffuse thickening of the wall the urinary bladder. GASTROINTESTINAL TRACT: Stomach and small bowel appear unremarkable. Diverticulosis predominantly involving the sigmoid and descending colon, without evidence of diverticulitis. Normal-appearing distal ileum and vermiform appendix. ABDOMINAL WALL: No significant hernia is appreciated. LYMPH NODES: No evidence of adenopathy by size criteria. 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 PELVIC VISCERA: Unremarkable OSSEOUS STRUCTURES: Degenerative changes of the spine. CT/CT abdomen pelvis wo IV con IMPRESSION: No acute finding. No evidence of urinary tract stone or hydronephrosis. Question neurogenic urinary bladder. Mild splenomegaly, unchanged compared with one month earlier. Additional findings as above. Electronically signed by: Lavon Garcias MD 05/26/2024 04:57 PM EST
[2024-05-26 12:39] VITALS: BP 104/69; PULSE 66; RESP 16; TEMP 36.5; O2SAT 97; BMI 37.4
--- NOTE | 2024-05-26 12:39 | ED_ITS ---
HPI - Abdominal Pain General Chief Complaint: Back Pain/Injury Stated Complaint: r kidney pain Time Seen by Provider: 05/26/24 15:02 Source: patient Limitations: no limitations History of Present Illness ED Provider: Mechelle Casarez PA-C HPI narrative: 63-year-old male with a history of chronic back pain with subsequent gait instability using a walker to ambulate at baseline, morbid obesity, CLL, hypertension, hyperlipidemia, COPD, diabetes, neurogenic bladder who self catheterizes, chronic kidney disease, presents with right flank pain since this morning. Pain over right mid flank, nonradiating and constant. Patient denies trauma, overuse injury or new heavy lifting that could have precipitated his symptoms. Denies history of kidney stones, dysuria or gross hematuria, no fevers. No associated nausea or vomiting. Denies weakness of lower extremities, bowel incontinence, paresthesia of lower extremities. Related Data Home Medications ?Medication ?Instructions ?Recorded ?Confirmed albuterol sulfate 90 mcg/actuation 2 puff inhalation Q6H PRN wheezing 04/14/24 04/14/24 aerosol inhaler (Ventolin HFA) aspirin 81 mg tablet,delayed 81 mg PO DAILY 04/14/24 04/14/24 release atorvastatin 40 mg tablet 40 mg PO BEDTIME 04/14/24 04/14/24 finerenone 10 mg tablet (Kerendia) 10 mg PO DAILY 04/14/24 04/14/24 fluticasone propionate 50 2 spray intranasal DAILY 04/14/24 04/14/24 mcg/actuation nasal spray,suspension glucagon 3 mg/actuation nasal 3 mg intranasal DAILY PRN 04/14/24 04/14/24 spray (Baqsimi) Hypoglycemia glucose 4 gram chewable tablet 16 g PO TID PRN diabetes mellitus 04/14/24 04/14/24 insulin glargine 100 unit/mL (3 48 unit subcut DAILY@0730 04/14/24 04/14/24 mL) subcutaneous pen (Lantus Solostar U-100 Insulin) insulin lispro 100 unit/mL 12 - 14 unit subcut BID-TID 04/14/24 04/14/24 subcutaneous pen metoprolol succinate 50 mg 50 mg PO DAILY 04/14/24 04/14/24 tablet,extended release 24 hr mirtazapine 30 mg tablet 30 mg PO BEDTIME 04/14/24 04/14/24 nitroglycerin 0.4 mg sublingual 0.4 mg sublingual USEASDIRECTD PRN 04/14/24 04/14/24 tablet Chest Pain pantoprazole 40 mg tablet,delayed 40 mg PO DAILY@0630 04/14/24 04/14/24 release pregabalin 200 mg capsule 200 mg PO BID neuropathy 04/14/24 04/14/24 ranolazine 1,000 mg 1,000 mg PO BID 04/14/24 04/14/24 tablet,extended release,12 hr Previous Rx's ?Medication ?Instructions ?Recorded acetaminophen 325 mg tablet 975 mg (3 x 325 mg) PO TID #10 tabs 04/17/24 acetaminophen 325 mg-DM 10 mg/10 20 ml PO Q4H PRN cough #118 mL 04/17/24 mL oral liquid (Robitussin Cough-Sore Throat) amoxicillin 875 mg-potassium 1 tab PO BID #25 tabs 04/17/24 clavulanate 125 mg tablet docusate sodium 100 mg capsule 100 mg PO BEDTIME #30 caps 04/17/24 lidocaine 4 % topical patch 1 patch topical DAILY PRN pain 04/17/24 (scale score 4-6) #10 ea polyethylene glycol 3350 17 gram 17 g PO DAILY PRN Constipation #30 04/17/24 oral powder packet ea tamsulosin 0.4 mg capsule 0.4 mg PO BEDTIME #30 caps 04/17/24 walker #1 ea 04/17/24 fluconazole 200 mg tablet 200 mg PO DAILY #14 tabs 04/24/24 (Diflucan) phenazopyridine 200 mg tablet 200 mg PO TID PRN pain 6 doses #6 04/24/24 (Pyridium) tabs acetaminophen 500 mg tablet 1,000 mg (2 x 500 mg) PO Q8H PRN 05/09/24 (Tylenol Extra Strength) pain #30 tabs oxycodone 5 mg tablet 5 mg PO Q6H PRN severe pain (scale 05/09/24 score 7-10) #7 tabs methocarbamol 750 mg tablet 750 mg PO BEDTIME #7 tabs 05/26/24 Allergies Allergy/AdvReac Type Severity Reaction Status Date / Time Sulfa (Sulfonamide Allergy Rash Verified 05/26/24 12:42 Antibiotics) ticagrelor [From Brilinta] Allergy Abdominal Verified 05/26/24 12:42 Pain Review of Systems Review of Systems Yes all other systems are reviewed and are negative Constitutional: Denies fatigue and Denies fever(s) Cardiovascular: Denies chest pain and Denies dyspnea Respiratory: Denies cough and Denies dyspnea Gastrointestinal: Denies abdominal pain and Denies nausea Genitourinary: Denies hematuria and Reports flank pain Musculoskeletal: Reports back pain Endocrine: Denies fatigue PMFSH Past Medical History Attestation statement: The following information was validated with the patient. Medical History CLL (chronic lymphocytic leukemia) Frequent UTI Neurogenic bladder Coronary artery disease Diabetes Hyperlipidemia Hypertension Social History Social History Household Members: Family Household Members Other:: patient lives with his sister and her son who is 27yrs old. Do you presently have visiting nurse or other home services: No Alcohol intake: current Alcohol intake frequency: holidays/special occasions only Alcohol type: wine and other Patient Tobacco Use Status: Former Tobacco user Tobacco use type: Cigarette Smoked in Last 30 Days: No Second Hand Smoke Exposure: No Use of substances other than those prescribed or required for medical reasons: Yes Substance Use Type: Marijuana Advance Directives: No Advance Directives Information Provided: No Do you have a plan to hurt others: No Plan service: No Physical Exam ED Vital Signs: Vital Signs - 24 hr 05/26/24 12:39 05/26/24 15:49 Temperature 97.7 F 97.8 F Pulse Rate 66 60 Respiratory Rate 16 18 Blood Pressure 104/69 123/80 Pulse Oximetry 97 94 Oxygen Delivery Method Room Air Room Air BMI result Body Mass Index 37.4 Const Other: Alert, well in appearance Orientation/consciousness: patient oriented x3 Resp Other: Nonlabored respirations Cardio Other: Normal peripheral perfusion GI Other: Abdomen is soft, nondistended nontender obese, no guarding Back/Spine/Pelvis Other: No CVA tenderness Skin Other: Warm dry no rash Neuro Other: Ambulates with normal steady gait it is antalgic, using a walker to ambulate General: patient oriented x3, no focal motor deficits and CN's II-XI intact bilaterally Psych Other: Calm cooperative Course Course Course Narrative: This is an RME performed by S. Barcome, [employer]: Additional HPI, ROS, PE not included below will be deferred to primary provider. Patient is a 63-year-old male past medical history of CLL, neurogenic bladder, frequent UTI, seizure, diabetes, hyperlipidemia, hypertension who presents emergency department for evaluation of right flank pain, onset 0900 this morning, not certain whether this is his kidney versus his back. Reports history of stage 3 kidney disease, ?trouble with the right kidney? prior infections as well as a known tumor. Pain is Exacerbated with movement such as bending. Denies dysuria, hematuria. Admits to intermittent straight catheterization due to neurogenic bladder. Denies fevers, chills, nausea, vomiting. Plan: Serum labs, urinalysis Medical Decision Making Medical Decision Making MDM Narrative: 63-year-old male with a history of chronic back pain with subsequent gait instability using a walker to ambulate at baseline, morbid obesity, CLL, hypertension, hyperlipidemia, COPD, diabetes, neurogenic bladder who self catheterizes, chronic kidney disease, presents with right flank pain since this morning. Pain over right mid flank, nonradiating and constant. Patient denies trauma, overuse injury or new heavy lifting that could have precipitated his symptoms. Denies history of kidney stones, dysuria or gross hematuria, no fevers. No associated nausea or vomiting. Denies weakness of lower extremities, bowel incontinence, paresthesia of lower extremities. Problem: Chronic back pain, CLL, diabetes, neurogenic bladder History: Per patient I have considered the following differential diagnoses: UTI, renal colic, pyelonephritis, cauda equina, exacerbation of chronic back pain Plan: Given acute onset atraumatic right flank pain, I am considering renal colic. Screening labs were obtained, the patient we will give a urine sample now. We will obtain a CT scan, giving Toradol for discomfort. Thought about pyelonephritis, however there was no CVA tenderness, he is afebrile. Thought about cauda equina, however the pain is within the flank not in the lower back, he also has no red flag signs symptoms concerning for cord compression. I have independently reviewed the following tests: Labs: Leukocytosis that is chronic, no electrolyte abnormality, creatinine is at baseline, questionable UTI CT abdomen and pelvis: CT/CT abdomen pelvis wo IV con IMPRESSION: No acute finding. No evidence of urinary tract stone or hydronephrosis. Question neurogenic urinary bladder. Mild splenomegaly, unchanged compared with one month earlier. Additional findings as above. Electronically signed by: Lavon Garcias MD 05/26/2024 04:57 PM [facility] [place] Lab Data 05/26/24 13:00 05/26/24 13:00 Labs: Lab Results 05/26/24 05/26/24 Range/Units 13:00 16:36 WBC 18.0 H (4.8-10.8) X10*3/uL RBC 5.03 (4.60-5.80) X10*6/uL Hgb 15.5 (14.0-18.0) g/dl Hct 45.7 (42.0-52.0) % MCV 90.9 (80.0-98.0) fL MCH 30.8 (27.0-33.0) pg MCHC 33.9 (31.0-36.0) g/dl RDW 15.9 (11.0-16.0) % Plt Count 116 L (160-400) X10*3/uL MPV 10.2 (9.4-12.4) fL Immature Gran % (Auto) 2.1 H (0.0-0.4) % Neut % (Auto) 28.7 L (45-73) % Lymph % (Auto) 63.8 H (20-40) % [place] % (Auto) 4.8 (2-11) % Eos % (Auto) 0.4 (0-4) % Baso % (Auto) 0.2 (0-2) % Lymph # (Auto) 11.5 H (1.2-4.9) X10*3/uL [place] # (Auto) 0.9 (0.1-1.2) X10*3/uL Eos # (Auto) 0.1 (0.0-0.4) X10*3/uL Baso # (Auto) 0.0 (0.0-0.2) X10*3/uL Abs Immat Gran (auto) 0.37 H (0.00-0.03) X10*3/uL Absolute Neuts (auto) 5.2 (2.0-8.3) x10*3/uL Absolute Nucleated RBC 0.000 (0.0-0.012) X10*3/uL Nucleated RBC % (auto) 0.0 (0.0-0.2) /100WBC Smear Tech's Comments VERIFIED Sodium 133 L (135-145) mmol/L Potassium 4.5 (3.3-5.1) mmol/L Chloride 101 (96-108) mmol/L Carbon Dioxide 27 (22-29) mmol/L Anion Gap 10 L (12-20) BUN 27 H (9-16) mg/dL Creatinine 1.41 H (0.5-1.4) mg/dL Estim Creat Clear Calc 70.8 Estimated GFR 51 Random Glucose 200 H (60-115) mg/dL Calcium 9.1 D (8.4-10.2) mg/dL Total Bilirubin 1.0 (0.0-1.0) mg/dL AST 11 (5-37) U/L ALT 22 (0-40) U/L Alkaline Phosphatase 121 H (39-117) U/L Total Protein 6.0 L (6.5-8.0) g/dL Albumin 3.8 (3.5-5.0) g/dL Lipase 38 (8-78) U/L Urine Color Yellow Urine Appearance Cloudy Urine pH 6.0 (5.0-9.0) Ur Specific [place] 1.010 (1.005-1.025) Urine Protein Trace (Neg-Trace) mg/dL Urine Glucose (UA) 500 H (Negative) mg/dL Urine Ketones Negative (Negative) mg/dL Urine Blood Negative (Negative) Urine Nitrite Negative (Negative) Ur Leukocyte Esterase Large (3+) H (Negative) Urine RBC 0-2 (0-2) /HPF Urine WBC >50 H (0-5) /HPF Ur Squamous Epith Cells 0-2 (0-2) /HPF Urine Bacteria 4+ (None Seen) Hyaline Casts 0-2 (0-2) /LPF Medications Administered Discontinued Medications Generic Name Dose Route Start Last Admin Trade Name Freq PRN Reason Stop Dose Admin Ketorolac Tromethamine 15 mg 05/26/24 15:58 05/26/24 16:31 Ketorolac Tromethamine 15 Mg/Ml Vial IM 05/26/24 15:59 15 mg ONCE ONE Administration Discharge Plan Discharge Clinical Impression: Arthritis of spine Patient Disposition: Home, Self-Care Instructions: Osteoarthritis (ED) Additional Instructions: All of your labs were at your baseline, your urine is not infected. The CT scan did not reveal an acute infection, you have degenerative changes of the spine. See home care instructions. Continue to use [id number] Tylenol 1000 mg taken every 8 hours for pain. Use the methocarbamol, this is a muscle relaxant, at nighttime for sleep. To know it will cause drowsiness do not drive or operate machinery while taking the medication. Follow up with your doctor as needed. Prescriptions: New methocarbamol 750 mg tablet 750 mg PO BEDTIME Qty: 7 0RF No Action atorvastatin 40 mg tablet 40 mg PO BEDTIME metoprolol succinate 50 mg tablet extended release 24 hr 50 mg PO DAILY aspirin 81 mg tablet,delayed release (DR/EC) 81 mg PO DAILY pantoprazole 40 mg tablet,delayed release (DR/EC) 40 mg PO DAILY@0630 mirtazapine 30 mg tablet 30 mg PO BEDTIME glucose 4 gram tablet,chewable 16 g PO TID PRN (Reason: diabetes mellitus) Rx Instructions: if blood sugar is 70 or lower fluticasone propionate 50 mcg/actuation spray,suspension 2 spray intranasal DAILY Rx Instructions: 2 sprays each nostril pregabalin 200 mg capsule 200 mg PO BID ranolazine 1,000 mg tablet extended release 12 hr 1,000 mg PO BID Baqsimi 3 mg/actuation spray,non-aerosol 3 mg intranasal DAILY PRN (Reason: Hypoglycemia) Kerendia 10 mg tablet 10 mg PO DAILY nitroglycerin 0.4 mg tablet, sublingual 0.4 mg sublingual USEASDIRECTD PRN (Reason: Chest Pain) albuterol sulfate [Ventolin HFA] 90 mcg/actuation HFA aerosol inhaler 2 puff inhalation Q6H PRN (Reason: wheezing) insulin glargine [Lantus Solostar U-100 Insulin] 100 unit/mL (3 mL) insulin pen 48 unit subcut DAILY@0730 insulin lispro 100 unit/mL insulin pen 12 - 14 unit subcut BID-TID acetaminophen 325 mg Tablet 975 mg PO TID Qty: 10 0RF polyethylene glycol 3350 17 gram Powder In Packet 17 g PO DAILY PRN (Reason: Constipation) Qty: 30 0RF tamsulosin 0.4 mg Capsule 0.4 mg PO BEDTIME Qty: 30 0RF docusate sodium 100 mg Capsule 100 mg PO BEDTIME Qty: 30 0RF amoxicillin-pot clavulanate 875-125 mg tablet 1 tab PO BID Qty: 25 0RF Robitussin Cough-Sore Throat 325-10 mg/10 mL liquid 20 ml PO Q4H PRN (Reason: cough) Qty: 118 0RF lidocaine 4 % adhesive patch,medicated 1 patch topical DAILY PRN (Reason: pain (scale score 4-6)) Qty: 10 0RF (DME) zuly Misc See Rx Instructions .ROUTE .MEDSUPPLY Qty: 1 0RF Rx Instructions: As directed fluconazole [Diflucan] 200 mg tablet 200 mg PO DAILY Qty: 14 0RF phenazopyridine [Pyridium] 200 mg tablet 200 mg PO TID PRN (Reason: pain) Qty: 6 0RF acetaminophen [Tylenol Extra Strength] 500 mg tablet 1,000 mg PO Q8H PRN (Reason: pain) Qty: 30 0RF oxycodone 5 mg tablet 5 mg PO Q6H PRN (Reason: severe pain (scale score 7-10)) Qty: 7 0RF Rx Instructions: Partial Fill upon patient request. Print Language: [place]i
[2024-05-26 13:11] LABS: Basophils Percent Auto 0.2 % (0-2); Eosinophils Absolute Auto 0.1 X10*3/uL (0.0-0.4); Eosinophils Percent Auto 0.4 % (0-4); Hematocrit 45.7 % (42.0-52.0); Hemoglobin 15.5 g/dl (14.0-18.0); Imm Gran Abs Auto 0.37 X10*3/uL (0.00-0.03); Imm Gran Pct Auto 2.1 % (0.0-0.4); Lymphocytes Percent Auto 63.8 % (20-40); MANUAL DIFF FLAG SCAN; Mean Corpuscular HGB Conc 33.9 g/dl (31.0-36.0); Mean Corpuscular Hemoglobin 30.8 pg (27.0-33.0); Mean Corpuscular Volume 90.9 fL (80.0-98.0); Mean Platelet Volume 10.2 fL (9.4-12.4); Monocytes Absolute Auto 0.9 X10*3/uL (0.1-1.2); Monocytes Percent Auto 4.8 % (2-11); Neutrophils Absolute Auto 5.2 x10*3/uL (2.0-8.3); Neutrophils Percent Auto 28.7 % (45-73); Platelet Count 116 X10*3/uL (160-400); Red Blood Count 5.03 X10*6/uL (4.60-5.80); Red Cell Distribution Width 15.9 % (11.0-16.0); SCAN SMEAR FLAG 1
[2024-05-26 13:12] LABS: Lymphocytes Absolute Auto 11.5 X10*3/uL (1.2-4.9)
[2024-05-26 13:23] LABS: Alanine Aminotransferase 22 U/L (0-40); Albumin Level 3.8 g/dL (3.5-5.0); Alkaline Phosphatase 121 U/L (39-117); Anion Gap 10 (12-20); Aspartate Amino Transferase 11 U/L (5-37); Blood Urea Nitrogen 27 mg/dL (9-16); Calcium 9.1 mg/dL (8.4-10.2); Carbon Dioxide 27 mmol/L (22-29); Chloride 101 mmol/L (96-108); Creatinine Clr Calc Pharmacy 70.8; Estimated Glomerular Filt Rate 51; Glucose Random 200 mg/dL (60-115); Lipase 38 U/L (8-78); Potassium 4.5 mmol/L (3.3-5.1); Sodium 133 mmol/L (135-145)
[2024-05-26 13:40] LABS: SLIDE REVIEW VERIFIED
[2024-05-26 15:49] VITALS: BP 123/80; PULSE 60; RESP 18; TEMP 36.6; O2SAT 94
[2024-05-26] MEDS: Ketorolac Tromethamine 15 MG/ML VIAL IM (16:31)
--- NOTE | 2024-05-26 16:37 | PC.NURSE ---
pt a&ox3, vss, labs previously drawn, pt self caths-obtained urine per order. pt medicated for 7-8/10 rt flank pain that radiates up his back. pt awaiting radiology results, call morocho within reach, will continue to monitor
[2024-05-26 16:51] LABS: Appearance Urine Cloudy; Color Urine Yellow; Glucose Urine UA 500 mg/dL (Negative); Leukocyte Esterase Urine Large (3+) (Negative); Nitrite Urine Negative (Negative); UMIC TRIGGER UACC YES; Urine Blood Negative (Negative); Urine Ketones Negative (Negative); Urine Protein Trace mg/dL (Neg-Trace)
[2024-05-26 16:56] LABS: Bacteria Urine 4+ (None Seen); Hyaline Casts Urine 0-2 /LPF (0-2); RBC Urine 0-2 /HPF (0-2); Squamous Epithelial Cell Urine 0-2 /HPF (0-2); UACC Culture Trigger YES; WBC Urine >50 /HPF (0-5)
--- NOTE | 2024-05-26 18:02 | PC.NURSE ---
patient a&ox3, pt previously medicated for rt flank pain which has reduced to 4/10, pt sitting at bedside, awaiting results, call morocho within reach, will continue to monitor
[2024-05-26 18:36] VITALS: BP 99/68; PULSE 61; RESP 18; TEMP 36.1; O2SAT 97
[2024-05-26 18:37] VITALS: BP 99/68; PULSE 61; RESP 18; TEMP 36.1; O2SAT 97
== END 2024-05-26 18:38 | disposition home or self-care (01) ==
PROVIDERS: Nurse Practitioner Family; Emergency Provider Student in an Organized Health Care Education/Training Program
DX: M47.819 Spondylosis without myelopathy or radiculopathy, site unspecified (principal); R10.9 Unspecified abdominal pain; C91.10 Chronic lymphocytic leukemia of B-cell type not having achieved remission; N31.9 Neuromuscular dysfunction of bladder, unspecified; E11.22 Type 2 diabetes mellitus with diabetic chronic kidney disease; I12.9 Hypertensive chronic kidney disease with stage 1 through stage 4 chronic kidney disease, or unspecified chronic kidney disease; N18.9 Chronic kidney disease, unspecified
CPT/HCPCS: 36415; 74176; 80053; 81001; 83690; 85025; 87086; 87088; 87186; 96372; 99284; J1885

== ENCOUNTER 2024-06-02 11:12 | Emergency (ER) | payer MEDICAID, SELFPAY ==
[2024-06-02 11:15] VITALS: BP 115/64; PULSE 62; RESP 16; TEMP 37.1; O2SAT 98; BMI 38.0
--- NOTE | 2024-06-02 11:21 | ED_ITS ---
HPI - General Adult General Chief complaint: Urogenital-Male Stated complaint: nausea Time Seen by Provider: 06/02/24 11:27 Source: patient Mode of arrival: ambulatory Limitations: no limitations History of Present Illness ED Provider: Aby Alex NP HPI narrative: patient is a 63-year-old male who presents emergency department for evaluation of 2 days of nausea and persistent right flank pain as well as dysuria. Reports he was seen in the emergency department last week, reports that a prescription for an antibiotic was sent to his pharmacy afterwards which he started taking 2 days ago for urinary tract infection, after starting the medication he then developed nausea. he also states that his pain to the right flank feels slightly worse than when he was initially evaluated. He denies any associated fevers, chills, vomiting, upper abdominal pain, left-sided abdominal pain, constipation, diarrhea, hematuria. Related Data Home Medications ?Medication ?Instructions ?Recorded ?Confirmed albuterol sulfate 90 mcg/actuation 2 puff inhalation Q6H PRN wheezing 04/14/24 04/14/24 aerosol inhaler (Ventolin HFA) aspirin 81 mg tablet,delayed 81 mg PO DAILY 04/14/24 04/14/24 release atorvastatin 40 mg tablet 40 mg PO BEDTIME 04/14/24 04/14/24 finerenone 10 mg tablet (Kerendia) 10 mg PO DAILY 04/14/24 04/14/24 fluticasone propionate 50 2 spray intranasal DAILY 04/14/24 04/14/24 mcg/actuation nasal spray,suspension glucagon 3 mg/actuation nasal 3 mg intranasal DAILY PRN 04/14/24 04/14/24 spray (Baqsimi) Hypoglycemia glucose 4 gram chewable tablet 16 g PO TID PRN diabetes mellitus 04/14/24 04/14/24 insulin glargine 100 unit/mL (3 48 unit subcut DAILY@0730 04/14/24 04/14/24 mL) subcutaneous pen (Lantus Solostar U-100 Insulin) insulin lispro 100 unit/mL 12 - 14 unit subcut BID-TID 04/14/24 04/14/24 subcutaneous pen metoprolol succinate 50 mg 50 mg PO DAILY 04/14/24 04/14/24 tablet,extended release 24 hr mirtazapine 30 mg tablet 30 mg PO BEDTIME 04/14/24 04/14/24 nitroglycerin 0.4 mg sublingual 0.4 mg sublingual USEASDIRECTD PRN 04/14/24 04/14/24 tablet Chest Pain pantoprazole 40 mg tablet,delayed 40 mg PO DAILY@0630 04/14/24 04/14/24 release pregabalin 200 mg capsule 200 mg PO BID neuropathy 04/14/24 04/14/24 ranolazine 1,000 mg 1,000 mg PO BID 04/14/24 04/14/24 tablet,extended release,12 hr Previous Rx's ?Medication ?Instructions ?Recorded acetaminophen 325 mg tablet 975 mg (3 x 325 mg) PO TID #10 tabs 04/17/24 acetaminophen 325 mg-DM 10 mg/10 20 ml PO Q4H PRN cough #118 mL 04/17/24 mL oral liquid (Robitussin Cough-Sore Throat) amoxicillin 875 mg-potassium 1 tab PO BID #25 tabs 04/17/24 clavulanate 125 mg tablet docusate sodium 100 mg capsule 100 mg PO BEDTIME #30 caps 04/17/24 lidocaine 4 % topical patch 1 patch topical DAILY PRN pain 04/17/24 (scale score 4-6) #10 ea polyethylene glycol 3350 17 gram 17 g PO DAILY PRN Constipation #30 04/17/24 oral powder packet ea tamsulosin 0.4 mg capsule 0.4 mg PO BEDTIME #30 caps 04/17/24 walker #1 ea 04/17/24 fluconazole 200 mg tablet 200 mg PO DAILY #14 tabs 04/24/24 (Diflucan) phenazopyridine 200 mg tablet 200 mg PO TID PRN pain 6 doses #6 04/24/24 (Pyridium) tabs acetaminophen 500 mg tablet 1,000 mg (2 x 500 mg) PO Q8H PRN 05/09/24 (Tylenol Extra Strength) pain #30 tabs oxycodone 5 mg tablet 5 mg PO Q6H PRN severe pain (scale 05/09/24 score 7-10) #7 tabs methocarbamol 750 mg tablet 750 mg PO BEDTIME #7 tabs 05/26/24 nitrofurantoin 100 mg PO Q12H 7 days #14 caps 05/30/24 monohydrate/macrocrystals 100 mg capsule (Macrobid) levofloxacin 750 mg tablet 750 mg PO DAILY #7 tabs 06/02/24 Allergies Allergy/AdvReac Type Severity Reaction Status Date / Time Sulfa (Sulfonamide Allergy Rash Verified 06/02/24 11:15 Antibiotics) ticagrelor [From Brilinta] Allergy Abdominal Verified 06/02/24 11:15 Pain Review of Systems 2 Review of Systems: Yes all other systems are reviewed and are negative PMFSH Past Medical History Attestation statement: The following information was validated with the patient. Source: old records reviewed Medical History CLL (chronic lymphocytic leukemia) Frequent UTI Neurogenic bladder Coronary artery disease Diabetes Hyperlipidemia Hypertension Social History Social History Household Members: Family Household Members Other:: patient lives with his sister and her son who is 27yrs old. Do you presently have visiting nurse or other home services: No Alcohol intake: current Alcohol intake frequency: holidays/special occasions only Alcohol type: wine and other Patient Tobacco Use Status: Former Tobacco user Tobacco use type: Cigarette Smoked in Last 30 Days: No Second Hand Smoke Exposure: No Use of substances other than those prescribed or required for medical reasons: No Substance Use Type: Marijuana Advance Directives: No Advance Directives Information Provided: Yes Do you have a plan to hurt others: No Plan service: No Physical Exam ED Vital Signs: Vital Signs - 24 hr 06/02/24 11:15 06/02/24 13:13 Temperature 98.7 F 96.9 F Pulse Rate 62 60 Respiratory Rate 16 18 Blood Pressure 115/64 110/57 L Pulse Oximetry 98 98 Oxygen Delivery Method Room Air BMI result Body Mass Index 38.0 Appearance: Alert.?Oriented to person, place and time. No acute distress.?Normal affect. CVS: Heart sounds normal. Normal heart rate and rhythm.? Pulses normal.?? Respiratory: No respiratory distress.? Lung sounds clear to auscultation bilaterally?? Abdomen: Soft and non-tender. Normoactive bowel sounds. Positive right CVAT Skin: Skin warm and dry.? Normal skin color.? ? Extremities: No lower extremity edema.? No calf ttp? Neuro: Moves all extremities spontaneously. Sensation intact bilaterally. Ambulates with normal steady gait. Course Course Course Narrative: RME, this is a rapid medical exam performed by Byron Granger please refer to primary provider for complete H&P- 63-year-old male presents for evaluation of nausea. The patient has a history of neurogenic bladder and self catheterizes. He was seen here a week ago and his urine culture ended up growing Enterococcus. He was prescribed nitrofurantoin b.i.d. x7 days which you started 2 days ago. He reports he developed the nausea after starting this medication. Plan for repeat labs, urinalysis and an EKG Reevaluation(s) Reevaluation #1: CBC reveals leukocytosis of 14,600, with mild thrombocytopenia which is improved when compared to prior platelet counts, no anemia. No electrolyte derangement. No KALEY. No lactic acidosis. Minimally elevated lipase at 78 , alk-phos is elevated at 151 which has been seen on prior, otherwise unremarkable LFTs. tolerating oral intake. Discussed plan of care for discontinuing Macrobid at this time and initiating Levaquin. Discussed strict return precautions. All questions answered. Stable for discharge Medications Administered Discontinued Medications Generic Name Dose Route Start Last Admin Trade Name Freq PRN Reason Stop Dose Admin Ondansetron HCl 4 mg 06/02/24 12:06 06/02/24 12:14 Ondansetron Odt 4 Mg Tab.Rapdis TRANSLINGU 06/02/24 12:07 4 mg ONCE ONE Administration Medical Decision Making Medical Decision Making [facility] Narrative: patient is a 63-year-old male presenting to emergency department for evaluation of right flank pain, dysuria, persistent nausea with onset yesterday as per HPI. He was evaluated in the emergency department 05/26/2024, at the time he was experiencing right flank pain which was thought to be musculoskeletal, he was discharged with methocarbamol, on 05/30/2024 his urine culture grew Enterococcus for which Macrobid prescription was sent to his pharmacy, he started taking this 2 days ago and nausea started thereafter. At the time of examination he appears well, he is afebrile without tachycardia, no respiratory distress. His abdominal examination is overall benign except for mild right CVAT. Although he has been experiencing nausea he has been able to tolerate eating and drinking normally without vomiting. Given his history of recurrent UTIs, and his CVAT associated with known urinary tract infection, I do have concern for pyelonephritis. he has no lactic acidosis, does not meet SIRS crietera, do not suspect sepsis at this time. Given concern for pyelonephritis he may be better suited for treatment with fluoroquinolones such as levofloxacin 750 mg daily for 5 days based on his urine culture. Differential Diagnosis Differential Diagnoses: The differential diagnosis associated with the presentation includes ( urinary tract infection, pyelonephritis, ureteral calculi, hydronephrosis, gastritis, medication side effect) Admission/Observation Consideration of admission/observation: Escalation of care including admission/observation considered ( see narrative above and course narrative for further detail) Lab Data MDM Lab Attestation statement: I reviewed the patient's lab results. ( See course narrative) 06/02/24 11:37 06/02/24 11:37 Labs: Lab Results 06/02/24 06/02/24 Range/Units 11:37 12:17 WBC 14.6 H (4.8-10.8) X10*3/uL RBC 4.90 (4.60-5.80) X10*6/uL Hgb 15.4 (14.0-18.0) g/dl Hct 45.5 (42.0-52.0) % MCV 92.9 (80.0-98.0) fL MCH 31.4 (27.0-33.0) pg MCHC 33.8 (31.0-36.0) g/dl RDW 15.9 (11.0-16.0) % Plt Count 144 L (160-400) X10*3/uL MPV 10.3 (9.4-12.4) fL Immature Gran % (Auto) Cancelled Neut % (Auto) Cancelled Lymph % (Auto) Cancelled [place] % (Auto) Cancelled Eos % (Auto) Cancelled Baso % (Auto) Cancelled Lymph # (Auto) Cancelled [place] # (Auto) Cancelled Eos # (Auto) Cancelled Baso # (Auto) Cancelled Abs Immat Gran (auto) Cancelled Absolute Neuts (auto) Cancelled Absolute Nucleated RBC 0.000 (0.0-0.012) X10*3/uL Nucleated RBC % (auto) 0.0 (0.0-0.2) /100WBC Neutrophils % (Manual) 27 L (45-73) % Band Neutrophils % 1 L (3-5) % Lymphocytes % (Manual) 62 H (20-40) % Atypical Lymphs % (Man) 8 H (0-6) % Monocytes % (Manual) 1 L (2-11) % Metamyelocytes % 1 % Abs Neuts (Manual) 4.1 (2.0-8.3) X10*3/uL Lymphocytes # (Manual) 9.1 H (1.2-4.9) X10*3/uL Atyp Lymphs # (Manual) 1.2 x10*3/uL Monocytes # (Manual) 0.1 (0.1-1.2) X10*3/uL Metamyelocytes # 0.1 X10*3/uL Platelet Estimate SLIGHTLY DECREASED (NORMAL) Large Platelets PRESENT Plt Morphology Comment NOTED RBC Morphology NORMAL Sodium 139 (135-145) mmol/L Potassium 4.1 (3.3-5.1) mmol/L Chloride 104 (96-108) mmol/L Carbon Dioxide 25 (22-29) mmol/L Anion Gap 14 (12-20) BUN 22 H (9-16) mg/dL Creatinine 1.28 (0.5-1.4) mg/dL Estim Creat Clear Calc 78.7 Estimated GFR 57 Random Glucose 240 H (60-115) mg/dL Lactic Acid 1.5 (0.5-2.0) mmol/L Calcium 9.6 (8.4-10.2) mg/dL Total Bilirubin 0.5 (0.0-1.0) mg/dL AST 13 (5-37) U/L ALT 20 (0-40) U/L Alkaline Phosphatase 151 H (39-117) U/L Total Protein 6.1 L (6.5-8.0) g/dL Albumin 3.9 (3.5-5.0) g/dL Lipase 80 H (8-78) U/L Urine Color Yellow Urine Appearance Cloudy Urine pH 6.5 (5.0-9.0) Ur Specific [place] 1.010 (1.005-1.025) Urine Protein Negative (Neg-Trace) mg/dL Urine Glucose (UA) 500 H (Negative) mg/dL Urine Ketones Negative (Negative) mg/dL Urine Blood Negative (Negative) Urine Nitrite Negative (Negative) Ur Leukocyte Esterase Large (3+) H (Negative) Urine RBC 0-2 (0-2) /HPF Urine WBC >50 H (0-5) /HPF Ur Squamous Epith Cells 0-2 (0-2) /HPF Urine Bacteria 2+ (None Seen) Hyaline Casts 0-2 (0-2) /LPF Independent Interpretation I performed an independent interpretation of an: EKG Interpretation: Rate: 60 Rhythm:? normal sinus rhythm Normal P waves.? Normal ANGE.?? Normal QRS complex.?? ST T wave :?? no ST elevation, no ST depression qTC:444 prior studies:? February of 2024 The study has been interpreted contemporaneously by me. Discharge Plan Discharge Clinical Impression: Acute pyelonephritis Patient Disposition: Home, Self-Care Instructions: Kidney Infection (ED) Additional Instructions: as discussed I have concern that infection may have traveled to the kidney based on your symptoms and urinary tract infection. Your blood work today is reassuring. Your kidneys do not appear greatly impacted from this at this time as blood work is normal. Local you were able to tolerate eating and drinking, please be sure that you are staying well hydrated. At this time I recommend that you stop taking the Macrobid, an antibiotic that you were previously prescribed for the urinary tract infection. A prescription for a new antibiotic has been sent to your pharmacy ; levofloxacin. It is important to take precautions while on this type of antibiotic as it can sometimes have an impact on your tendons, refrain from any excessive exercise, running, jumping. If you develop pain or swelling near joints, or popping sensations particularly your ankle you should seek evaluation. if you develop new or worsening symptoms or concerns such as fevers, shaking chills, inability to tolerate oral intake, worsening pain, hematuria, inability to urinate, nausea persistent vomiting you should seek re-evaluation. Prescriptions: New levofloxacin 750 mg tablet 750 mg PO DAILY Qty: 7 0RF No Action atorvastatin 40 mg tablet 40 mg PO BEDTIME metoprolol succinate 50 mg tablet extended release 24 hr 50 mg PO DAILY aspirin 81 mg tablet,delayed release (DR/EC) 81 mg PO DAILY pantoprazole 40 mg tablet,delayed release (DR/EC) 40 mg PO DAILY@0630 mirtazapine 30 mg tablet 30 mg PO BEDTIME glucose 4 gram tablet,chewable 16 g PO TID PRN (Reason: diabetes mellitus) Rx Instructions: if blood sugar is 70 or lower fluticasone propionate 50 mcg/actuation spray,suspension 2 spray intranasal DAILY Rx Instructions: 2 sprays each nostril pregabalin 200 mg capsule 200 mg PO BID ranolazine 1,000 mg tablet extended release 12 hr 1,000 mg PO BID Baqsimi 3 mg/actuation spray,non-aerosol 3 mg intranasal DAILY PRN (Reason: Hypoglycemia) Kerendia 10 mg tablet 10 mg PO DAILY nitroglycerin 0.4 mg tablet, sublingual 0.4 mg sublingual USEASDIRECTD PRN (Reason: Chest Pain) albuterol sulfate [Ventolin HFA] 90 mcg/actuation HFA aerosol inhaler 2 puff inhalation Q6H PRN (Reason: wheezing) insulin glargine [Lantus Solostar U-100 Insulin] 100 unit/mL (3 mL) insulin pen 48 unit subcut DAILY@0730 insulin lispro 100 unit/mL insulin pen 12 - 14 unit subcut BID-TID acetaminophen 325 mg Tablet 975 mg PO TID Qty: 10 0RF polyethylene glycol 3350 17 gram Powder In Packet 17 g PO DAILY PRN (Reason: Constipation) Qty: 30 0RF tamsulosin 0.4 mg Capsule 0.4 mg PO BEDTIME Qty: 30 0RF docusate sodium 100 mg Capsule 100 mg PO BEDTIME Qty: 30 0RF amoxicillin-pot clavulanate 875-125 mg tablet 1 tab PO BID Qty: 25 0RF Robitussin Cough-Sore Throat 325-10 mg/10 mL liquid 20 ml PO Q4H PRN (Reason: cough) Qty: 118 0RF lidocaine 4 % adhesive patch,medicated 1 patch topical DAILY PRN (Reason: pain (scale score 4-6)) Qty: 10 0RF (DME) [facility] [place] See Rx Instructions .ROUTE .MEDSUPPLY Qty: 1 0RF Rx Instructions: As directed fluconazole [Diflucan] 200 mg tablet 200 mg PO DAILY Qty: 14 0RF phenazopyridine [Pyridium] 200 mg tablet 200 mg PO TID PRN (Reason: pain) Qty: 6 0RF acetaminophen [Tylenol Extra Strength] 500 mg tablet 1,000 mg PO Q8H PRN (Reason: pain) Qty: 30 0RF oxycodone 5 mg tablet 5 mg PO Q6H PRN (Reason: severe pain (scale score 7-10)) Qty: 7 0RF Rx Instructions: Partial Fill upon patient request. methocarbamol 750 mg tablet 750 mg PO BEDTIME Qty: 7 0RF nitrofurantoin monohyd/m-cryst [Macrobid] 100 mg capsule 100 mg PO Q12H 7 Days Qty: 14 0RF Rx Instructions: must administer with a meal/food Referrals: Physician,Unknown J [Primary Care Provider] - Interventions: ED Discharge Assessment Last Done: 06/02/24 13:13 Discharge Date/Time: 06/02/24 12:50 Print Language: Macedonian
--- NOTE | 2024-06-02 11:25 | ECG_ITS ---
Test Reason : NAUSEA Blood Pressure : / mmHG Vent. Rate : 060 BPM Atrial Rate : 060 BPM P-R Int : 146 ms QRS Dur : 100 ms QT Int : 444 ms P-R-T Axes : 067 046 067 degrees QTc Int : 444 ms Normal sinus rhythm Normal ECG When compared with ECG of 15-FEB-2024 08:47, No significant change was found Referred By: Ike Granger Electronically Signed By:BLAKE CHERRY MD
[2024-06-02 11:48] LABS: Hematocrit 45.5 % (42.0-52.0); Hemoglobin 15.4 g/dl (14.0-18.0); Mean Corpuscular HGB Conc 33.8 g/dl (31.0-36.0); Mean Corpuscular Hemoglobin 31.4 pg (27.0-33.0); Mean Corpuscular Volume 92.9 fL (80.0-98.0); Mean Platelet Volume 10.3 fL (9.4-12.4); Platelet Count 144 X10*3/uL (160-400); Red Cell Distribution Width 15.9 % (11.0-16.0); White Blood Count 14.6 X10*3/uL (4.8-10.8)
[2024-06-02 11:57] LABS: Lactic Acid 1.5 mmol/L (0.5-2.0)
[2024-06-02 11:58] LABS: Alanine Aminotransferase 20 U/L (0-40); Albumin Level 3.9 g/dL (3.5-5.0); Alkaline Phosphatase 151 U/L (39-117); Anion Gap 14 (12-20); Aspartate Amino Transferase 13 U/L (5-37); Bilirubin Total 0.5 mg/dL (0.0-1.0); Blood Urea Nitrogen 22 mg/dL (9-16); Calcium 9.6 mg/dL (8.4-10.2); Carbon Dioxide 25 mmol/L (22-29); Chloride 104 mmol/L (96-108); Creatinine Clr Calc Pharmacy 78.7; Estimated Glomerular Filt Rate 57; Glucose Random 240 mg/dL (60-115); Lipase 80 U/L (8-78); Potassium 4.1 mmol/L (3.3-5.1); Sodium 139 mmol/L (135-145); Total Protein 6.1 g/dL (6.5-8.0)
[2024-06-02] MEDS: Ondansetron ODT 4 MG TAB.RAPDIS TRANSLINGU (12:14)
--- NOTE | 2024-06-02 12:14 | PC.NURSE ---
PT PMH neurogenic bladder, has been straight cathing himself for years, given straight cath kit for urine sample.
[2024-06-02 12:26] LABS: Appearance Urine Cloudy; Color Urine Yellow; Glucose Urine UA 500 mg/dL (Negative); Leukocyte Esterase Urine Large (3+) (Negative); Nitrite Urine Negative (Negative); PH 6.5 (5.0-9.0); UMIC TRIGGER UACC YES; Urine Blood Negative (Negative); Urine Ketones Negative (Negative); Urine Protein Negative (Neg-Trace)
[2024-06-02 12:28] LABS: Bacteria Urine 2+ (None Seen); Hyaline Casts Urine 0-2 /LPF (0-2); RBC Urine 0-2 /HPF (0-2); Squamous Epithelial Cell Urine 0-2 /HPF (0-2); UACC Culture Trigger YES; WBC Urine >50 /HPF (0-5)
[2024-06-02 12:58] LABS: Atypical Lymph Absolute Manual 1.2 x10*3/uL; Atypical Lymphs Percent Manual 8 % (0-6); Band Neutrophils Percent 1 % (3-5); Lymphocytes Absolute Manual 9.1 X10*3/uL (1.2-4.9); Lymphocytes Percent Manual 62 % (20-40); Metamyelocytes Absolute 0.1 X10*3/uL; Metamyelocytes Percent 1 %; Monocytes Absolute Manual 0.1 X10*3/uL (0.1-1.2); Monocytes Percent Manual 1 % (2-11); Neutrophils Absolute Manual 4.1 X10*3/uL (2.0-8.3); Neutrophils Percent Manual 27 % (45-73)
[2024-06-02 13:00] LABS: Large Platelet PRESENT; Platelet Estimate SLIGHTLY DECREASED (NORMAL); Platelet Morphology Comment NOTED; RBC Morphology NORMAL
[2024-06-02 13:13] VITALS: BP 110/57; PULSE 60; RESP 18; TEMP 36.1; O2SAT 98
== END 2024-06-02 12:50 | disposition home or self-care (01) ==
PROVIDERS: Physician Assistant; Emergency Provider Emergency Medicine
DX: N10 Acute pyelonephritis (principal); R11.0 Nausea
CPT/HCPCS: 36415; 80053; 81001; 83605; 83690; 85007; 85027; 87040; 87086; 87088; 87186; 93005; 99283; 99284

== ENCOUNTER → 2024-06-02 11:25 | Outpatient (BNV) | payer MEDICAID, SELFPAY | PROVIDERS: Emergency Provider Emergency Medicine; Visit Provider Internal Medicine Cardiovascular Disease | DX: R11.0 Nausea (principal) | CPT/HCPCS: 93010 ==

== ENCOUNTER 2024-06-17 11:02 | Inpatient (IN) | payer MEDICAID, SELFPAY ==
[2024-06-17] VITALS (18 sets, daily range): BP systolic 70–105; BP diastolic 29–68; PULSE 64–98; RESP 12–21; TEMP 36.3–37.7; O2SAT 89–97; BMI 38.0
--- NOTE | ~2024-06-17 | XR_ITS ---
EXAMINATION: XR CHEST CLINICAL INFORMATION: Chest pain, shortness of breath, rule out pneumonia COMPARISON: Chest x-ray on 04/15/2024 TECHNIQUE: Frontal view of the chest was obtained. FINDINGS: The cardiac silhouette is normal. There is mild diffuse bronchial wall thickening. There are no areas of consolidation. There are no pleural effusions or pneumothoraces. The bones and soft tissues are unremarkable for the patient's age. XR/XR chest 1V IMPRESSION: Bronchial wall thickening may be infectious and/or inflammatory in etiology. Electronically signed by: Jeannine Benitez MD 06/17/2024 02:05 PM JOAO SEGURA
--- NOTE | ~2024-06-17 | CT_ITS ---
EXAMINATION: CT CHEST, ABDOMEN, AND PELVIS WITH CONTRAST CLINICAL INFORMATION: Hypotension. History of pyelonephritis. Evaluate for infection. COMPARISON: May 26, 2024 and April 13, 2024. TECHNIQUE: Multidetector volumetric CT imaging of the chest, abdomen, and pelvis was obtained after the administration of 100 mL of Omnipaque 300 intravenous contrast without immediate adverse reactions. Axial MIP volume rendering provided. Sagittal and coronal reformatted images were obtained. This CT examination was performed using dose optimization techniques as appropriate, variously including the following: *Automated exposure control *Adjustment of mA and/or kV according to patient size (this includes techniques or standardized protocols for targeted exams where dose is matched to indication/reason for exam; i.e. extremities or head) *Use of iterative reconstruction technique DLP: 512. mGy-cm FINDINGS: LUNGS: The lungs are clear with no evidence of inflammation or nodules. MEDIASTINUM: The mediastinum appears unremarkable. CORONARY ARTERY CALCIFICATION: Question LAD vascular stent versus calcification. PLEURA: There is no pleural effusion. No pleural mass or thickening. AXILLA: No lymphadenopathy by size criteria. LIVER, GALLBLADDER, AND BILIARY TREE: The liver appears unremarkable in shape and attenuation. It is upper normal in size, measuring approximately 18 cm in sagittal dimension. No focal hepatic lesion or biliary ductal dilatation is appreciated. Unremarkable appearance of the gallbladder. PANCREAS: Unremarkable SPLEEN: Measures 17.4 cm in sagittal dimension, having measured approximately 16.5 cm on May 26, 2024. No focal splenic mass identified. ADRENAL GLANDS: Unremarkable KIDNEYS AND URETERS: Question approximately 2.8 cm, solid, round, slightly hyperdense right mid renal lesion (image 40, series 11), not otherwise characterized. 1.1 cm or less benign bilateral simple renal cysts. The kidneys otherwise appear unremarkable in size, shape, and attenuation. No hydronephrosis, hydroureter, or calculi seen. BLADDER: Distended. GASTROINTESTINAL TRACT: Question mild, long segment, concentric thickening involving much of the colon. No significant induration of adjacent fat. Few, scattered colonic diverticula without evidence of diverticulitis. Normal-appearing distal ileum and vermiform appendix. Approximately 1.2 cm diverticulum involving the second portion of duodenum, without evidence of associated inflammation. Unremarkable appearance of the stomach. ABDOMINAL WALL: No significant hernia is appreciated. LYMPH NODES: No evidence of adenopathy by size criteria. VASCULAR: Unremarkable. PELVIC VISCERA: Unremarkable OSSEOUS STRUCTURES: Degenerative changes of the spine. Old, healed right rib fractures anteriorly. CT/CT abdomen pelvis wo IV con IMPRESSION: Question approximately 2.8 cm, solid, round, slightly hyperdense right mid renal lesion, not otherwise characterized. Neoplasm cannot be excluded, benign or malignant. Contrast-enhanced MRI performed on a nonemergent basis is recommended for further evaluation. Distended urinary bladder, possibly neurogenic. Recommend clinical correlation. Question mild, long segment, concentric thickening involving much of the colon. No significant induration of adjacent fat. Cannot confirm or exclude very mild or early colitis. Splenomegaly. Additional findings as above. Electronically signed by: Lavon Garcias MD 06/17/2024 05:51 PM EST
--- NOTE | ~2024-06-17 | US_ITS ---
EXAMINATION: US TRIPLEX LOWER EXTREMITY, BILATERAL CLINICAL INFORMATION: Bilateral lower extremity pain. COMPARISON: None available. TECHNIQUE: Color-flow triplex imaging with spectral analysis and compression Doppler were performed on the bilateral lower extremities. FINDINGS: Respiratory variation, normal compression and augmented flow are noted throughout the bilateral lower extremities. The visualized common femoral vein, superficial femoral vein, profunda femoral vein, popliteal vein and midcalf peroneal and posterior tibial venous segments show no evidence of deep venous thrombosis bilaterally. There is no Brooks's cyst. US/US venous duplex LE BI IMPRESSION: No evidence of deep venous thrombosis involving the bilateral lower extremities. Electronically signed by: Lavon Garcias MD 06/17/2024 07:18 PM EST
--- NOTE | 2024-06-17 11:07 | ECG_ITS ---
Test Reason : chest pain Blood Pressure : / mmHG Vent. Rate : 073 BPM Atrial Rate : 073 BPM P-R Int : 142 ms QRS Dur : 096 ms QT Int : 406 ms P-R-T Axes : 049 042 062 degrees QTc Int : 447 ms Normal sinus rhythm Normal ECG When compared with ECG of 02-JUN-2024 11:39, No significant change was found Referred By: Generic ED Physician Electronically Signed By:Garett Fountain
--- NOTE | 2024-06-17 11:13 | ED_ITS ---
HPI - Chest Pain General Chief Complaint: Chest Pain Stated Complaint: chest pain Time Seen by Provider: 06/17/24 11:47 Source: patient Mode of arrival: ambulatory Limitations: no limitations History of Present Illness ED Provider: Dr. Ba Zambrano HPI narrative: 63-year-old male with a history of coronary artery disease with MO 3 years prior and 1 stent, diabetes mellitus, CLL, chronic kidney disease, asthma, COPD, congestive heart failure, atrial fibrillation who presents emergency department for evaluation of chest pain. The patient states that since 08:30 hours he was had 3 episodes of brief chest pain which lasts 1-2 minutes. Describes the pain is a tightness as if a belt as a wrapped around his upper chest. Patient also states that there is a sharp component to the pain. The pain radiates to his left arm. Patient states he has had similar pain over the past 1-2 weeks and he has been taking nitroglycerin for it. 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 He states that this will be his 3rd cardiac catheterization and that he did not get a stent after his 2nd cardiac catheterization. Patient states that he was feeling short of breath and having dyspnea on exertion but this is chronic. Denied fever, chills, cough, nausea, vomiting, diarrhea, change in his bowel movements. Patient was having chest pain at the time of my evaluation. Related Data Home Medications ?Medication ?Instructions ?Recorded ?Confirmed albuterol sulfate 90 mcg/actuation 2 puff inhalation Q6H PRN wheezing 04/14/24 04/14/24 aerosol inhaler (Ventolin HFA) aspirin 81 mg tablet,delayed 81 mg PO DAILY 04/14/24 04/14/24 release atorvastatin 40 mg tablet 40 mg PO BEDTIME 04/14/24 04/14/24 finerenone 10 mg tablet (Kerendia) 10 mg PO DAILY 04/14/24 04/14/24 fluticasone propionate 50 2 spray intranasal DAILY 04/14/24 04/14/24 mcg/actuation nasal spray,suspension glucagon 3 mg/actuation nasal 3 mg intranasal DAILY PRN 04/14/24 04/14/24 spray (Baqsimi) Hypoglycemia glucose 4 gram chewable tablet 16 g PO TID PRN diabetes mellitus 04/14/24 04/14/24 insulin glargine 100 unit/mL (3 48 unit subcut DAILY@0730 04/14/24 04/14/24 mL) subcutaneous pen (Lantus Solostar U-100 Insulin) insulin lispro 100 unit/mL 12 - 14 unit subcut BID-TID 04/14/24 04/14/24 subcutaneous pen metoprolol succinate 50 mg 50 mg PO DAILY 04/14/24 04/14/24 tablet,extended release 24 hr mirtazapine 30 mg tablet 30 mg PO BEDTIME 04/14/24 04/14/24 nitroglycerin 0.4 mg sublingual 0.4 mg sublingual USEASDIRECTD PRN 04/14/24 04/14/24 tablet Chest Pain pantoprazole 40 mg tablet,delayed 40 mg PO DAILY@0630 04/14/24 04/14/24 release pregabalin 200 mg capsule 200 mg PO BID neuropathy 04/14/24 04/14/24 ranolazine 1,000 mg 1,000 mg PO BID 04/14/24 04/14/24 tablet,extended release,12 hr Previous Rx's ?Medication ?Instructions ?Recorded acetaminophen 325 mg tablet 975 mg (3 x 325 mg) PO TID #10 tabs 04/17/24 acetaminophen 325 mg-DM 10 mg/10 20 ml PO Q4H PRN cough #118 mL 04/17/24 mL oral liquid (Robitussin Cough-Sore Throat) amoxicillin 875 mg-potassium 1 tab PO BID #25 tabs 04/17/24 clavulanate 125 mg tablet docusate sodium 100 mg capsule 100 mg PO BEDTIME #30 caps 04/17/24 lidocaine 4 % topical patch 1 patch topical DAILY PRN pain 04/17/24 (scale score 4-6) #10 ea polyethylene glycol 3350 17 gram 17 g PO DAILY PRN Constipation #30 04/17/24 oral powder packet ea tamsulosin 0.4 mg capsule 0.4 mg PO BEDTIME #30 caps 04/17/24 walker #1 ea 04/17/24 fluconazole 200 mg tablet 200 mg PO DAILY #14 tabs 04/24/24 (Diflucan) phenazopyridine 200 mg tablet 200 mg PO TID PRN pain 6 doses #6 04/24/24 (Pyridium) tabs acetaminophen 500 mg tablet 1,000 mg (2 x 500 mg) PO Q8H PRN 05/09/24 (Tylenol Extra Strength) pain #30 tabs oxycodone 5 mg tablet 5 mg PO Q6H PRN severe pain (scale 05/09/24 score 7-10) #7 tabs methocarbamol 750 mg tablet 750 mg PO BEDTIME #7 tabs 05/26/24 nitrofurantoin 100 mg PO Q12H 7 days #14 caps 05/30/24 monohydrate/macrocrystals 100 mg capsule (Macrobid) levofloxacin 750 mg tablet 750 mg PO DAILY #7 tabs 06/02/24 Allergies Allergy/AdvReac Type Severity Reaction Status Date / Time heparin Allergy Nausea and Verified 06/17/24 11:19 Vomiting Sulfa (Sulfonamide Allergy Rash Verified 06/17/24 11:18 Antibiotics) ticagrelor [From Brilinta] Allergy Abdominal Verified 06/17/24 11:18 Pain Review of Systems 2 Review of Systems: Yes all other systems are reviewed and are negative [facility] Past Medical History [facility] Narrative: Social history: The patient denies tobacco use. He states he occasionally drinks alcohol. He occasionally smokes marijuana. Medical History CLL (chronic lymphocytic leukemia) Frequent UTI Neurogenic bladder Coronary artery disease Diabetes Hyperlipidemia Hypertension Social History Social History Household Members: Family Household Members Other:: patient lives with his sister and her son who is 27yrs old. Do you presently have visiting nurse or other home services: No Alcohol intake: current Alcohol intake frequency: holidays/special occasions only Alcohol type: wine and other Patient Tobacco Use Status: Former Tobacco user Tobacco use type: Cigarette Second Hand Smoke Exposure: No Substance Use Type: Marijuana Advance Directives: No Advance Directives Information Provided: Yes Do you have a plan to hurt others: No Plan service: No Physical Exam 2 Vital Signs: Vital Signs: Last Vital Signs Temp 98.3 F 06/17/24 20:02 Pulse 68 06/17/24 20:56 Resp 16 06/17/24 20:56 BP 105/64 06/17/24 20:56 Pulse Ox 93 06/17/24 20:56 O2 Del Method Room Air 06/17/24 20:56 O2 Flow Rate 2 06/17/24 18:29 BMI result Body Mass Index 38.0 Vital signs did reveal hypotension with a systolic blood pressure of 89. Exam: General: Awake, alert in no distress, weight 120 kg. Elevated BMI of 38 kg per m2. Head: Normocephalic, atraumatic EENT: PERRL, Lids normal, sclera normal, conjunctiva normal, nose normal , ears normal, throat without erythema or exudates Neck: Supple, no adenopathy Lung: breath sounds symmetric, no wheezing, rales or rhonchi Chest: symmetric movement, nontender Heart: regular rate and rhythm, normal S1, S2 no murmurs or rubs Abdomen: soft, non-tender, nondistended, normal bowel sounds Back: no vertebral tenderness, no CVAT Extremities: no deformities, moves all extremities symmetrically Neuro: Awake, alert, oriented, normal speech, cranial nerves intact, moves all extremities symmetrically Psych: Pleasant, cooperative Course Course Course Narrative: This is a rapid medical exam. Deferred additional HPI, ROS, PE to primary provider. 63 yo male with history of CLL, CAD with stenting, HTN, HLD, IDDM, CKD here with chest pain with waking, bilateral leg swelling, fatigue. Of note, has been having some intermittent chest pain relieved with NTG for several weeks and has outpatient cardiac cath 06/27 at [facility]. Will obtain labs, EKG, CXR BP 90/64 in triage. Sindy Darby APRN Reevaluation(s) Reevaluation #1: Patient received in sign-out at change of shift pending re-evaluation, imaging. I evaluated the patient I added on ultrasounds of the lower extremity as he reported asymmetric left lower extremity swelling. The ultrasounds were negative for DVT. The CT scan of his chest without IV contrast shows a right mid renal lesion that is poorly characterized on the noncontrast study. Distended urinary bladder, possibly neurogenic, this is consistent with his known history as well as possible UTI. CT scan of the abdomen pelvis shows questionable mild colitis but the patient has no clinical findings consistent with this. His most recent blood pressure is 105/64, we will discuss with the hospitalist for admission Time: 20:57 Medications Administered Discontinued Medications Generic Name Dose Route Start Last Admin Trade Name Freq PRN Reason Stop Dose Admin Ceftriaxone Sodium 1 gm 06/17/24 16:33 06/17/24 17:30 Ceftriaxone Sodium 1 Gm Vial IVPUSH 06/17/24 16:34 1 gm ONCE ONE Administration Fentanyl 50 mcg 06/17/24 13:00 06/17/24 13:12 Fentanyl Citrate/Pf 100 Mcg/2 Ml Vial IVPUSH 06/17/24 13:01 50 mcg ONCE ONE Administration Protocol Sodium Chloride 1,000 mls @ 999 mls/hr 06/17/24 11:48 06/17/24 13:15 Ns IV 06/17/24 12:48 Infused .Q1H1M STA Infusion Lactated Ringer's 500 mls @ 999 mls/hr 06/17/24 14:00 06/17/24 14:17 Lr IV 06/17/24 14:30 Infused .Q31M MONICA Infusion Sodium Chloride 1,000 mls @ 999 mls/hr 06/17/24 16:18 06/17/24 18:00 Ns IV 06/17/24 17:18 Infused .Q1H1M STA Infusion Lactated Ringer's 1,000 mls @ 999 mls/hr 06/17/24 16:33 06/17/24 17:18 Lr IV 06/17/24 17:33 Not Given .Q1H1M STA Medical Decision Making Medical Decision Making MDM Narrative: 63-year-old male with a history of coronary artery disease with MO 3 years prior and 1 stent, diabetes mellitus, CLL, chronic kidney disease, asthma, COPD, congestive heart failure, atrial fibrillation who presents emergency department for evaluation of tightness like chest pain chest pain across his upper chest, 3 intermittent episodes this morning lasting 1-2 minutes each associated with left arm pain. Patient has had similar episodes of chest pain over the last 1-2 weeks in his scheduled for cardiac catheterization on 06/27/2024 at [facility]. Physical examination did reveal low blood pressure otherwise was unremarkable. Differential diagnosis: ?Includes but is not limited to myocardial infarction, myocardial ischemia, costochondritis, musculoskeletal pain, anemia, electrolyte abnormalities Course: 12:59 My interpretation patient's laboratory evaluation as follows: WBC elevated 16,500-chronic. Thrombocytopenia with a platelet count of 127-chronic. BUN creatinine elevated 23 and 1.57 which is consistent with the patient's chronic kidney disease. Glucose elevated 162. Alk-phos elevated 122. Troponin was below detectable limits. Chest x-ray revealed no acute disease. Twelve EKG revealed significant abnormalities. Patient was given fentanyl 50 mg IV for his pain and normal saline 1 L IV for hypotension. I will repeat a 3 hour troponin at 14:30 hours. 16:51 The patient's 3 hour troponin was also below detectable limits which is reassuring suggesting the patient's chest pain is not caused by myocardial infarction or injury. Patient however has had low blood pressures that have not responded to 2 L of normal saline IV. The patient was treated on 06/02/2024 for pyelonephritis secondary to E coli which was pansensitive and he was treated with Levaquin 750 mg daily for 5 days. He has a neurogenic bladder and does self catheterize himself which makes him at increased risk for urinary tract infections. He also states that over the last week whenever he stands up be does feel dizzy for 10-15 minutes but then it resolves. The patient was not on any antihypertensive medications or medications that could lower his blood pressure. At this point of time I am concerned that the patient may have an infectious process as the cause of his hypotension and the patient was made a code sepsis. I ordered blood cultures x2 lactic acid and 1/3 L of normal saline IV. I I also ordered CT chest abdomen and pelvis without IV contrast to look for possible source of infection. Patient will be treated with ceftriaxone 1 g IV. He was also given another dose of fentanyl 50 mg IV for his chest pain. At the end of my shift, patient's care was turned over to my colleague, physician junior assistant manager. Ike Granger Admission/Observation Consideration of admission/observation: Escalation of care including admission/observation considered (Yes) Lab Data MDM Lab Attestation statement: I reviewed the patient's lab results. 06/17/24 11:34 06/17/24 11:34 Labs: Lab Results 06/17/24 06/17/24 06/17/24 Range/Units 11:34 13:13 14:00 WBC 16.5 H (4.8-10.8) X10*3/uL RBC 4.60 (4.60-5.80) X10*6/uL Hgb 14.4 (14.0-18.0) g/dl Hct 42.7 (42.0-52.0) % MCV 92.8 (80.0-98.0) fL MCH 31.3 (27.0-33.0) pg MCHC 33.7 (31.0-36.0) g/dl RDW 15.6 (11.0-16.0) % Plt Count 127 L (160-400) X10*3/uL MPV 10.4 (9.4-12.4) fL Immature Gran % (Auto) 3.3 H (0.0-0.4) % Neut % (Auto) 41.6 L (45-73) % Lymph % (Auto) 50.2 H (20-40) % Hunt % (Auto) 4.3 (2-11) % Eos % (Auto) 0.2 (0-4) % Baso % (Auto) 0.4 (0-2) % Lymph # (Auto) 8.3 H (1.2-4.9) X10*3/uL Hunt # (Auto) 0.7 (0.1-1.2) X10*3/uL Eos # (Auto) 0.0 (0.0-0.4) X10*3/uL Baso # (Auto) 0.1 (0.0-0.2) X10*3/uL Abs Immat Gran (auto) 0.55 H (0.00-0.03) X10*3/uL Absolute Neuts (auto) 6.9 (2.0-8.3) x10*3/uL Absolute Nucleated RBC 0.000 (0.0-0.012) X10*3/uL Nucleated RBC % (auto) 0.0 (0.0-0.2) /100WBC Smear Tech's Comments VERIFIED PT 12.0 (10.9-12.4) SEC INR 1.0 (0.9-1.1) Sodium 139 (135-145) mmol/L Potassium 4.0 (3.3-5.1) mmol/L Chloride 100 (96-108) mmol/L Carbon Dioxide 27 (22-29) mmol/L Anion Gap 16 (12-20) BUN 23 H (9-16) mg/dL Creatinine 1.57 H (0.5-1.4) mg/dL Estim Creat Clear Calc 64.2 Estimated GFR 45 POC Glucose 124 H (60-115) mg/dL Random Glucose 162 H (60-115) mg/dL Lactic Acid (0.5-2.0) mmol/L Calcium 9.6 (8.4-10.2) mg/dL Total Bilirubin 1.0 (0.0-1.0) mg/dL Direct Bilirubin 0.3 (0.0-0.5) mg/dL AST 19 (5-37) U/L ALT 17 (0-40) U/L Alkaline Phosphatase 122 H (39-117) U/L Troponin I High Sens < 2.7 < 2.7 (<3.5-35.0) ng/L C-Reactive Protein 1.87 H (< or = 0.50) mg/dL Total Protein 6.4 L (6.5-8.0) g/dL Albumin 3.9 (3.5-5.0) g/dL Urine Color Urine Appearance Urine pH (5.0-9.0) Ur Specific [place] (1.005-1.025) Urine Protein (Neg-Trace) mg/dL Urine Glucose (UA) (Negative) mg/dL Urine Ketones (Negative) mg/dL Urine Blood (Negative) Urine Nitrite (Negative) Ur Leukocyte Esterase (Negative) Urine RBC (0-2) /HPF Urine WBC (0-5) /HPF Ur Squamous Epith Cells (0-2) /HPF Urine Bacteria (None Seen) Hyaline Casts (0-2) /LPF 06/17/24 06/17/24 Range/Units 16:37 17:24 WBC (4.8-10.8) X10*3/uL RBC (4.60-5.80) X10*6/uL Hgb (14.0-18.0) g/dl Hct (42.0-52.0) % MCV (80.0-98.0) fL MCH (27.0-33.0) pg MCHC (31.0-36.0) g/dl RDW (11.0-16.0) % Plt Count (160-400) X10*3/uL MPV (9.4-12.4) fL Immature Gran % (Auto) (0.0-0.4) % Neut % (Auto) (45-73) % Lymph % (Auto) (20-40) % Hunt % (Auto) (2-11) % Eos % (Auto) (0-4) % Baso % (Auto) (0-2) % Lymph # (Auto) (1.2-4.9) X10*3/uL Hunt # (Auto) (0.1-1.2) X10*3/uL Eos # (Auto) (0.0-0.4) X10*3/uL Baso # (Auto) (0.0-0.2) X10*3/uL Abs Immat Gran (auto) (0.00-0.03) X10*3/uL Absolute Neuts (auto) (2.0-8.3) x10*3/uL Absolute Nucleated RBC (0.0-0.012) X10*3/uL Nucleated RBC % (auto) (0.0-0.2) /100WBC Smear Tech's Comments PT (10.9-12.4) SEC INR (0.9-1.1) Sodium (135-145) mmol/L Potassium (3.3-5.1) mmol/L Chloride (96-108) mmol/L Carbon Dioxide (22-29) mmol/L Anion Gap (12-20) BUN (9-16) mg/dL Creatinine (0.5-1.4) mg/dL Estim Creat Clear Calc Estimated GFR POC Glucose (60-115) mg/dL Random Glucose (60-115) mg/dL Lactic Acid 1.5 (0.5-2.0) mmol/L Calcium (8.4-10.2) mg/dL Total Bilirubin (0.0-1.0) mg/dL Direct Bilirubin (0.0-0.5) mg/dL AST (5-37) U/L ALT (0-40) U/L Alkaline Phosphatase (39-117) U/L Troponin I High Sens (<3.5-35.0) ng/L C-Reactive Protein (< or = 0.50) mg/dL Total Protein (6.5-8.0) g/dL Albumin (3.5-5.0) g/dL Urine Color Yellow Urine Appearance Turbid Urine pH 6.0 (5.0-9.0) Ur Specific [place] <= 1.005 (1.005-1.025) Urine Protein Negative (Neg-Trace) mg/dL Urine Glucose (UA) Negative (Negative) mg/dL Urine Ketones Negative (Negative) mg/dL Urine Blood Small (1+) H (Negative) Urine Nitrite Negative (Negative) Ur Leukocyte Esterase Large (3+) H (Negative) Urine RBC 0-2 (0-2) /HPF Urine WBC >50 H (0-5) /HPF Ur Squamous Epith Cells 0-2 (0-2) /HPF Urine Bacteria Trace (None Seen) Hyaline Casts 0-2 (0-2) /LPF Independent Interpretation I performed an independent interpretation of an: EKG and Plain X-Ray Interpretation: My independent interpretation the patient's 12 EKG done at 11:02 hours is as follows: Normal sinus rhythm rate of 73, normal UT interval, QRS duration QTC interval, no ST segment elevation, no ST segment depression, no significant T- wave abnormalities, no PACs, no PVCs-this is a normal EKG My independent interpretation patient's chest x-ray is as follows: No acute disease Radiology Impression Discussion of test interpretation with radiology: I have reviewed the radiologist's reading. Radiologist Impression: XR chest 1V IMPRESSION: Bronchial wall thickening may be infectious and/or inflammatory in etiology. Electronically signed by: Jeannine Benitez MD 06/17/2024 02:05 PM EST Critical Care Time Critical Care Time Critical Care Time: Yes Total Critical Care Time: 45 Attestation: Critical Care: The patient was critically ill with a high probability of imminent or life threatening deterioration. I spent greater than 30 minutes of discontinuous time evaluating the patient,delivering critical care at the bedside, discussing and evaluating pertinent data with consultants. Critical care time does not include time spent performing separately billable procedures or teaching. Total time spent performing critical care was 45 minutes. Discharge Plan Discharge Clinical Impression: Chest pain, Dizziness, Acute hypotension Patient Disposition: Admitted As Inpatient Print Language: Emirati
[2024-06-17 11:40] LABS: Basophils Absolute Auto 0.1 X10*3/uL (0.0-0.2); Basophils Percent Auto 0.4 % (0-2); Eosinophils Percent Auto 0.2 % (0-4); Hematocrit 42.7 % (42.0-52.0); Hemoglobin 14.4 g/dl (14.0-18.0); Imm Gran Abs Auto 0.55 X10*3/uL (0.00-0.03); Imm Gran Pct Auto 3.3 % (0.0-0.4); Lymphocytes Percent Auto 50.2 % (20-40); MANUAL DIFF FLAG SCAN; Mean Corpuscular HGB Conc 33.7 g/dl (31.0-36.0); Mean Corpuscular Hemoglobin 31.3 pg (27.0-33.0); Mean Corpuscular Volume 92.8 fL (80.0-98.0); Mean Platelet Volume 10.4 fL (9.4-12.4); Monocytes Absolute Auto 0.7 X10*3/uL (0.1-1.2); Monocytes Percent Auto 4.3 % (2-11); Neutrophils Absolute Auto 6.9 x10*3/uL (2.0-8.3); Neutrophils Percent Auto 41.6 % (45-73); Platelet Count 127 X10*3/uL (160-400); Red Cell Distribution Width 15.6 % (11.0-16.0); SCAN SMEAR FLAG 1; White Blood Count 16.5 X10*3/uL (4.8-10.8)
[2024-06-17 11:41] LABS: Lymphocytes Absolute Auto 8.3 X10*3/uL (1.2-4.9)
[2024-06-17] MEDS: 0.9 % Sodium Chloride 1,000 ML 999 ML IV ×2 (11:52→16:34)
--- NOTE | 2024-06-17 11:52 | PC.NURSE ---
patient noted to be hypotensive, ED provider made aware , bolus NS ordered, medicated per MAR
[2024-06-17 12:07] LABS: Troponin-I High Sensitivity < 2.7 ng/L (<3.5-35.0)
[2024-06-17 12:10] LABS: Alanine Aminotransferase 17 U/L (0-40); Albumin Level 3.9 g/dL (3.5-5.0); Alkaline Phosphatase 122 U/L (39-117); Anion Gap 16 (12-20); Aspartate Amino Transferase 19 U/L (5-37); Bilirubin Direct 0.3 mg/dL (0.0-0.5); Blood Urea Nitrogen 23 mg/dL (9-16); Calcium 9.6 mg/dL (8.4-10.2); Carbon Dioxide 27 mmol/L (22-29); Chloride 100 mmol/L (96-108); Creatinine Clr Calc Pharmacy 64.2; Estimated Glomerular Filt Rate 45; Glucose Random 162 mg/dL (60-115); Sodium 139 mmol/L (135-145); Total Protein 6.4 g/dL (6.5-8.0)
[2024-06-17 12:25] LABS: SLIDE REVIEW VERIFIED
[2024-06-17] MEDS: fentaNYL citrate/PF 100 MCG/2 ML VIAL 50 MCG IVPUSH (13:12)
[2024-06-17 13:16] LABS: Glucose, Whole Blood 124 mg/dL (60-115)
[2024-06-17] MEDS: Lactated Ringers 500 ML 999 ML IV (13:49)
[2024-06-17 15:33] LABS: Troponin-I High Sensitivity < 2.7 ng/L (<3.5-35.0)
[2024-06-17 16:46] LABS: Appearance Urine Turbid; Color Urine Yellow; Glucose Urine UA Negative (Negative); Leukocyte Esterase Urine Large (3+) (Negative); Nitrite Urine Negative (Negative); Specific Gravity - Urine <= 1.005 (1.005-1.025); UMIC TRIGGER UACC YES; Urine Blood Small (1+) (Negative); Urine Ketones Negative (Negative); Urine Protein Negative (Neg-Trace)
[2024-06-17 17:02] LABS: Bacteria Urine Trace (None Seen); Hyaline Casts Urine 0-2 /LPF (0-2); RBC Urine 0-2 /HPF (0-2); Squamous Epithelial Cell Urine 0-2 /HPF (0-2); UACC Culture Trigger YES; WBC Urine >50 /HPF (0-5)
[2024-06-17] MEDS: cefTRIAXone sodium 1 GM VIAL IVPUSH (17:30)
--- NOTE | 2024-06-17 17:32 | PC.NURSE ---
patient iv abx delayed admin due to pt in ct scan and difficult lab draw
[2024-06-17 17:51] LABS: Lactic Acid 1.5 mmol/L (0.5-2.0)
[2024-06-17 20:14] LABS: C Reactive Protein 1.87 mg/dL (< or = 0.50)
--- NOTE | 2024-06-17 21:55 | PM.IMHP ---
History of Present Illness Date of Service: 06/17/24 Attending physician on admission: Caitlyn Rees Chief Complaint: chest pain, weakness Patient is a 63-year-old with a past medical history significant for neurogenic bladder with chronic UTIs, CAD, UT (years ago), insulin-dependent diabetes, CLL, CKD, mild persistent asthma/COPD CHF, paroxysmal AFib and LAQUITA on CPAP, who presented to the ED with dizziness and weakness for the week, new chest pain starting this morning. He reports chronic shortness of breath which has been worsening but not significant over the past few days. He is scheduled for a cardiac catheterization at [facility] next week with his communication instructor. He reports that the chest pain comes and goes and is higher up in the chest and describes it as burning. He is unsure if it is related to heartburn or acid reflux. He has been eating and drinking at home but has not eaten since arriving here today. He self catheterizes due to a neurogenic bladder with unknown etiology. He denies any change in his urine including blood or odor. He was recently treated for pyelonephritis on 06/02/2024 with nitrofurantoin and he reports he took the full course. He is also complaining of lower abdominal discomfort. He has no other concerns including cough, runny nose, congestion, fever or chills. Review of Systems Constitutional: Constitutional: Denies chills, Denies fever(s) and Denies headache(s) Eyes: Eyes: Denies change in vision ENT: Reports dizziness, Denies headache(s), Denies nasal congestion, Denies nasal discharge and Denies sore throat Cardiovascular: Cardiovascular: Reports as per HPI, Reports chest pain, Denies rapid heart rate and Reports dyspnea on exertion Respiratory: Respiratory: Denies chest congestion, Denies cough, Reports dyspnea on exertion and Denies wheezing Gastrointestinal: Gastrointestinal: Denies diarrhea, Denies nausea and Denies vomiting Genitourinary: Genitourinary: Denies hematuria, Denies oliguria and Denies urinary incontinence Musculoskeletal: Musculoskeletal: Denies numbness and Denies tingling Integumentary/Breasts: Skin/Breast: Denies rash Neurologic: Denies confusion, Reports dizziness, Denies headache(s), Denies numbness and Denies tingling Psychiatric: Psychiatric: Denies confusion Hematologic/Lymphatic: Hematologic/Lymphatic: Denies easy bleeding Allergic/Immunologic: Allergic/Immunologic: Denies wheezing [facility] Medical History CLL (chronic lymphocytic leukemia) Frequent UTI Neurogenic bladder Coronary artery disease Diabetes Hyperlipidemia Hypertension Functional capacity: uses cane/walker Social History Household Members: Family Household Members Other:: patient lives with his sister and her son who is 27yrs old. Do you presently have visiting nurse or other home services: No Alcohol intake: current Alcohol intake frequency: holidays/special occasions only Alcohol type: wine and other Patient Tobacco Use Status: Former Tobacco user Tobacco use type: Cigarette Second Hand Smoke Exposure: No Substance Use Type: Marijuana Advance Directives: No Advance Directives Information Provided: Yes Do you have a plan to hurt others: No Plan Nutrition Risks: No Nutritional Risk service: No Narrative: no etoh, or smoking. rare marijuana for back pain. Meds Allergies Allergy/AdvReac Type Severity Reaction Status Date / Time heparin Allergy Nausea and Verified 06/17/24 11:19 Vomiting Sulfa (Sulfonamide Allergy Rash Verified 06/17/24 11:18 Antibiotics) ticagrelor [From Brilinta] Allergy Abdominal Verified 06/17/24 11:18 Pain Active Medications: Current Medications Acetaminophen (Acetaminophen 325 Mg Tablet) 650 mg PO Q6H PRN PRN Reason: Pain, Mild (Pain Scale 1-3), fever or headache Al Hydroxide/Mg Hydroxide (Magnesium Hydrox/Alum Hydrox 30 Ml Oral.Susp) 30 ml PO Q4H PRN PRN Reason: Heartburn Lactated Ringer's (Lr) 1,000 mls @ 100 mls/hr IVCONT .Q10H MONICA Melatonin (Melatonin 3 Mg Tablet) 6 mg PO BEDTIME PRN PRN Reason: Insomnia Morphine Sulfate (Morphine Sulfate 4 Mg/Ml Cartridge) 2 mg IVPUSH Q4H PRN; Protocol PRN Reason: Pain, Severe (Pain Scale 7-10) Ondansetron HCl (Ondansetron Hcl 4 Mg/2 Ml Vial) 4 mg IVPUSH Q8H PRN PRN Reason: Nausea and Vomiting Oxycodone HCl (Oxycodone Hcl Immed Release 5 Mg Tablet) 5 mg PO Q6H PRN PRN Reason: Pain, Moderate(Pain Scale 4-6) Polyethylene Glycol (Polyethylene Glycol 3350 17 Gm Powd.Pack) 17 gm PO DAILY PRN PRN Reason: Constipation Home Medications ?Medication ?Instructions ?Recorded ?Confirmed ?Last Taken ?Type albuterol sulfate 90 mcg/actuation 2 puff inhalation Q6H PRN wheezing 04/14/24 04/14/24 Unknown History aerosol inhaler (Ventolin HFA) aspirin 81 mg tablet,delayed 81 mg PO DAILY 04/14/24 04/14/24 04/13/24 History release atorvastatin 40 mg tablet 40 mg PO BEDTIME 04/14/24 04/14/24 04/12/24 History finerenone 10 mg tablet (Kerendia) 10 mg PO DAILY 04/14/24 04/14/24 04/13/24 History fluticasone propionate 50 2 spray intranasal DAILY 04/14/24 04/14/24 04/13/24 History mcg/actuation nasal spray,suspension glucagon 3 mg/actuation nasal 3 mg intranasal DAILY PRN 04/14/24 04/14/24 04/13/24 History spray (Baqsimi) Hypoglycemia glucose 4 gram chewable tablet 16 g PO TID PRN diabetes mellitus 04/14/24 04/14/24 Unknown History insulin glargine 100 unit/mL (3 48 unit subcut DAILY@0730 04/14/24 04/14/24 04/13/24 History mL) subcutaneous pen (Lantus Solostar U-100 Insulin) insulin lispro 100 unit/mL 12 - 14 unit subcut BID-TID 04/14/24 04/14/24 04/12/24 History subcutaneous pen metoprolol succinate 50 mg 50 mg PO DAILY 04/14/24 04/14/24 04/13/24 History tablet,extended release 24 hr mirtazapine 30 mg tablet 30 mg PO BEDTIME 04/14/24 04/14/24 04/12/24 History nitroglycerin 0.4 mg sublingual 0.4 mg sublingual USEASDIRECTD PRN 04/14/24 04/14/24 Unknown History tablet Chest Pain pantoprazole 40 mg tablet,delayed 40 mg PO DAILY@0630 04/14/24 04/14/24 04/13/24 History release pregabalin 200 mg capsule 200 mg PO BID neuropathy 04/14/24 04/14/2404/13/24 History ranolazine 1,000 mg 1,000 mg PO BID 04/14/24 04/14/24 04/13/24 History tablet,extended release,12 hr Physical Exam Vital Signs and Narrative: Vital Signs: Last Vital Signs Temp 98.3 F 06/17/24 20:02 Pulse 68 06/17/24 20:56 Resp 16 06/17/24 20:56 BP 105/64 06/17/24 20:56 Pulse Ox 93 06/17/24 20:56 O2 Del Method Room Air 06/17/24 20:56 O2 Flow Rate 2 06/17/24 18:29 BMI result Body Mass Index 38.0 General: AOx3, no acute distress Resp: CTA bilaterally CVS: S1, S2, RRR GI: +BS, mild tenderness lower abd, no distention Skin: Warm, dry Neuro: Cranial nerves II-XII grossly intact bilaterally. Motor grossly intact bilaterally Extremities: No LE edema Psych: Appropriate affect sepsis focused exam normal Const: General: No confusion Orientation/consciousness: No confusion Neuro: General: No confusion Results Labs 06/17/24 11:34 06/17/24 11:34 Labs: Laboratory Results - last 24 hr 06/17/24 06/17/24 06/17/24 11:34 13:13 14:00 MCV 92.8 MCH 31.3 MCHC 33.7 RDW 15.6 Plt Count 127 L MPV 10.4 Immature Gran % (Auto) 3.3 H Neut % (Auto) 41.6 L Lymph % (Auto) 50.2 H Robeson % (Auto) 4.3 Eos % (Auto) 0.2 Baso % (Auto) 0.4 Lymph # (Auto) 8.3 H Robeson # (Auto) 0.7 Eos # (Auto) 0.0 Baso # (Auto) 0.1 Abs Immat Gran (auto) 0.55 H Absolute Neuts (auto) 6.9 Absolute Nucleated RBC 0.000 Nucleated RBC % (auto) 0.0 Smear Tech's Comments VERIFIED PT 12.0 INR 1.0 Anion Gap 16 Estim Creat Clear Calc 64.2 Estimated GFR 45 POC Glucose 124 H Random Glucose 162 H Lactic Acid Calcium 9.6 Total Bilirubin 1.0 Direct Bilirubin 0.3 AST 19 ALT 17 Alkaline Phosphatase 122 H Troponin I High Sens < 2.7 < 2.7 C-Reactive Protein 1.87 H Total Protein 6.4 L Albumin 3.9 Urine Color Urine Appearance Urine pH Ur Specific [place] Urine Protein Urine Glucose (UA) Urine Ketones Urine Blood Urine Nitrite Ur Leukocyte Esterase Urine RBC Urine WBC Ur Squamous Epith Cells Urine Bacteria Hyaline Casts 06/17/24 06/17/24 16:37 17:24 MCV MCH MCHC RDW Plt Count MPV Immature Gran % (Auto) Neut % (Auto) Lymph % (Auto) Robeson % (Auto) Eos % (Auto) Baso % (Auto) Lymph # (Auto) Rob[place] # (Auto) Eos # (Auto) Baso # (Auto) Abs Immat Gran (auto) Absolute Neuts (auto) Absolute Nucleated RBC Nucleated RBC % (auto) Smear Tech's Comments PT INR Anion Gap Estim Creat Clear Calc Estimated GFR POC Glucose Random Glucose Lactic Acid 1.5 Calcium Total Bilirubin Direct Bilirubin AST ALT Alkaline Phosphatase Troponin I High Sens C-Reactive Protein Total Protein Albumin Urine Color Yellow Urine Appearance Turbid Urine pH 6.0 Ur Specific [place] <= 1.005 Urine Protein Negative Urine Glucose (UA) Negative Urine Ketones Negative Urine Blood Small (1+) H Urine Nitrite Negative Ur Leukocyte Esterase Large (3+) H Urine RBC 0-2 Urine WBC >50 H Ur Squamous Epith Cells 0-2 Urine Bacteria Trace Hyaline Casts 0-2 Imaging Radiologist's Impressions: Impressions Chest X-Ray 06/17/24 12:29 IMPRESSION: Bronchial wall thickening may be infectious and/or inflammatory in etiology. Electronically signed by: Jeannine Benitez MD 06/17/2024 02:05 PM EST RP Abdomen/Pelvis CT 06/17/24 16:51 IMPRESSION: Question approximately 2.8 cm, solid, round, slightly hyperdense right mid renal lesion, not otherwise characterized. Neoplasm cannot be excluded, benign or malignant. Contrast-enhanced MRI performed on a nonemergent basis is recommended for further evaluation. Distended urinary bladder, possibly neurogenic. Recommend clinical correlation. Question mild, long segment, concentric thickening involving much of the colon. No significant induration of adjacent fat. Cannot confirm or exclude very mild or early colitis. Splenomegaly. Additional findings as above. Electronically signed by: Lavon Garcias MD 06/17/2024 05:51 PM EST RP Chest CT 06/17/24 16:51 IMPRESSION: Question approximately 2.8 cm, solid, round, slightly hyperdense right mid renal lesion, not otherwise characterized. Neoplasm cannot be excluded, benign or malignant. Contrast-enhanced MRI performed on a nonemergent basis is recommended for further evaluation. Distended urinary bladder, possibly neurogenic. Recommend clinical correlation. Question mild, long segment, concentric thickening involving much of the colon. No significant induration of adjacent fat. Cannot confirm or exclude very mild or early colitis. Splenomegaly. Additional findings as above. Electronically signed by: Lavon Garcias MD 06/17/2024 05:51 PM EST RP Venous Duplex 06/17/24 18:30 IMPRESSION: No evidence of deep venous thrombosis involving the bilateral lower extremities. Electronically signed by: Lavon Garcias MD 06/17/2024 07:18 PM EST RP Assessment and Plan (1) Sepsis: Status: Acute (2) UTI (urinary tract infection): Status: Acute (3) Chest pain: Status: Acute (4) KALEY (acute kidney injury): Status: Acute Plan Patient is a 63-year-old with a past medical history significant for neurogenic bladder with chronic UTIs, CAD, UT (years ago), insulin-dependent diabetes, HTN, CLL, CKD, mild persistent asthma/COPD CHF, paroxysmal AFib and LAQUITA on CPAP, who presented to the ED with dizziness and weakness for the week, new chest pain starting this morning. Cardiac w/u has been unremarkable, but low BP. Dx: sepsis secondary to UTI sepsis secondary to UTI, not severe - hypotensive with leukocytosis, BP responsive to 3L IVF in ED - lactic acid normal, blood cultures pending - EKG normal, troponins normal - CT chest, abd, pelvis negative aside from lesion on kidney (pt reports it is known and followed) - venous depulex negative for DVT - UA +, cx pending - started on ceftriaxone in ED due to previous urine cultures, continue ceftriaxone - LR 100ml/hr - admit to med tele due to chest pain - monitor CBC, BMP chest pain - CT, EKG and troponins negative - consider non-cardiac sources such as GERD - maalox - monitor with tele during stay - repeat EKG and trops if chest pain returns - monitor BMP borderline KALEY on CKD - given 3L IVF in ED - continue LR 100ml/hr - monitor BMP - avoid nephrotoxins IDDM - SSI - lantus 25U QAM, reduced dose on 38U at home - diabetic diet HTN - hold BP meds p. afib - no a fib on EKG, hold metoprolol - pt not on anticoagulation COPD/asthma unspecified -- no actue exacerbation - continue home inhalers CHF - med rec pending, but not known to be on diuretics LAQUITA - CPAP at night CLL - followed by oncology - aware of kidney lesion, watching no bx done full code VTE prophylaxis: pneumoboots, pt with heparin allergy and refused anticoagulant at last admission Patient with sepsis secondary to UTI requiring admission for IV fluids and monitoring for at least 2 midnights stay. addendum pt's BPs low in ED again. he is laying on his right side and will not roll onto his back for a more accurate BP. not a true accurate low BP. no repeat lactic acid needed. Quality Stroke Does the patient have a stroke diagnosis?: No VTE Prior VTE?: No VTE Risk Level:: Medical - moderate - high VTE Device Contraindication: N/A - Device Ordered VTE Drug Contraindication: Patient Refused
[2024-06-17] MEDS: Lactated Ringers 1,000 ML 100 ML IVCONT (23:31)
--- NOTE | 2024-06-17 23:31 | PC.NURSE ---
RT at bedside to place pt on CPAP for bedtime
[2024-06-18] VITALS (10 sets, daily range): BP systolic 95–120; BP diastolic 44–71; PULSE 63–73; RESP 11–24; TEMP 36.2–36.9; O2SAT 91–94
--- NOTE | 2024-06-18 01:15 | PC.NURSE ---
pt sitting up to self-cath.
--- NOTE | 2024-06-18 02:34 | PC.NURSE ---
Pt continues to lay on his right side causing his blood pressure readings to be low. Pt gets upset every time staff tries to intervene and ask him to lay on his back. GIDEON Root aware.
[2024-06-18 05:48] LABS: Basophils Absolute Auto 0.1 X10*3/uL (0.0-0.2); Basophils Percent Auto 0.4 % (0-2); Eosinophils Percent Auto 0.3 % (0-4); Hematocrit 38.1 % (42.0-52.0); Hemoglobin 12.9 g/dl (14.0-18.0); Imm Gran Abs Auto 0.47 X10*3/uL (0.00-0.03); Lymphocytes Percent Auto 52.9 % (20-40); MANUAL DIFF FLAG SCAN; Mean Corpuscular HGB Conc 33.9 g/dl (31.0-36.0); Mean Corpuscular Hemoglobin 31.7 pg (27.0-33.0); Mean Corpuscular Volume 93.6 fL (80.0-98.0); Monocytes Absolute Auto 0.6 X10*3/uL (0.1-1.2); Monocytes Percent Auto 4.7 % (2-11); Neutrophils Absolute Auto 4.4 x10*3/uL (2.0-8.3); Neutrophils Percent Auto 37.7 % (45-73); Platelet Count 111 X10*3/uL (160-400); Red Blood Count 4.07 X10*6/uL (4.60-5.80); Red Cell Distribution Width 15.7 % (11.0-16.0); SCAN SMEAR FLAG 1; White Blood Count 11.8 X10*3/uL (4.8-10.8)
[2024-06-18 06:03] LABS: Lymphocytes Absolute Auto 6.2 X10*3/uL (1.2-4.9)
[2024-06-18 06:06] LABS: Anion Gap 12 (12-20); Blood Urea Nitrogen 20 mg/dL (9-16); Calcium 8.8 mg/dL (8.4-10.2); Carbon Dioxide 25 mmol/L (22-29); Chloride 108 mmol/L (96-108); Creatinine Clr Calc Pharmacy 68.1; Estimated Glomerular Filt Rate 48; Glucose Random 99 mg/dL (60-115); Potassium 3.8 mmol/L (3.3-5.1); Sodium 141 mmol/L (135-145)
[2024-06-18 06:24] LABS: SLIDE REVIEW VERIFIED
[2024-06-18] MEDS: Lactated Ringers 1,000 ML 125 ML IVCONT ×2 (06:30→15:34)
[2024-06-18 07:59] LABS: Glucose, Whole Blood 105 mg/dL (60-115)
[2024-06-18] MEDS: Morphine Sulfate 4 MG/ML CARTRIDGE 2 MG IVPUSH (08:06)
[2024-06-18] MEDS: ondansetron HCL 4 MG/2 ML VIAL IVPUSH ×2 (08:08→20:55)
--- NOTE | 2024-06-18 10:01 | PHA.MEDREC ---
Addendum entered by Britta Meeks RPh 06/18/24 10:45: reviewed Original Note: Pharmacy Consult ? Medication Reconciliation Pharmacy has completed the medication reconciliation. Spoke to patient to confirm med list Patient was able to confirm yes or no when asked about a medication. Patient states she no longer takes Robitussin Dm, Basqsimi 3 mg , Docusate sodium 100 mg, Lidocaine patches, Oxycodone 5 mg , Pyridum 200 mg, Polyethylene Glycol 3350 , and Tamsulosin 0.4 mg. Patient confirmed Lantus 38 units daily and [place] Lispro is 16-20 units per sliding scale ( patient states he has 2 sliding scales. 1 with meals and the other without meals because he doesn't always eat) . patient states the last time he took his medication was 06/17/24
[2024-06-18 11:45] LABS: Glucose, Whole Blood 104 mg/dL (60-115)
--- NOTE | 2024-06-18 13:38 | P.PNIM_ITS ---
Subjective Subjective Date of Service: 06/18/24 Review of Systems Follow up Sepsis UTI feeling better Physical Exam 2 Vital Signs: Vital Signs: Last Vital Signs Temp 97.1 F 06/18/24 13:20 Pulse 67 06/18/24 13:20 Resp 14 06/18/24 13:20 BP 107/55 L 06/18/24 13:20 Pulse Ox 94 06/18/24 13:20 O2 Del Method Room Air 06/18/24 13:20 O2 Flow Rate 2 06/17/24 18:29 BMI result Body Mass Index 38.0 Appearing in no acute distress lung sounds are clear to auscultation heart regular rate rhythm, clear S1, S2 positive bowel sounds, abdomen is soft, nontender neuro patient is alert x3, no focal deficits Objective Data Active Medications Acetaminophen (Acetaminophen 325 Mg Tablet) 650 mg PO Q6H PRN PRN Reason: Pain, Mild (Pain Scale 1-3), fever or headache Al Hydroxide/Mg Hydroxide (Magnesium Hydrox/Alum Hydrox 30 Ml Oral.Susp) 30 ml PO Q4H PRN PRN Reason: Heartburn Ceftriaxone Sodium (Ceftriaxone Sodium 1 Gm Vial) 1 gm IVPUSH Q24H [facility] Glucose (Glucose Gel 15 Gm Gel..Gram.) 15 gm PO Q15M PRN; Protocol PRN Reason: per Hypoglycemia Standing Ord. Lactated Ringer's (Lr) 1,000 mls @ 125 mls/hr IVCONT .Q8H [facility] Last Admin: 06/18/24 06:30 Dose: 125 mls/hr Documented By: YOLANDA Dextrose ([id number]) 250 mls @ 750 mls/hr IV Q15M PRN; Protocol PRN Reason: per Hypoglycemia Standing Ord. Insulin Glargine (Insulin Glargine,Hum.Rec.Anlog 100 Unit/Ml 10 Ml Vial) 25 unit SUBCUT DAILY [facility] Insulin Human Lispro (Insulin Lispro 100 Unit/Ml 3 Ml Vial) 0 unit SUBCUT QIDACHS [facility]; Protocol Last Admin: 06/18/24 11:43 Dose: Not Given Documented By: ALKA Non-Admin Reason: poc 104 Melatonin (Melatonin 3 Mg Tablet) 6 mg PO BEDTIME PRN PRN Reason: Insomnia Morphine Sulfate (Morphine Sulfate 4 Mg/Ml Cartridge) 2 mg IVPUSH Q4H PRN; Protocol PRN Reason: Pain, Severe (Pain Scale 7-10) Last Admin: 06/18/24 08:06 Dose: 2 mg Documented By: ALKA Ondansetron HCl (Ondansetron Hcl 4 Mg/2 Ml Vial) 4 mg IVPUSH Q8H PRN PRN Reason: Nausea and Vomiting Last Admin: 06/18/24 08:08 Dose: 4 mg Documented By: ALKA Oxycodone HCl (Oxycodone Hcl Immed Release 5 Mg Tablet) 5 mg PO Q6H PRN PRN Reason: Pain, Moderate(Pain Scale 4-6) Polyethylene Glycol (Polyethylene Glycol 3350 17 Gm Powd.Pack) 17 gm PO DAILY PRN PRN Reason: Constipation Labs 06/18/24 05:23 06/18/24 05:23 Labs: Laboratory Results - last 24 hr 06/17/24 06/17/24 06/17/24 11:34 14:00 16:37 MCV MCH MCHC RDW Plt Count MPV Immature Gran % (Auto) Neut % (Auto) Lymph % (Auto) [place] % (Auto) Eos % (Auto) Baso % (Auto) Lymph # (Auto) [place] # (Auto) Eos # (Auto) Baso # (Auto) Abs Immat Gran (auto) Absolute Neuts (auto) Absolute Nucleated RBC Nucleated RBC % (auto) Smear Tech's Comments Anion Gap Estim Creat Clear Calc Estimated GFR POC Glucose Random Glucose Lactic Acid Calcium Troponin I High Sens < 2.7 C-Reactive Protein 1.87 H Urine Color Yellow Urine Appearance Turbid Urine pH 6.0 Ur Specific Spruce <= 1.005 Urine Protein Negative Urine Glucose (UA) Negative Urine Ketones Negative Urine Blood Small (1+) H Urine Nitrite Negative Ur Leukocyte Esterase Large (3+) H Urine RBC 0-2 Urine WBC >50 H Ur Squamous Epith Cells 0-2 Urine Bacteria Trace Hyaline Casts 0-2 06/17/24 06/18/24 06/18/24 17:24 05:23 07:55 MCV 93.6 MCH 31.7 MCHC 33.9 RDW 15.7 Plt Count 111 L MPV 10.0 Immature Gran % (Auto) 4.0 H Neut % (Auto) 37.7 L Lymph % (Auto) 52.9 H [place] % (Auto) 4.7 Eos % (Auto) 0.3 Baso % (Auto) 0.4 Lymph # (Auto) 6.2 H [place] # (Auto) 0.6 Eos # (Auto) 0.0 Baso # (Auto) 0.1 Abs Immat Gran (auto) 0.47 H Absolute Neuts (auto) 4.4 Absolute Nucleated RBC 0.000 Nucleated RBC % (auto) 0.0 Smear Tech's Comments VERIFIED Anion Gap 12 Estim Creat Clear Calc 68.1 Estimated GFR 48 POC Glucose 105 Random Glucose 99 Lactic Acid 1.5 Calcium 8.8 D Troponin I High Sens C-Reactive Protein Urine Color Urine Appearance Urine pH Ur Specific [place] Urine Protein Urine Glucose (UA) Urine Ketones Urine Blood Urine Nitrite Ur Leukocyte Esterase Urine RBC Urine WBC Ur Squamous Epith Cells Urine Bacteria Hyaline Casts 06/18/24 11:41 MCV MCH MCHC RDW Plt Count MPV Immature Gran % (Auto) Neut % (Auto) Lymph % (Auto) [place] % (Auto) Eos % (Auto) Baso % (Auto) Lymph # (Auto) [place] # (Auto) Eos # (Auto) Baso # (Auto) Abs Immat Gran (auto) Absolute Neuts (auto) Absolute Nucleated RBC Nucleated RBC % (auto) Smear Tech's Comments Anion Gap Estim Creat Clear Calc Estimated GFR POC Glucose 104 Random Glucose Lactic Acid Calcium Troponin I High Sens C-Reactive Protein Urine Color Urine Appearance Urine pH Ur Specific [place] Urine Protein Urine Glucose (UA) Urine Ketones Urine Blood Urine Nitrite Ur Leukocyte Esterase Urine RBC Urine WBC Ur Squamous Epith Cells Urine Bacteria Hyaline Casts Microbiology Microbiology Results: Microbiology 06/17/24 Unknown Urine Culture - Preliminary Urine Catheterized - Straight Catheter No growth to date. Assessment and Plan (1) Acute pyelonephritis: Status: Acute Plan Patient is a 63-year-old with a past medical history significant for neurogenic bladder with chronic UTIs, CAD, [place] (years ago), insulin-dependent diabetes, HTN, CLL, CKD, mild persistent asthma/COPD CHF, paroxysmal AFib and LAQUITA on CPAP, who presented to the ED with dizziness and weakness for the week, new chest pain starting this morning. Cardiac w/u has been unremarkable, but low BP. Dx: sepsis secondary to UTI Sepsis secondary to UTI, not severe hypotensive with leukocytosis, BP responsive to 3L IVF in ED lactic acid normal, blood and urine cultures pending EKG normal, troponins normal CT chest, abd, pelvis negative aside from lesion on kidney (pt reports it is known and followed) venous depulex negative for DVT ceftriaxone LR 100ml/hr monitor CBC, BMP chest pain CT, EKG and troponins negative consider non-cardiac sources such as GERD maalox monitor with tele during stay repeat EKG and trops if chest pain returns monitor BMP borderline KALEY on CKD given 3L IVF in ED continue LR 100ml/hr monitor BMP avoid nephrotoxins IDDM SSI lantus 25U QAM, reduced dose on 38U at home diabetic diet HTN hold BP meds p. afib no a fib on EKG, hold metoprolol pt not on anticoagulation COPD/asthma unspecified -- no actue exacerbation continue home inhalers CHF med rec pending, but not known to be on diuretics LAQUITA CPAP at night CLL followed by oncology aware of kidney lesion, watching no bx done full code VTE prophylaxis: pneumoboots, pt with heparin allergy and refused anticoagulant at last admission Patient with sepsis secondary to UTI requiring admission for IV fluids and monitoring for at least 2 midnights stay. addendum pt's BPs low in ED again. he is laying on his right side and will not roll onto his back for a more accurate BP. not a true accurate low BP. no repeat lactic acid needed. Quality Stroke Does the patient have a stroke diagnosis?: No VTE Prior VTE?: No VTE Risk Level:: Medical - moderate - high VTE Device Contraindication: N/A - Device Ordered VTE Drug Contraindication: Patient Refused
[2024-06-18] MEDS: oxyCODONE HCl Immed Release 5 MG TABLET PO ×2 (15:32→20:34)
[2024-06-18] MEDS: cefTRIAXone sodium 1 GM VIAL IVPUSH (15:32)
--- NOTE | 2024-06-18 16:32 | PC.NURSE ---
Sabas Alonzo HIDE STRETCHER HAND regarding patients diet he doesn't eat any poultry, eggs or fish. Patient did not eat breakfast or lunch because he doesn't eat that stuff. Patient also had a soft lumps on top of shoulders left greater than right Cheri HIDE STRETCHER HAND notified.
[2024-06-18 16:42] LABS: Glucose, Whole Blood 128 mg/dL (60-115)
[2024-06-18 18:19] LABS: Glucose, Whole Blood 185 mg/dL (60-115)
[2024-06-18] MEDS: Insulin Lispro 100 UNIT/ML 3 ML VIAL SUBCUT ×2 (18:27→21:45)
[2024-06-18] MEDS: Atorvastatin Calcium 40 MG TABLET PO (20:33)
[2024-06-18] MEDS: KERENDIA 10 MG 10 EACH PO (20:33)
[2024-06-18] MEDS: Mirtazapine 30 MG TABLET PO (20:34)
[2024-06-18] MEDS: Pregabalin 200 MG CAPSULE PO (20:37)
[2024-06-18 21:27] LABS: Glucose, Whole Blood 151 mg/dL (60-115)
[2024-06-19] VITALS: BP 100/54; PULSE 70; RESP 18; TEMP 36.3; O2SAT 96
[2024-06-19] MEDS: Lactated Ringers 1,000 ML 125 ML IVCONT (00:55)
[2024-06-19 03:43] VITALS: BP 106/64; PULSE 65; RESP 18; TEMP 36.3; O2SAT 93
[2024-06-19] MEDS: Omeprazole 20 MG CAPSULE.DR PO (05:19)
[2024-06-19 07:32] LABS: Glucose, Whole Blood 95 mg/dL (60-115)
[2024-06-19 07:52] VITALS: BP 139/76; PULSE 65; RESP 20; TEMP 37.2; O2SAT 93
[2024-06-19] MEDS: Metoprolol Succinate ER 50 MG TAB.ER.24H PO (08:38)
[2024-06-19] MEDS: Insulin Glargine,Hum.rec.anlog 100 UNIT/ML 10 ML VIAL 25 UNIT SUBCUT (08:39)
[2024-06-19] MEDS: Pregabalin 200 MG CAPSULE PO (08:39)
[2024-06-19] MEDS: Aspirin Enteric Coated 81 MG TABLET.DR PO (08:39)
[2024-06-19 08:43] LABS: Basophils Percent Auto 0.4 % (0-2); Eosinophils Absolute Auto 0.1 X10*3/uL (0.0-0.4); Eosinophils Percent Auto 0.5 % (0-4); Hematocrit 38.3 % (42.0-52.0); Hemoglobin 12.5 g/dl (14.0-18.0); Imm Gran Abs Auto 0.33 X10*3/uL (0.00-0.03); Imm Gran Pct Auto 3.5 % (0.0-0.4); Lymphocytes Absolute Auto 5.7 X10*3/uL (1.2-4.9); Lymphocytes Percent Auto 60.2 % (20-40); MANUAL DIFF FLAG SCAN; Mean Corpuscular HGB Conc 32.6 g/dl (31.0-36.0); Mean Corpuscular Hemoglobin 30.9 pg (27.0-33.0); Mean Corpuscular Volume 94.6 fL (80.0-98.0); Mean Platelet Volume 10.3 fL (9.4-12.4); Monocytes Absolute Auto 0.4 X10*3/uL (0.1-1.2); Neutrophils Percent Auto 31.4 % (45-73); Platelet Count 106 X10*3/uL (160-400); Red Blood Count 4.05 X10*6/uL (4.60-5.80); Red Cell Distribution Width 15.6 % (11.0-16.0); SCAN SMEAR FLAG 1; White Blood Count 9.5 X10*3/uL (4.8-10.8)
[2024-06-19] MEDS: KERENDIA 10 MG 10 EACH PO (08:43)
[2024-06-19 08:53] LABS: Anion Gap 11 (12-20); Blood Urea Nitrogen 14 mg/dL (9-16); Calcium 9.1 mg/dL (8.4-10.2); Carbon Dioxide 28 mmol/L (22-29); Chloride 107 mmol/L (96-108); Creatinine Clr Calc Pharmacy 86.1; Estimated Glomerular Filt Rate > 60; Glucose Random 94 mg/dL (60-115); Potassium 4.2 mmol/L (3.3-5.1); Sodium 142 mmol/L (135-145)
--- NOTE | 2024-06-19 09:06 | MHC.CM.PN ---
CM met with Patient at bedside. Patient lives in a house with his Sister/HCP/Rosibel, who will transport to home at time of dc. Patient uses a cane and a walker to assist with mobility, and per SENIOR NETWORK ADMINISTRATOR, will benefit from a PT Eval to assist with mobility. CM has initiated and will follow for dc planning. PCP is Dr. Alex Felipe, in [facility].
--- NOTE | 2024-06-19 09:33 | P.DS_ITS ---
DS: Providers Provider Date of Service: 06/19/24 Date of admission: 06/17/24 21:49 Primary care physician: Unknown Physician DS: Diagnosis Discharge Diagnosis (1) Acute pyelonephritis: Status: Acute DS: Summary Hospital Course Hospital Course: History and physical as per admitting provider. Patient is a 63-year-old with a past medical history significant for neurogenic bladder with chronic UTIs, CAD, [place] (years ago), insulin-dependent diabetes, CLL, CKD, mild persistent asthma/COPD CHF, paroxysmal AFib and LAQUITA on CPAP, who presented to the ED with dizziness and weakness for the week, new chest pain starting this morning. He reports chronic shortness of breath which has been worsening but not significant over the past few days. He is scheduled for a cardiac catheterization at [facility] next week with his commercial technician. He reports that the chest pain comes and goes and is higher up in the chest and describes it as burning. He is unsure if it is related to heartburn or acid reflux. He has been eating and drinking at home but has not eaten since arriving here today. He self catheterizes due to a neurogenic bladder with unknown etiology. He denies any change in his urine including blood or odor. He was recently treated for pyelonephritis on 06/02/2024 with nitrofurantoin and he reports he took the full course. He is also complaining of lower abdominal discomfort. He has no other concerns including cough, runny nose, congestion, fever or chills. 63-year-old man treated for sepsis secondary to urinary tract infection, blood and urine cultures both negative. Patient was treated with IV Rocephin and IV fluids. She will go home with 3 more days of oral Ceftin. Patient also had some chest pain, CT chest EKG and troponins all negative, noncardiac source likely GERD. Treated with Maalox. He also had some borderline KALEY on CKD stage 3 and treated with IV fluids, patient should avoid nephrotoxins. He was noted to have some hypotension during hospitalization and metoprolol was held. Treated with IV fluids blood pressure has remained stable. Diabetes mellitus type 2. Continue home medications Hypertension. Stable on BB Paroxysmal atrial fibrillation no AFib during hospitalization. Continue metoprolol, not on anticoagulation COPD/asthma. No exacerbation during hospitalization. Continue inhalers as needed Obstructive sleep apnea. CPAP at night CLL. Followed by Oncology, aware of kidney lesions, following outpatient Time Attestation Discharge Coordination Time (in mins): 40 Quality: Safe Use of Opioids Does Pt have an Active Cancer Diagnosis on the Problem List?: No Quality: Stroke Does the patient have a stroke diagnosis?: No Physical Exam Vital Signs: Vital Signs: Last Vital Signs Temp 99.0 F 06/19/24 07:52 Pulse 65 06/19/24 07:52 Resp 20 06/19/24 07:52 BP 139/76 06/19/24 07:52 Pulse Ox 93 06/19/24 07:52 O2 Del Method Room Air 06/19/24 07:52 O2 Flow Rate 2 06/17/24 18:29 BMI result Body Mass Index 38.0 Appearing in no acute distress head is normocephalic atraumatic eyes pupils are PERRLA sclera is anicteric mouth throat mucous membranes are intact and moist neck is supple no lymphadenopathy, no JVD noted lung sounds are clear to auscultation heart regular rate rhythm, clear S1, S2 positive bowel sounds, abdomen is soft, nontender neuro patient is alert x3, no focal deficits DS: Data Data Completed and Pending Labs on day of discharge: Laboratory Results - last 24 hr 06/18/24 06/18/24 06/18/24 11:41 16:39 18:15 Sodium Potassium Chloride Carbon Dioxide Anion Gap BUN Creatinine Estim Creat Clear Calc Estimated GFR POC Glucose 104 128 H 185 H Random Glucose Calcium 06/18/24 06/19/24 06/19/24 21:05 07:08 07:52 Sodium 142 Potassium 4.2 Chloride 107 Carbon Dioxide 28 Anion Gap 11 L BUN 14 Creatinine 1.17 Estim Creat Clear Calc 86.1 Estimated GFR > 60 POC Glucose 151 H 95 Random Glucose 94 Calcium 9.1 Preliminary micro results at discharge 06/17/24 17:24 Blood Culture - Preliminary Blood - Venous No growth after 24 hours. 06/17/24 17:22 Blood Culture - Preliminary Blood - Venous No growth after 24 hours. 06/17/24 Unknown Urine Culture - Preliminary Urine Catheterized - Straight Catheter No growth to date. Discharge Plan Discharge Anticipated Discharge Date/Time: 06/19/24 09:21 Patient Disposition: Home, Self-Care Discharge Diagnosis: Sepsis secondary to UTI Chest pain KALEY on CKD stage III Discharge Medications: New cefuroxime axetil 500 mg tablet 500 mg PO BID Qty: 6 0RF insulin glargine [Lantus Solostar U-100 Insulin] 100 unit/mL (3 mL) insulin pen 25 unit SUBCUT DAILY Qty: 15 0RF Continued atorvastatin 40 mg tablet 40 mg PO BEDTIME metoprolol succinate 50 mg tablet extended release 24 hr 50 mg PO DAILY aspirin 81 mg tablet,delayed release (DR/EC) 81 mg PO DAILY pantoprazole 40 mg tablet,delayed release (DR/EC) 40 mg PO DAILY@0630 mirtazapine 30 mg tablet 30 mg PO BEDTIME glucose 4 gram tablet,chewable 16 g PO TID PRN (Reason: diabetes mellitus) Rx Instructions: if blood sugar is 70 or lower fluticasone propionate 50 mcg/actuation spray,suspension 2 spray intranasal DAILY Rx Instructions: 2 sprays each nostril pregabalin 200 mg capsule 200 mg PO BID ranolazine 1,000 mg tablet extended release 12 hr 1,000 mg PO BID Kerendia 10 mg tablet 10 mg PO DAILY nitroglycerin 0.4 mg tablet, sublingual 0.4 mg sublingual USEASDIRECTD PRN (Reason: Chest Pain) albuterol sulfate [Ventolin HFA] 90 mcg/actuation HFA aerosol inhaler 2 puff inhalation Q6H PRN (Reason: wheezing) insulin lispro 100 unit/mL insulin pen 16 - 20 unit subcut BID-TID (DME) zuly [facility] See Rx Instructions .ROUTE .MEDSUPPLY Qty: 1 0RF Rx Instructions: As directed acetaminophen [Tylenol Extra Strength] 500 mg tablet 1,000 mg PO Q8H PRN (Reason: pain) Qty: 30 0RF methocarbamol 750 mg tablet 750 mg PO BEDTIME Qty: 7 0RF Discontinued insulin glargine [Lantus Solostar U-100 Insulin] 100 unit/mL (3 mL) insulin pen 38 unit subcut DAILY@0730 Discharge Orders: Discharge Order (Routine); Ordered 06/19/24 Ordered By: Cheri Haile Diet: Advance to usual diet Activity on Discharge: As tolerated Stand Alone Forms: Patient Portal Discharge page Print Language: [place] Island[place] Care Plan Goals: Lantus dose decreased to 25 units daily Health Concerns: Sepsis secondary to UTI Chest pain KALEY on CKD stage III Plan of Treatment: Follow-up with primary care provider as needed Take all medications as prescribed Assessment: See discharge summary
[2024-06-19] MEDS: Fluticasone Propionate Nasal 16 GM SPRAY 2 SPRAY NOSTRIL-B (09:58)
[2024-06-19 11:04] LABS: SLIDE REVIEW VERIFIED
[2024-06-19 11:25] LABS: Glucose, Whole Blood 226 mg/dL (60-115)
[2024-06-19 11:35] VITALS: BP 103/69; PULSE 71; RESP 20; TEMP 37.1; O2SAT 95
--- NOTE | 2024-06-19 11:55 | MHC.CM.PN ---
Patient has been medically cleared for dc to home today, self care.
[2024-06-19] MEDS: Insulin Lispro 100 UNIT/ML 3 ML VIAL SUBCUT (12:01)
== END 2024-06-19 12:15 | disposition home or self-care (01) | DRG 720 ==
LOC: HO.ED 20:59 → HO.EDOVER 22:06 → HO.IMC 06-18 16:28
PROVIDERS: Emergency Medicine Emergency Medical Services; Nurse Practitioner Family; Admitting Provider Physician Assistant; Emergency Provider Emergency Medicine; Visit Provider Nurse Practitioner Acute Care
DX: A41.9 Sepsis, unspecified organism (principal); N17.9 Acute kidney failure, unspecified; C91.10 Chronic lymphocytic leukemia of B-cell type not having achieved remission; E11.22 Type 2 diabetes mellitus with diabetic chronic kidney disease; I13.0 Hypertensive heart and chronic kidney disease with heart failure and stage 1 through stage 4 chronic kidney disease, or unspecified chronic kidney disease; I50.9 Heart failure, unspecified; N10 Acute pyelonephritis; I25.10 Atherosclerotic heart disease of native coronary artery without angina pectoris; N18.30 Chronic kidney disease, stage 3 unspecified; N31.9 Neuromuscular dysfunction of bladder, unspecified; J44.9 Chronic obstructive pulmonary disease, unspecified; J45.30 Mild persistent asthma, uncomplicated; G47.33 Obstructive sleep apnea (adult) (pediatric); I25.2 Old myocardial infarction; Z87.891 Personal history of nicotine dependence; Z87.440 Personal history of urinary (tract) infections; Z79.4 Long term (current) use of insulin; Z79.51 Long term (current) use of inhaled steroids; Z79.82 Long term (current) use of aspirin; Z79.899 Other long term (current) drug therapy
CPT/HCPCS: 36415; 71045; 71250; 74176; 80048; 80076; 81001; 82947; 83605; 84484; 85025; 85610; 86140; 87040; 87086; 87088; 93005; 93970; 94660; 97161; 99285; J0696; J2270; J2405; J3010; J7120

== ENCOUNTER → 2024-06-17 11:07 | Outpatient (BNV) | payer MEDICAID, SELFPAY | PROVIDERS: Admitting Provider Physician Assistant; Emergency Provider Emergency Medicine; Visit Provider Internal Medicine Cardiovascular Disease | DX: R07.9 Chest pain, unspecified (principal) | CPT/HCPCS: 93010 ==

== ENCOUNTER → 2024-06-17 21:49 | Outpatient (BNV) | payer MEDICAID, SELFPAY | PROVIDERS: Admitting Provider Physician Assistant; Emergency Provider Emergency Medicine; Visit Provider Nurse Practitioner Acute Care | DX: N10 Acute pyelonephritis (principal); N39.0 Urinary tract infection, site not specified | CPT/HCPCS: 99223; 99232; 99239 ==

== ENCOUNTER 2024-06-29 10:56 | Outpatient (AMB) | payer MEDICAID, SELFPAY ==
--- NOTE | 2024-06-29 10:58 | MHC.OFFVIS ---
Intake Visit Reasons: neurogenic bladder/ incomplete bladder emptying Intake Note: Patient is present for NEUROGENIC BLADDER/INCOMPLETE BLADDER EMPTYING Urology Medication:NONE Antibiotic Allergy:SULFA,HEPARIN Blood Thinner:ASPIRIN TODAY'S PVR:38ML'S Ship'S Officer Required: No Allergies heparin Allergy (Verified 06/29/24 11:00) Nausea and Vomiting Sulfa (Sulfonamide Antibiotics) Allergy (Verified 06/29/24 11:00) Rash ticagrelor [From Brilinta] Allergy (Verified 06/29/24 11:00) Abdominal Pain HPI Comments Details: John is a pleasant male. He is seen for the following urologic conditions - neurogenic bladder Longstanding neurogenic bladder with CIC Recurrent UTIs Recently moved to area Start finasteride Start vitamin-C and methenamine Neurogenic bladder Recent hospital admission with pyelonephritis Primarily weakness of stream with feeling of incomplete emptying PVR today 40 cc UA 3+ leuks, trace blood and trace glucose Background diabetes insulin-dependent CIC 4 times a day PFS Medical History (Updated 06/29/24 @ 11:33 by Rajinder Bonds MD) CLL (chronic lymphocytic leukemia) Frequent UTI Neurogenic bladder Coronary artery disease Diabetes Hyperlipidemia Hypertension Social History Household Members: Family Household Members Other:: Sister, Rosibel Dowell Housing: Homeless Do you presently have visiting nurse or other home services: Yes Alcohol intake: current Alcohol intake frequency: holidays/special occasions only Alcohol type: wine and other Patient Tobacco Use Status: Former Tobacco user Tobacco use type: Cigarette Second Hand Smoke Exposure: No Substance Use Type: Marijuana service: No Review of Systems Const Denies chills and Denies fever(s) Card Reports no additional complaints and Denies syncope Resp Denies cough GI Denies abdominal pain and Denies heartburn Reports as per HPI and Denies change in libido Neuro Denies syncope Psych Denies change in libido Endo Denies change in libido Physical Exam Const General: cooperative, healthy appearing, comfortable and no acute distress Orientation/consciousness: patient oriented x3 HEENT Face and sinus: Yes normal facial exam Mouth: moist mucous membranes Neck Neck: Yes normal visual inspection, Yes full ROM and Yes trachea midline Chest Chest palpation & inspection: normal inspection of the chest Resp Effort & Inspection: normal respiratory effort, able to speak in complete sentences and no respiratory distress GI Inspection: Yes normal to inspection Back/Spine/Pelvis Cervical Spine: normal cervical lordosis Thoracic/Lumbar Spine: thoracic and lumbar spine normal to inspection Skin General skin exam: no rashes or lesions noted Neuro General: patient oriented x3, gait normal, tone normal and moves all extremities Extrem General: Yes normal to inspection and Yes capillary refill normal Office Procedures Post Void Residual Post Residual Void Post Void Residual (PVR): 38 [id number] Void Residual by ultrasound Results AMB Urinalysis, Automated UA Leukoctes 500 Robert/uL Last Edit by GUERRERO Mcfarlane on 06/29/24 14:02 UA Nitrite Negative Last Edit by GUERRERO Mcfarlane on 06/29/24 14:02 UA Urobilinogen 0.2 mg/dL Last Edit by GUERRERO Mcfarlane on 06/29/24 14:02 UA Protein 15 mg/dL Last Edit by GUERRERO Mcfarlane on 06/29/24 14:02 UA pH 6.5 Last Edit by GUERRERO Mcfarlane on 06/29/24 14:02 UA Blood 10 [place]/uL Last Edit by GUERRERO Mcfarlane on 06/29/24 14:02 UA Specific [place] 1.010 Last Edit by GUERRERO Mcfarlane on 06/29/24 14:02 UA Ketone Negative Last Edit by GUERRERO Mcfarlane on 06/29/24 14:02 UA Bilirubin 0 mg/dL Last Edit by GUERRERO Mcfarlane on 06/29/24 14:02 UA Glucose 100 mg/dL Last Edit by GUERRERO Mcfarlane on 06/29/24 14:02 Results Reviewed Results Reviewed: Laboratory Last Values Urine pH (Auto) 6.5 06/29/24 14:01 Specific [place] (Auto) 1.010 06/29/24 14:01 Urine Protein (Auto) 15 mg/dL 06/29/24 14:01 Glucose (UA)(Auto) 100 mg/dL 06/29/24 14:01 Urine Ketones (Auto) Negative 06/29/24 14:01 Urine Blood (Auto) 10 [place]/uL 06/29/24 14:01 Urine Nitrite (Auto) Negative 06/29/24 14:01 Urine Bilirubin (Auto) 0 mg/dL 06/29/24 14:01 Urine Urobilinogen (Auto) 0.2 mg/dL 06/29/24 14:01 Leukocyte Esterase (Auto) 500 Robert/uL 06/29/24 14:01 Assessment & Plan Assessment & Plan (1) Neurogenic bladder: Code(s): N31.9 - Neuromuscular dysfunction of bladder, unspecified Category: Medical (2) Frequent UTI: Code(s): N39.0 - Urinary tract infection, site not specified Category: Medical Plan Six-month follow-up Renal ultrasound Start vitamin-C and methenamine for recurrent UTIs Orders: Orders US renal BI 6 Months N39.0 - Urinary tract infection, site not specified AMB Urinalysis Automated Today Z13.9 - Encounter for screening, unspecified Medications: New ascorbic acid (vitamin C) 1 g PO DAILY 90 tabs 1RF 90 days N39.0 - Urinary tract infection, site not specified methenamine hippurate 1 g PO DAILY 90 tabs 1RF 90 days N39.0 - Urinary tract infection, site not specified finasteride 5 mg PO DAILY 90 tabs 1RF 90 days N13.8 - Other obstructive and reflux uropathy, N31.9 - Neuromuscular dysfunction of bladder, unspecified, N40.1 - Benign prostatic hyperplasia with lower urinary tract symptoms, R33.9 - Retention of urine, unspecified Patient Instructions: Imaging studies, laboratory and physical exam results were discussed and reviewed in detail. No major barriers to patient understanding were identified. An opportunity to ask questions regarding the treatment plan was provided. All questions were answered. The patient expressed understanding and agreement with the above treatment plan. The patient is aware they should contact our office by phone for worsening of their current condition or the appearance of new urologic symptoms. Compliance is encouraged with any medications and followup testing that is ordered. It is a privilege to participate in the urologic care of your patient. If you have any questions or concerns regarding treatment for the above conditions, or other urologic issues, please do not hesitate to contact me. The office telephone contact is [phone]. This note is constructed using voice recognition software. While every effort has been made to ensure accuracy cognos analyst errors may have been included. Yours sincerely, Dr Rajinder Bonds MD, [facility] - Urology Providers of Expert, Compassionate Care for the Genitourinary System Coding Level of Care Code New Pt Level 4 (56749) Diagnoses Neurogenic bladder N31.9 Frequent UTI N39.0 CPT Codes Post Residual Void - PVR CPT Code: 57286-Bkvy Void Residual by ultrasound ([id number])
--- OUTSIDE RECORDS SUMMARY | 2024-06-29 10:59 | XMS_ITS | Data Portability ---
Author Organization [place] - [facility], [facility] Specialist Address [address] [place] [address] Assessment No assessment recorded. Plan of Treatment Reminders Order Date Submit Date Provider Last Modified By Organization Details Last Modified Time Details Appointments None record ed. Lab None record ed. Referral None record ed. Procedures None record ed. Surgeries None record ed. Imaging None record ed. Medication Orders None record ed. Patient TargetsNo targets recorded. Patient InstructionsNo instructions recorded. Reason for Referral None Reported. Medical Equipment None Reported. Medications Name Sig Start Date Stop Date Status Note LastModified by Organization Details LastModified Time aspercreme lidocaine max strength 4 % ptch active Not Available Not Available Not Available mucus er 600mg tab TAKE 1 TABLET BY MOUTH EVERY 12 HOURS NEEDED FOR COUGH active Not Available Not Available No t Available cyclobenzapr ine 10 mg tablet TAKE 1 TABLET BY MOUTH THREE TIMES DAILY NEEDED FOR MUSCLE SPASM active Not Available Not Available No t Available amoxicillin 500 mg capsule TAKE 1 CAPSULE BY MOUTH EVERY 8 HOURS FOR 5 DAYS active Not Available Not Available No t Available atorvastatin 40 mg tablet TAKE 1 TABLET BY MOUTH AT BEDTIME active Not Available Not Available No t Available clotrimazole 10 mg jason DISSOLVE 1 TABLET BY MOUTH 4 TIMES DAILY FOR 7 DAYS active Not Available Not Available N ot Available nystatin 100,000 unit/mL oral suspension PLACE 0.5 ML IN EACH SIDE OF CHEEK ORALLY 4 TIMES DAILY active Not Available Not Available Not Available clonidine HCl 0.1 mg tablet TAKE 1 TABLET BY MOUTH AT BEDTIME NEEDED FOR INSOMNIA active Not Available Not Available No t Available azithromycin 250 mg tablet TAKE 2 TABLETS BY MOUTH ON DAY 1, AND THEN TAKE 1 TABLET BY MOUTH ONCE A DAY ON DAY 2 THROUGH DAY 5 active Not Available Not Available No t Available Lidocaine Viscous 2 % mucosal solution active Not Available Not Available Not Available ofloxacin 0.3 % eye drops INSTILL 1 DROP INTO RIGHT EYE 4 TIMES DAILY active Not Available Not Available Not Available isosorbide mononitrate 20 mg tablet TAKE 1 TABLET BY MOUTH TWICE DAILY GIVE DOSES 7 HOURS APART active Not Available Not Available Not Available benzonatate 200 mg capsule TAKE 1 CAPSULE BY MOUTH THREE TIMES DAILY NEEDED FOR COUGH active Not Available Not Available No t Available methylphenid ate 10 mg tablet TAKE 2 TABLETS BY MOUTH IN THE MORNING active Not Available Not Available Not Available sucralfate 100 mg/mL oral suspension active Not Available Not Available N ot Available methylphenid ate 5 mg tablet TAKE 1 TABLET BY MOUTH ONCE DAILY active Not Available Not Available No t Available isosorbide mononitrate ER 30 mg tablet,exten ded release 24 hr TAKE 1 TABLET BY MOUTH ONCE DAILY active Not Available Not Available No t Available gabapentin 400 mg capsule TAKE 1 CAPSULE BY MOUTH TWICE DAILY AND 2 CAPSULES AT BEDTIME active Not Available Not Available No t Available clopidogrel 75 mg tablet TAKE 1 TABLET BY MOUTH ONCE DAILY active Not Available Not Available No t Available aspirin 81 mg tablet,delay ed release TAKE 1 TABLET BY MOUTH ONCE DAILY active Not Available Not Available No t Available sildenafil 100 mg tablet TAKE 1 TABLET BY MOUTH ONCE DAILY NEEDED ADMINISTER 30 MINUTES TO 4 HOURS BEFORE SEXUAL ACTIVITY active Not Available Not Available No t Available prednisolone acetate 1 % eye drops,suspen moises INSTILL 1 DROP INTO RIGHT EYE 4 TIMES DAILY active Not Available Not Available Not Available lorazepam 0.5 mg tablet TAKE 1 TO 2 TABLETS BY MOUTH 30 MINUTES TO 1 HOURS PRIOR TO MRI NEEDED FOR ANXIETY active Not Available Not Available No t Available triamcinolon e acetonide 0.1 % dental paste APPLY TO DENTAL AREA THREE TIMES DAILY NEEDED FOR MOUTH IRRITATION, USE AFTER FOOD AND/OR DRINK AND/OR ORAL HYGIENE active Not Available Not Available No t Available cephalexin 500 mg capsule TAKE 1 CAPSULE BY MOUTH THREE TIMES DAILY FOR 10 DAYS active Not Available Not Available Not Available pantoprazole 40 mg tablet,delay ed release TAKE 1 TABLET BY MOUTH ONCE DAILY active Not Available Not Available No t Available nitrofuranto in macrocrystal 100 mg capsule TAKE 1 CAPSULE BY MOUTH TWICE DAILY WITH MEAL/ FOOD active Not Available Not Available N ot Available prednisone 50 mg tablet TAKE 1 TABLET BY MOUTH ONCE DAILY active Not Available Not Available No t Available divalproex ER 500 mg tablet,exten ded release 24 hr TAKE 1 TABLET BY MOUTH AT NIGHT ALONG WITH A 250 MG TABLET FOR A TOTAL DOSE OF 750 MG AT BEDTIME active Not Available Not Available No t Available losartan 25 mg tablet TAKE 1 TABLET BY MOUTH ONCE DAILY active Not Available Not Available No t Available nitroglyceri n 0.4 mg sublingual tablet DISSOLVE ONE TABLET UNDER THE TONGUE EVERY 5 MINUTES NEEDED FOR CHEST PAIN. DO NOT EXCEED A TOTAL OF 3 DOSES IN 15 MINUTES active Not Available Not Available No t Available hydroxyzine HCl 25 mg tablet active Not Available Not Available Not Available gabapentin 100 mg capsule TAKE 1 CAPSULE BY MOUTH TWICE DAILY AND 2 CAPSULES AT BEDTIME active Not Available Not Available No t Available metoprolol succinate ER 25 mg tablet,exten ded release 24 hr TAKE 1/2 (ONE-HALF) TABLET BY MOUTH ONCE DAILY active Not Available Not Available No t Available loteprednol etabonate 0.5 % eye drops,suspen moises active Not Available Not Available Not Available fluticasone propionate 50 mcg/actuatio n nasal spray,suspen moises USE 2 SPRAY(S) IN EACH NOSTRIL TWICE DAILY active Not Available Not Available Not Available metformin ER 500 mg tablet,exten ded release 24 hr TAKE 2 TABLETS BY MOUTH TWICE DAILY active Not Available Not Available No t Available loratadine 10 mg tablet TAKE 1 TABLET BY MOUTH ONCE DAILY active Not Available Not Available No t Available Ventolin HFA 90 mcg/actuatio n aerosol inhaler INHALE 2 PUFFS BY MOUTH EVERY 6 HOURS NEEDED FOR SHORTNESS OF BREATH OR WHEEZING active Not Available Not Available Not Available insulin lispro (U-100) 100 unit/mL subcutaneous pen INJECT 6 UNITS SUBCUTANEOU SLY THREE TIMES DAILY active Not Available Not Available Not Available aripiprazole 20 mg tablet TAKE 1 TABLET BY MOUTH ONCE DAILY IN THE MORNING active Not Available Not Available Not Available divalproex ER 250 mg tablet,exten ded release 24 hr TAKE 1 TABLET BY MOUTH ONCE DAILY AT NIGHT TO BE TAKEN WITH 500 MG TABLET active Not Available Not Available No t Available cyclobenzapr ine 5 mg tablet TAKE 1 TABLET BY MOUTH THREE TIMES DAILY active Not Available Not Available Not Available cyclosporine 0.05 % eye drops in a dropperette INSTILL 1 DROP INTO EACH EYE TWICE DAILY active Not Available Not Available Not Available nitrofuranto in monohydrate/ macrocrystal s 100 mg capsule TAKE 1 CAPSULE BY MOUTH TWICE DAILY WITH MEAL/ FOOD active Not Available Not Available N ot Available Lantus Solostar U-100 Insulin 100 unit/mL (3 mL) subcutaneous pen INJECT 17 UNITS SUBCUTANEOU SLY DAILY active Not Available Not Available No t Available Allergy Relief (cetirizine) 10 mg tablet TAKE 1 TABLET BY MOUTH ONCE DAILY active Not Available Not Available No t Available Brilinta 90 mg tablet TAKE 1 TABLET BY MOUTH TWO TIMES A DAY active Not Available Not Available Not Available Aspercreme (lidocaine) 4 % topical patch APPLY 1 PATCH TOPICALLY ONCE DAILY NEEDED FOR PAIN active Not Available Not Available No t Available BD Suyapa 2nd Gen Pen Needle 32 gauge x 5/32 USE PEN NEEDLES SUBCUTANEOU SLY 4 TIMES DAILY active Not Available Not Available No t Available FreeStyle Arik 2 Sensor kit active Not Available Not Available N ot Available Vitals Date Recorded Heart rate Systolic blood pressure Diastolic blood pressure Provider Name and Address Organization Details Last Updated DateTime 03/31/2022 66 /min 131 mm[Hg] 80 mm[Hg] Not Available [id number] 03/31/2022 09:33:55 Social History None recorded. Functional Status None recorded. Mental Status None recorded. Family History Nothing Reported. Medical History No medical history recorded. Past Encounters Encounter ID Performer Location Encounter Start Date Encounter Closed Date Diagnosis/Indication Diagnosis SNOMED-CT Code Diagnosis ICD10 Code [id number] [facility] [address] [address] 03/31/2022 07:12:30 04/10/2022 10:16:26 Health Concerns Section Related Observation LastModified by Organization Detai ls LastModified Time None Recorded Concern Status LastModified by Organization Details LastModified Time None Recorded Advance Directives Directive None Recorded Payers Encounter Date Sequence Insurance Name Policy Number Policy Reyna Covered Member ID Reyna Member ID Guarantor Name 03/31/2022 1 [place] John Dowell [id number] John Dowell 03/31/2022 [employer] (MOVED TO HOLD) John Dowell [employer] John Dowell
--- OUTSIDE RECORDS SUMMARY | 2024-06-29 10:59 | XMS_ITS | Continuity of Care Document ---
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 Name Role Phone Destinee BEVERLY, Alex Alvarez Primary Care Physician Encounter [facility] [place] Date(s): 06/27/24 - 06/27/[address] [address] Discharge Disposition: A-D/C Home Attending Physician: Cisco Méndez MD Admitting Physician: Cisco Méndez MD Referring Physician: Adriel COKER, Lisa Encounter Type: Disch Daystay Allergies, Adverse Reactions, Alerts Substance Criticality Severity Reaction Reaction Severity Status sulfADIAZINE Active trimethoprim Active heparin Active povidone iodine topical Active Macrodantin Active Other Food Allergy 1 Active Celery Active Brilinta (ticagrelor) Shortn ess of breath Active anabolic steroids Ac tive Coconut Active 1peppers, coconut and celery Immunizations Given and Recorded Vaccine Date Status Refusal Reason influenza virus vaccine, inactivated 05/04/22 Carlitos rded influenza virus vaccine, inactivated 06/25/21 Carlitos rded influenza virus vaccine, inactivated 04/29/20 Carlitos rded SARS-CoV-2 (COVID-19) mRNA-1273 vaccine 08/01/21 R ecorded SARS-CoV-2 (COVID-19) mRNA-1273 vaccine 11/16/20 R ecorded SARS-CoV-2 (COVID-19) mRNA-1273 vaccine 10/19/20 R ecorded Medications aspirin 81 mg oral tablet 1 tablet = 81 mg, By Mouth, Daily, # 30 tablet, 0 Refills, Maintenance, 02/03/18 7:21:19 AM EDT, Tablet Start Date: 02/03/18 Status: Ordered Quantity: 30.0 Unit: tablet Repeat number: 1 atorvastatin 40 mg oral tablet 1 tablet = 40 mg, By Mouth, Daily, # 30 tablet, 0 Refills, Maintenance, Tablet Start Date: 02/03/18 Status: Ordered Quantity: 30.0 Unit: tablet Repeat number: 1 [place] See Instructions, Inhalation Daily, 0 Refills, Maintenance, 01/12/24 12:06:00 AM EDT, Partial fill upon patient request if the prescription is for a schedule II opioid drug. Start Date: 01/12/24 Status: Ordered Repeat number: 1 glucose 4 gm oral tablet, chewable 4 tablet = 16 Gm, Chew, 3 times a day, PRN as needed for low blood sugar, # 50 tablet, 0 Refills, Soft Stop, 12/30/23 12:49:00 PM EDT, Chew Tablet, [facility], Partial fill upon patient request if the prescription is for a schedule II opioid drug., 178, cm, 12/30/23 12:48:00 EDT, Height, 121.6, kg, 12/30/23 8:47:00 EDT, Dry Weight Start Date: 12/30/23 Stop Date: 01/29/24 Status: Ordered Quantity: 50.0 Unit: tablet Repeat number: 1 Insulin Lispro KwikPen 100 units/mL injectable solution INJECT 6 UNITS INTO THE SKIN 3 TIMES DAILY. PLUS SLIDING SCALE DIRECTED. MAX DAILY DOSE 50 UNITS Start Date: 09/29/23 Status: Ordered Repeat number: 1 Kerendia 10 mg oral tablet 1 tablet = 10 mg, By Mouth, Daily, # 30 tablet, 0 Refills, Maintenance, 01/12/24 12:09:00 AM EDT, Tablet, Partial fill upon patient request if the prescription is for a schedule II opioid drug. Start Date: 01/12/24 Status: Ordered Quantity: 30.0 Unit: tablet Repeat number: 1 Lantus Solostar Pen 100 units/mL subcutaneous solution = 38 units, Subcutaneous Injection, Daily Start Date: 09/29/23 Status: Ordered Repeat number: 1 Metoprolol Succinate ER 50 mg oral tablet, extended release TAKE ONE TABLET BY MOUTH EVERY DAY Start Date: 09/29/23 Status: Ordered Repeat number: 1 nitroglycerin 0.4 mg sublingual tablet 1 tablet = 0.4 mg, Sublingual, Every 5 minutes, PRN for chest pain, # 100 tablet, 0 Refills, Maintenance, 02/03/18 7:21:49 AM EDT, Tablet Start Date: 02/03/18 Status: Ordered Quantity: 100.0 Unit: tablet Repeat number: 1 pantoprazole 40 mg oral delayed release tablet 1 tablet = 40 mg, By Mouth, Daily, # 90 tablet, 0 Refills, Maintenance, 12/05/22 8:11:00 AM EDT, EC Tablet Start Date: 12/05/22 Status: Ordered Quantity: 90.0 Unit: tablet Repeat number: 1 pregabalin 200 mg oral capsule 1 capsule = 200 mg, By Mouth, 2 times a day, # 60 capsule, 0 Refills, Maintenance, 11/13/23 3:46:00 PM EDT, Capsule, [facility], Partial fill upon patient request if the prescription is for a schedule II opioid drug., 178, cm, 11/13/23 15:26:00 EDT, Height, 118, kg, 11/13/23 8:04:00EDT, Dry Weight Start Date: 11/13/23 Status: Ordered Quantity: 60.0 Unit: capsule Repeat number: 1 ranolazine 500 mg oral tablet, extended release 2 tablet = 1,000 mg, 2 times a day, TAKE ONE TABLET BY MOUTH TWICE A DAY Start Date: 09/29/23 Status: Ordered Repeat number: 1 Remeron 15 mg oral tablet 2 tablet = 30 mg, By Mouth, Daily at bedtime, # 30 tablet, 0 Refills, Maintenance, 10/11/23 12:07:00 PM EDT, Tablet, [facility], Partial fill upon patient request if the prescription is for a schedule II opioid drug., 179, cm, 09/28/23 15:08:00 EDT, Height, 80.3, kg, 10/11/23 6:22:00 EDT, Dry Weight Start Date: 10/11/23 Status: Ordered Quantity: 30.0 Unit: tablet Repeat number: 1 torsemide 20 mg oral tablet 1 tablet = 20 mg, By Mouth, 2 times a day, PRN Other, 0 Refills, Maintenance, 06/27/24 10:24:00 AM EST, Partial fill upon patient request if the prescription is for a schedule II opioid drug. Start Date: 06/27/24 Status: Ordered Repeat number: 1 Ventolin 90 mcg Inhaler 2, puffs, Inhalation, Every 4 hours, Refills 0, Maintenance, 12/05/22 8:12:00 AM EDT, Inhaler Start Date: 12/05/22 Status: Ordered Repeat number: 1 Problem List Condition Confirmation Course Effective Dates Status H ealth Status Informant Hyperglycemia due to diabetes mellitus Confirmed Active Lactic acid acidosis Confirmed Active Hypotension Confirmed Active Obese class II Confirmed Active Sepsis Confirmed Active UTI (urinary tract infection) Confirmed Active Vital Signs Most recent to oldest [Reference Range]: 1 2 3 Height 180.34 cm (06/27/24 10:17 AM) Weight 118.39 kg (06/27/24 10:17 AM) Oxygen Saturation [94-100 %] 95 % (06/27/24 5:20 PM) 94 % (06/27/24 5:14 PM) 92 % *L* (06/27/24 4:59 PM) Pulse Rate [55-90 bpm] 57 bpm (06/27/24 10:17 AM) Body Mass Index [18.5-24.99 kg/m2] 36.4 kg/m2 *>HHI* (06/27/24 10:17 AM) Blood Pressure [90-138/55-84 mm Hg] 105/65mm Hg (06/27/24 5:18 PM) 101/64mm Hg (06/27/24 5:00 PM) 99/63mm Hg (06/27/24 4:45 PM) Respiratory Rate [16-30 br/min] 14 br/min *L* (06/27/24 5:20 PM) 14 br/min *L* (06/27/24 5:14 PM) 15 br/min *L* (06/27/24 4:59 PM) Temperature [96.8-100.4 DegF] 97.3 DegF (06/27/24 10:17 AM) Liters per Minute 2 L/min (06/27/24 3:30 PM) 2 L/min (06/27/24 3:15 PM) 2 L/min (06/27/24 3:00 PM) Mode of Delivery (Oxygen) Room air (06/27/24 5:15 PM) Room air (06/27/24 5:00 PM) Room air (06/27/24 4:45 PM) Blood pressure sites Arm, right (06/27/24 10:17 AM) Temperature Route Oral (06/27/24 10:17 AM) Social History Social History Type Response Smoking Status Former smoker, quit more than 30 days ago; Other: quit 2007; entered on: 08/22/18 Sex Sex Representation Male (finding) Note * Event Display: Hemodynamic Procedure Report Authored Date: [id number] * Temitope Xie RN: PERFORM Event Display: Discharge/Transfer Note Hospital Authored Date: [id number] Nursing Discharge Note Entered On: 06/27/2024 18:48 EST Performed On: 06/27/2024 18:37 EST by Temitope Xie RN Nursing Discharge Note 2 Discharge Time : 06/27/2024 18:00 EST Discharge Level of Care at Discharge : Home/Usp/Foster Care Patient Left Unit Via : Wheelchair Patient Accompanied Off Unit with : Responsible adult DC Instructions Provided & Signed by Pt : Yes Patient Understands D/C Instructions : Yes Patient Instructions Discharge Signed : Yes Did Pt have Specialty Bed or Wound Vac : No Temitope Xie RN - 06/27/2024 18:37 EST * Temitope Xie RN: PERFORM Event Display: Patient Education/Instruction Authored Date: [id number] Inpatient Adult Discharge Instructions. [address] [address] Name: MCKENZIE GUIDRY : 1960?? Visit: 06/27/2024 08:54?? Current Date: 06/27/2024 17:48 ?? Account: [id number]?? Inpatient Adult Discharge Instructions We would like to thank you for allowing us to assist you with your healthcare needs. The following includes patient education materials and information regarding your injury/illness. Our entire staffstrives to provide an excellent experience for our patients and their families. PLEASE ENSURE YOU FOLLOW-UP PER THE INSTRUCTIONS BELOW! ?? YOUR OPINION IS IMPORTANT TO US! Please complete the survey you may receive by mail or email. Your feedback will be used to make improvements to the healthcare experiences of our patients and their families. Surveys are administered by [employer] ?? If further treatment with your primary care physician or another doctor is recommended, it is important for you to keep the appointment. Call your primary care physician or return to the Emergency Department immediately if your condition worsens, fails to improve, or new symptoms develop. If you need to find a doctor, you can call [facility] [employer] [facility] for a referral at [phone] or toll free at [phone]) or log in to [email or web address].. ?? [facility], in keeping with [facility] guidance, no longer requires face masks for staff, patientsor visitors in most situations. Similiar to time spent indoors at other locations, there is the chance that you were exposed to repiratory viruses during your time with us (such as flu or COVID-19). If you develop symptoms concerning for a viral respiratory infection, please seek testing (and treatment if indicated) from your medical provider or home test kit. ?? You can view and manage your care through the patient portal or by using a health care erika of your choosing. [employer] is a website that allows you to securely view your medical information including your hospital discharge summary, office visit summaries, medications and follow-up visits. You can also request appointments, renew medications, and request access to your medical information using a health care erika of your choosing, or just ask a question. You can enroll at [email or web address] or register during your next office visit. You have been discharged from [facility], Patient Care Unit: CARE??. If you have any questions regarding these instructions, including results of studies pending, afteryou leave, please call us and we will be happy to assist you 01/02. [facility] Nursing Unit Direct Phone Number, for 01/02 contact and results of studies pending CARE [address] [place] [address] Your Care Team Attending Physician Cisco Méndez MD?? Consulting Providers Cisco Méndez MD?? Discharging Providers Cisco Méndez MD Tests Performed Below is a partial list of the tests performed during your hospitalization. You may have had other tests and procedures not included in this list. Please discuss all test results with your provider. Basic Metabolic Panel CBC GLUCOSE POC Type and Screen Basic Metabolic Panel?? CBC?? Glucose POC?? Type and Screen?? Primary Care Provider Alex Felipe MD? Advance Directive Health Care Proxy on File No Discharge Vitals Temperature: 97.3 DegF Height: 180.34 cm Pulse Rate: 57 bpm Weight: 118.39 kg Respiratory Rate:??13 br/min??Low Body Mass Index:??36.4 kg/m2??Critical Systolic Blood Pressure: 114 mm Hg Body surface area: 2.44 Diastolic Blood Pressure: 71 mm Hg ?? Oxygen Saturation: 98 % ?? Studies Pending All studies ordered during this hospital stay have been completed unless listed below. Please discuss all pending results with your provider listed above in these instructions. ?? No incomplete studies found?? What to do next Instructions From Your Doctor ?? Orders?? to discharge patient 45 min after TR band is off., ??06/27/24 14:09:00 EST?? You Need to Schedule the Following Appointments Follow Up with??Alex Felipe MD Where: [address] [place] [id number]- Discharge Medications MCKENZIE GUIDRY :1960 Visit Date:06/27/2024 Medications: Please continue your medications until treatment is completed or stopped by your provider. Medications not listed below should be discontinued. Discuss any questions related to medications with your provider. What How Much When Instructions Next Dose Unchanged Albuterol (Ventolin 90 mcg Inhaler) 2 puff(s) Inhalation Every 4 hours as needed Unchanged Aspirin (aspirin 81 mg oral tablet) 1 tab(s) Oral Daily tomorrow am Unchanged Atorvastatin (atorvastatin 40 mg oral tablet) 1 tab(s) Oral Daily resume Unchanged finerenone (Kerendia 10 mg oral tablet) 1 tab(s) Oral Daily resume Unchanged fluticasone-vilanterol (Breo Ellipta) See instructions Inhalation Daily ?? resume Unchanged Glucose (glucose 4 gm oral tablet, chewable) 4 tab(s) Chew 3 times a day as needed for as needed for low blood sugar Duration: 30 Days as needed Unchanged Insulin Glargine (Lantus Solostar Pen 100 units/ mL subcutaneous solution) 38 unit(s) Subcutaneous Injection Daily resume Unchanged Insulin Lispro (Insulin Lispro KwikPen 100 units/ mL injectable solution) INJECT 6 UNITS INTO THE SKIN 3 TIMES DAILY. PLUS SLIDING SCALE DIRECTED. MAX DAILY DOSE 50 UNITS?? according to sliding scale Unchanged Metoprolol (Metoprolol Succinate ER 50 mg oral tablet, extended release) TAKE ONE TABLET BY MOUTH EVERY DAY ?? resume Unchanged Mirtazapine (Remeron 15 mg oral tablet) 2 tab(s) Oral Daily at Bedtime resume Unchanged Nitroglycerin (nitroglycerin 0.4 mg sublingual tablet) 1 tab(s) Sublingual Every 5 minutes as needed for for chest pain as needed Unchanged Pantoprazole (pantoprazole 40 mg oral delayed release tablet) 1 tab(s) Oral Daily resume Unchanged Pregabalin (pregabalin 200 mg oral capsule) 1 capsule Oral Twice a day tonight Unchanged ranolazine (ranolazine 500 mg oral tablet, extended release) 2 tab(s) Twice a day TAKE ONE TABLET BY MOUTH TWICE A DAY ?? resume Unchanged torsemide (torsemide 20 mg oral tablet) 1 tab(s) Oral Twice a day as needed for Other resume Prescription Given During Visit No new medications prescribed at time of discharge.?? Laboratory Results Below is a partial list of the most recent Laboratory test results done prior to this discharge. You may have had other tests and procedures not included in this list. Please discuss all test resultswith your provider. Basic Metabolic Panel (06/27/2024) ???Sodium - 144 mmol/L???Potassium - 4.6 mmol/L???Chloride - 106 mmol/L???Bicarbonate Level - 27 mmol/L???Anion Gap - 11???Glucose Level - 146 mg/dL???BUN - 20 mg/dL???Creatinine-Blood - 1.36 mg/dL???Estimated GFR Creatinine - 59 ML/MIN/1.73 M2???Calcium - 9.5 mg/dL CBC (06/27/2024) ???WBC - 13.1 k/mm3???RBC - 4.16 m/mm3???Hgb - 12.9 Gm/dL???Hct - 39.6 %???MCV - 95.2 femtoliters???MCH - 31.0 pg???MCHC - 32.6 Gm/dL???Platelet Count - 154 k/mm3???RDW-SD - 52.2 femtoliters???MPV - 10.1 femtoliters???Nucleated RBC (Automated) - 0.0 #/100 WBC'S???Abs. NRBC - 0.0 k/mm3 GLUCOSE POC (06/27/2024) ???Glucose, POC - 147 mg/dL Type and Screen (06/27/2024) ???Blood Type - O Positive???Antibody Screen - Negative You will be contacted within 72 hours with your results. Allergies (NKA means No Known Allergies) Brilinta (ticagrelor)??(Shortness of breath) Celery Coconut Macrodantin Other Food Allergy anabolic steroids heparin povidone iodine topical sulfADIAZINE trimethoprim Problems Active Problems??(6) Hyperglycemia due to diabetes mellitus?? Hypotension?? Lactic acid acidosis?? Obese class II?? Sepsis?? UTI (urinary tract infection)?? Education Materials Below is the list of Educational Leaflet Providered with your Discharge Instructions. WebMD Ignite Patient Education - Surgery Radial Cath Approach Discharge Instructions?? WebMD Ignite Patient Education - Procedural Sedation?? Valuables and Belongings I fully understand and agree that [facility] accepts no responsibility for all my personal property including clothing, toilet articles, radios, jewelry, dentures, hearing aids, rings, money, or any other property that is in my possession or is brought to me after admission. I understand certain valuables may be placed in a hospital safe for a short period of time. I understand that the hospital is not liable for loss or damage due to accident, fire, or other natural occurrence while said property is in the safe. I accept full responsibility for any personal property that I keep with me, and will not hold the hospital responsible in case of loss or disappearance. I acknowledge that i have been encouraged to send valuables and belongings home. ?? Date for Pt to Sign Valuables/Belongings: 06/27/24 10:17:00 ?? Valuables & Belongings ?? Clothes Electronic devices Jewelry Monetary Items Personal devices Miscellaneous Medications (Valuables) Valuables at Bedside Jacket, Pants, Shirt, Shoes, Undergarments Cell phone ? Walker ? Valuables Sent Home ? Valuables Sent to Security ? Valuables Sent to Locker ? Other Discharge Information ? Pulmonary Rehab Status?? Pulmonary Rehab Discharge Status?? Respiratory Rate:??13 br/min??Low ? Common Emergency Awareness Tips IS IT A STROKE? Act FAST and Check for these signs: FACE Does the face look uneven? ARM Does one arm drift down? SPEECH Does their speech sound strange? TIME Call at any sign of stroke ?? Heart Attack Signs Chest discomfort: Most heart attacks involve discomfort in the center of the chest and lasts more than a few minutes, or goes away and comes back. It can feel like uncomfortable pressure, squeezing, fullness or pain. Discomfort in upper body: Symptoms can include pain or discomfort in one or both arms, back, neck, jaw or stomach. Shortness of breath: With or without discomfort. Other signs: Breaking out in a cold sweat, nausea, or lightheaded. Remember, MINUTES DO MATTER. If you experience any of these heart attack warning signs, call to get immediate medical attention! ?? Smoking can increase your chances of developing chronic health problems and can cause harmful effects to other family members in your house. If you smoke, you are strongly encouraged to quit. Please call [facility] [employer] [facility] at [phone] or [phone] ([phone]) or log in to [email or web address] for referrals to smoking cessation programs. ?? 025 Suicide & Crisis Lifeline is available 01/02 if you or someone you know needs to find a reason to keep living. By calling 501 you'll be connected to a skilled, trained counselor at a crisis center in your area. INPATIENT DISCHARGE INSTRUCTIONS SIGNATURE PAGE MCKENZIE GUIDRY Location:[facility] Registration Date and Time:06/27/2024 08:54 EST Primary Care Physician: Destinee BEVERLY, Alex Alvarez, Attending Physician: Honey BEVERLY, Cisco Jefferson, MCKENZIE RUBY, have received the above patient education materials/instructions and have verbalized understanding. If ambulance or transport services are being used I further acknowledge being given a choice of service. ?? If you need to contact me, please call me at this number: . Patient/Weaving Machine Operator Name: Patient/Weaving Machine Operator Signature: Relationship to Patient: Witness Name/Signature: Date: * Rojas FUCHS, Temitope: PERFORM Event Display: Patient Education Leaflets Authored Date: [id number] Surgery Radial Cath Approach Discharge Instructions ?? 278 Radial Cath Approach Discharge Instructions ?? Activity Take it easy the rest of the day. Limit your activity on the affected side.?? Act as if your arm is broken for 24 hours. No lifting with affected arm for 24 hours. No pushing or pulling with the affected arm. Do not reach or lift with the affected arm. Do not place excessive pressure on the wrist. ?? Precautions Due to intravenous sedation: It is recommended that someone stay with you for the first night after your procedure. Do not drive or operate hazardous machinery for 24 hours. Do not make legal decisions for 24 hours. Avoid alcohol for 24 hours. Unless directed otherwise, keep yourself hydrated. ?? Dressing/Incision Care You may remove the dressing 24 hours after your procedure. Replace with band aid for an additional 24 hours. You may shower and cleanse the site with soap & water then pat dry. Avoid submersion of site in water x 5 days. Cover the with a clean band aid daily until site is healed. If the band aid becomes soiled, replacewith a clean new one. Do not apply any ointments, lotions, gels or powders to the puncture site. ?? When to contact your doctor If any of the following signs of infection occur: Fever greater than 100 degrees F Increased pain Drainage, redness or warmth at puncture site Tingling of the fingers and hand that last longer than 3 days Slight bubble of blood or bleeding from site: apply manual pressure and notify your doctor ?? Emergency situations: Bleeding from the site that will not stop: apply manual pressure and notify your doctor Profuse bleeding streaming from the puncture site: Apply manual pressure and notify your doctor immediately If your hand becomes bluish, cold to the touch, or painful, notify your doctor immediately or go toEmergency Department. For these emergent situations: If unable to contact your physician, call 911. ?? * Rojas FUCHS [facility]: PERFORM Event Display: Patient Education Leaflets Authored Date: [id number] Procedural Sedation ?? [address] Procedural Sedation Procedural sedation is medicine to ease discomfort, pain, and anxiety during a procedure. The medicine is often given through an IV (intravenous) line in your arm or hand. In some cases, the medicinemay be taken by mouth or inhaled. While you are under sedation, you will likely be awake. But you may not remember it afterward. Why procedural sedation is used Sedation is used for many types of procedures. The goal is to reduce pain, anxiety, and stressful memories of a procedure. It can help your healthcare provider treat you. For example, having a brokenbone fixed may be easier if you feel relaxed. This type of sedation is used only for short, basic procedures. It's not used for complex surgery. Some procedures that use this type of sedation include: ??? Dental surgery ??? Breast biopsy, to take a sample of breast tissue ??? Endoscopy, to look at gastrointestinal problems ??? Bronchoscopy, tocheck for lung problems ??? Bone or joint realignment, to fix a broken bone or dislocated joint ???Minor foot or skin surgery ??? Electrical cardioversion, to restore a normal heart rhythm ??? Lumbar puncture, to check for neurological disease ?? Risks of procedural sedation Risks and possible side effects include: ??? Headache ??? Nausea and vomiting ??? Bad memories of the procedure ??? Slowed breathing ??? Changes in heart rate and blood pressure (rare) ??? Inhalation of stomach contents into your lungs (rare) Side effects will likely go away shortly after the procedure. Your healthcare team will watch your heart rate and breathing during and after your sedation. This is to help prevent problems. Your own risks may vary. They can be based on your age and your overall health. They also depend onthe type of sedation you are given. Talk with your healthcare provider about the risks that apply most to you. ?? Getting ready for procedural sedation Talk with your provider about how to get ready for your procedure. Tell them about all the medicines you take. This includes [id number] medicines, such as ibuprofen. It also includes vitamins, herbs, and other supplements. You may need to stop taking some medicines before the procedure, such as blood thinners and aspirin. If you smoke, you should stop. This is to lessen the chance of a lungproblem. Talk with your provider if you need help to stop smoking. Tell your provider if you: ??? Have had any problems in the past with sedation or anesthesia ??? Have had any recent changes in your health, such as an infection or fever ??? Are or think you could be Also: ??? Follow any directions you are given for not eating or drinking before procedure. ??? Ask a trusted adult to take you home after the procedure. You can???t drive on the day you have sedation. ??? Ask a trusted adult to stay with you for a few hours while you recover. ??? Don't make any important decisions, such as financial or legal, on the day after you have sedation. ??? Follow all other instructions from your provider. ?? During your procedural sedation You may have your procedure in a hospital or a clinic. Sedation is done by a trained healthcare provider. In general, you can expect the following: ??? You will be given medicine through an IV line in your arm or hand. Or you may get a shot or take it by mouth. Or you may inhale it through a mask. ??? If you have medicine through an IV, you may feel the effects very quickly. You will start to feel relaxed and drowsy. ??? During the procedure, your heart rate, breathing, and blood pressure will be closely watched. Your breathing and blood pressure may decrease a little. But you will likely notneed help with your breathing. You may get a little extra oxygen. This is done through a mask or some soft plastic prongs under your nose. ??? You will likely be awake the whole time. If you do fall asleep, you should be easy to wake up, if needed. You should feel little or no pain. ??? When your procedure is over, the sedative medicine will be stopped. ?? After your procedural sedation You will start to feel more awake and aware. But you will likely be drowsy for a while afterward. You will be closely watched as you become more alert. You may have a faint memory of the procedure. Or you may not remember it at all. You should be able to go home within 1 to 2 hours after your procedure. Plan to have a trusted adult stay with you for a few hours. This person should make sure your condition is not getting worse. They should also watch for problems, and keep you safe. You may have side effects, such as nausea, fatigue, or unsteadiness for up to 24 hours. You may also feel lightheaded. Tell your healthcare provider if they continue. Don???t drive or operate dangerous machines during the next 24 hours. Also, don't make any important business or personal decisions. And don't drink any alcohol during the next 24 hours. Take extra care when walking and moving, You may be at a higher risk of falling. Follow any instructions you were given for eating and drinking. Be sure to follow all after-care directions. ?? When to call your healthcare provider Have someone call your healthcare provider right away if any of the following occur: ??? Drowsinessthat gets worse ??? Weakness or dizziness that gets worse ??? Repeated vomiting ??? Your speech is slurred, and others cannot understand you ??? Severe or ongoing pain from the procedure, not relieved by the pain medicine (if prescribed) ??? Fever of 100.4?? F (38??C) or higher, or as advised by your healthcare provider ??? New rash ?? Call 911 Have someone call 911 if any of the following occur: ??? Trouble breathing ??? Trouble swallowing ??? Chest pain ??? Loss of consciousness or you can't be awakened ?? Last Reviewed Date: 2022 ?? [id number] [employer]. All rights reserved. This information is not intended as a substitute for professional medical care. Always follow your healthcare professional's instructions. ?? History and physical note * Event Display: History and Physical Hospital Authored Date: EKG study * Event Display: ECG 12-Lead Authored Date: Please click on pdf link to open report * Event Display: ECG 12-Lead Authored Date: Ventricular Rate: 57 BPM Atrial Rate: 57 BPM P-R Interval: 148 ms QRS Duration: 96 ms Q-T Interval: 460 ms QTC Calculation(Bazett): 447 ms P Schuyler: 56 degrees R Schuyler: 47 degrees T Schuyler: 67 degrees Sinus bradycardia Otherwise normal ECG When compared with ECG of 16-Jan-2024 23:28, No significant change was found Confirmed by Jono iPedra ([id number]) on 06/27/2024 12:34:09 PM Standard: Jono Piedra Patient Care team information Care Team Personnel Name: Natalie Henning RN Position: S RN Member Role: Primary Care Nurse Name: Kaykay Friedman RN Position: S RN Member Role: Primary Care Nurse Name: Pauline Santana RN Position: [facility] RN Supv Member Role: Primary Care Nurse Name: Bev Sifuentes MA Position: S Outreach Member Role: Lif[employer] Consulting Physician Name: Juju Templeton RN Position: S RN Member Role: Primary Care Nurse Name: Garrett Cast RN Position: [facility] RN Supv Member Role: Primary Care Nurse Name: Jono Mckinley RN Position: [facility] RN Member Role: Primary Care Nurse Name: Alex Felipe MD Position: Reference Physician Member Role: PCP Address: [address] [place] [address] Telecom: Name: Maria Isabel Garcia RN Position: [facility] RN Member Role: Primary Care Nurse Name: Chioma Zamudio RN Position: [facility] RN Member Role: Primary Care Nurse Name: Keesha Smith Position: [facility] Outreach Member Role: Lifetime Consulting Physician Name: Maria Isabel Warren RN Position: [facility] RN Member Role: Primary Care Nurse Name: Leanna Mcmahan RN Position: [facility] RN Member Role: Primary Care Nurse Name: Jacques Saravia RN Position: [facility] RN Member Role: Primary Care Nurse Name: Aleks Rodriguez RN Position: [facility] RN Member Role: Primary Care Nurse Care Team Related Persons Name: CHAO KATALINA Name: LISA GUIDRY Name: LISA, DEFAULTED Insurance Providers Guarantor name: MCKENZIE GUIDRY Health Plan Information #: 1 Payer: [employer] Member Number: [id number] Policy Number: NA Group Number: NA Health Plan Information #: 2 Payer: [employer] Member Number: [id number] Policy Number: NA Group Number: NA
== END 2024-06-29 11:35 | disposition home or self-care (01) ==
PROVIDERS: Visit Provider Urology
DX: N31.9 Neuromuscular dysfunction of bladder, unspecified (principal); N39.0 Urinary tract infection, site not specified; Z13.9 Encounter for screening, unspecified
CPT/HCPCS: 99204

== ENCOUNTER → 2024-06-29 10:56 | Outpatient (BNVA) | payer MEDICAID, SELFPAY | PROVIDERS: Visit Provider Urology | DX: N31.9 Neuromuscular dysfunction of bladder, unspecified (principal); N39.0 Urinary tract infection, site not specified | CPT/HCPCS: 51798; 81003; 99202 ==

== ENCOUNTER 2024-12-11 10:33 | Outpatient (REF) | payer MEDICAID, SELFPAY ==
--- NOTE | ~2024-12-11 | US_ITS ---
CLINICAL HISTORY: N39.0 - Urinary tract infection, site not specified US Renal Comparison: None Findings: Right kidney: The right kidney measures 11.6 cm in maximum sagittal dimension. There is the suggestion of a 3.2 cm somewhat ill-defined mass lesion containing calcifications within the midpole. There is also a 10 mm upper pole cyst and nonobstructive calculi measuring up to 7 mm. Left kidney normal size and echotexture, 12.0 cm length. Small benign-appearing cysts are noted. No hydronephrosis of either kidney. Normal color Doppler IMPRESSION: 3.2 cm right renal mass. Reportedly, this is a known entity. If multiphase renal protocol CT has not been performed this would be recommended. There is no comparison imaging available at the time of interpretation. Additional incidental findings. This document has been electronically signed by: Bean Villalobos MD on 12/12/2024 06:49:23
--- OUTSIDE RECORDS SUMMARY | 2024-12-11 11:37 | XMS_ITS | Data Portability ---
Author Organization [place] - [facility] [employer] [facility], [facility] [employer] Address [address] [place] [address] Assessment No assessment recorded. Plan of Treatment [...] Diagnosis/Indication Diagnosis SNOMED-CT Code Diagnosis ICD10 Code Diagnosis Note [id number] GUSTABO Manzano [address] [place] [address] 03/31/2022 07:12:30 04/10/2022 10:16:26 Health Concerns Section Related Observation LastModified by Organization Detai ls LastModified Time None Recorded Concern Status LastModified by Organization Details LastModified Time None Recorded Advance Directives Directive None Recorded Payers Encounter Date Sequence Insurance Name Policy Number Policy Reyna Covered Member ID Reyna Member ID Guarantor Name 03/31/2022 1 [place] [facility] John Dowell [id number] John Dowell 03/31/2022 [employer] (MOVED TO HOLD) John Dowell DENTALINSID John Dowell
== END 2024-12-11 10:34 | disposition home or self-care (01) ==
LOC: HO.US 10:33
PROVIDERS: Visit Provider Urology
DX: N39.0 Urinary tract infection, site not specified (principal)
CPT/HCPCS: 76775

== ENCOUNTER → 2024-12-11 10:34 | Outpatient (BNV) | payer MEDICAID, SELFPAY | PROVIDERS: Visit Provider Radiology Vascular & Interventional Radiology | DX: N28.89 Other specified disorders of kidney and ureter (principal) | CPT/HCPCS: 76775 ==